=== PATIENT | male | born 1960 | race African-American/Black ===

== ENCOUNTER 2021-09-08 07:59 | Emergency (ER) | payer OTHER ==
[2021-09-08 08:09] VITALS: BP 134/85; PULSE 95; TEMP 98.1; BMI 31.3
[2021-09-08] MEDS ORDERED: FAMOTIDINE 20 MG/50 ML IVPB 20 MG/50 ML MG IVPB ONE ×2 (09:31→09:58)
[2021-09-08] MEDS ORDERED: ONDANSETRON 4 MG/2 ML VIAL IVPUSH ONE (09:31)
[2021-09-08] MEDS ORDERED: SODIUM CHLORIDE 1,000 ML IV STA (09:31)
[2021-09-08] MEDS ORDERED: ACETAMINOPHEN 1000 MG/100 ML BAG IVPB ONE (09:31)
[2021-09-08] MEDS ORDERED: MAG HYDROX/AL HYDROX/SIMETH 30 ML UNIT-DOSE CUP PO ONE (09:47)
[2021-09-08] MEDS ORDERED: ACETAMINOPHEN INJECTION 100 ML IVPB ONE (09:58)
[2021-09-08] MEDS ORDERED: ONDANSETRON 4 MG/2 ML VIAL ONE (09:58)
[2021-09-08 10:08] LABS: BASO % 0.3 % (0-2.0); EOS % 1.8 % (0-4.5); HEMATOCRIT 40.1 % (35.4-49); HEMOGLOBIN 12.8 GM/dL (11.7-16.9); LYMPH % 9.6 % (8-40); MCH 24.7 pg (25.7-33.7); MEAN CELL VOLUME 77.1 fl (80-96); MEAN PLT VOLUME 6.8 fl (7.5-11.1); MONO % 6.4 % (3.8-10.2); NEUT % 81.9 % (42.8-82.8); PLATELET COUNT 700 10^3/uL (134-434); RBC 5.21 M/mm3 (4.00-5.60); RDW 15.5 % (11.9-15.9); WHITE BLOOD COUNT 8.5 K/mm3 (4.0-10.0)
[2021-09-08] MEDS ORDERED: MAG HYDROX/AL HYDROX/SIMETH 30 ML UNIT-DOSE CUP ONE (10:15)
[2021-09-08 10:27] LABS: EPI CELLS 26 /uL (0-25.1); HYALINE CASTS 23 /uL (0-3.1); URINE APPEARANCE CLEAR; URINE BACTERIA 13 /uL (0-1359); URINE BILIRUBIN 2+ (NEGATIVE); URINE COLOR DK YELLOW; URINE GLUCOSE (UA) NEGATIVE (NEGATIVE); URINE KETONE 2+ (NEGATIVE); URINE LEUK ESTERASE NEGATIVE (NEGATIVE); URINE NITRITE NEGATIVE (NEGATIVE); URINE PROTEIN 2+ (NEGATIVE); URINE RBC 11 /uL (0-23.9); URINE WBC 38 /uL (0-25.8)
[2021-09-08 10:28] LABS: CALCIUM 9.4 mg/dL (8.5-10.1); MAGNESIUM 2.5 mg/dL (1.8-2.4)
[2021-09-08 10:29] LABS: ALBUMIN 3.8 g/dl (3.4-5.0); BLOOD UREA NITROGEN 12.9 mg/dL (7-18)
[2021-09-08 10:31] LABS: CREATININE 0.9 mg/dL (0.55-1.3); PHOSPHOROUS 3.4 mg/dL (2.5-4.9)
[2021-09-08 10:33] LABS: BILIRUBIN,TOTAL 0.8 mg/dL (0.2-1); TOT PROT 8.6 g/dl (6.4-8.2)
== END 2021-09-08 12:37 | disposition home or self-care (01) ==
LOC: JER 07:59
PROC: 3E0333Z Introduction of Anti-inflammatory into Peripheral Vein, Percutaneous Approach (ICD-10-PCS; principal; 2021-09-08)
PROC: 3E033GC Introduction of Other Therapeutic Substance into Peripheral Vein, Percutaneous Approach (ICD-10-PCS; 2021-09-08)
PROC: 3E033GC Introduction of Other Therapeutic Substance into Peripheral Vein, Percutaneous Approach (ICD-10-PCS; 2021-09-08)
PROC: 3E0337Z Introduction of Electrolytic and Water Balance Substance into Peripheral Vein, Percutaneous Approach (ICD-10-PCS; 2021-09-08)
DX: R10.13 Epigastric pain (principal)
CPT/HCPCS: 36415; 80053; 81003; 83690; 83735; 84100; 84484; 85025; 93005; 93010; 99285-25

== ENCOUNTER 2021-09-16 19:20 | Inpatient (IN) | payer OTHER ==
[2021-09-16] MEDS ORDERED: SODIUM CHLORIDE 0.9% 500 ML INFUS.BAG IV ONE (20:54)
[2021-09-16] MEDS ORDERED: KETOROLAC TROMETHAMINE 30 MG/1 ML VIAL IVPUSH ONE (20:59)
[2021-09-16] MEDS ORDERED: KETOROLAC TROMETHAMINE 30 MG/1 ML VIAL ONE (22:10)
[2021-09-16 22:29] LABS: BASO % 0.4 % (0-2.0); EOS % 1.9 % (0-4.5); HEMATOCRIT 39.6 % (35.4-49); LYMPH % 10.3 % (8-40); MCH 25.2 pg (25.7-33.7); MCHC 32.8 g/dl (32.0-35.9); MEAN PLT VOLUME 6.6 fl (7.5-11.1); NEUT % 74.4 % (42.8-82.8); PLATELET COUNT 770 10^3/uL (134-434); RBC 5.15 M/mm3 (4.00-5.60); RDW 16.5 % (11.9-15.9); WHITE BLOOD COUNT 8.6 K/mm3 (4.0-10.0)
[2021-09-16 22:35] LABS: EPI CELLS 6 /uL (0-25.1); HYALINE CASTS 1 /uL (0-3.1); PH,URINE 5.5 (5.0-8.0); URINE APPEARANCE CLEAR; URINE BILIRUBIN 3+ (NEGATIVE); URINE COLOR DK YELLOW; URINE GLUCOSE (UA) NEGATIVE (NEGATIVE); URINE KETONE 2+ (NEGATIVE); URINE LEUK ESTERASE TRACE (NEGATIVE); URINE NITRITE POSITIVE (NEGATIVE); URINE PROTEIN TRACE (NEGATIVE); URINE RBC 11 /uL (0-23.9); URINE UROBILINOGEN 4.0 E.U/dl mg/dL (0.2-1.0); URINE WBC 5 /uL (0-25.8)
[2021-09-16 22:38] LABS: URINE BACTERIA 1 /uL (0-1359)
[2021-09-16 22:51] LABS: BLOOD UREA NITROGEN 9.2 mg/dL (7-18)
[2021-09-16 22:52] LABS: ALBUMIN 3.7 g/dl (3.4-5.0)
[2021-09-16 22:55] LABS: CREATININE 0.8 mg/dL (0.55-1.3)
[2021-09-16 22:56] LABS: BILIRUBIN,TOTAL 3.2 mg/dL (0.2-1)
[2021-09-16] MEDS ORDERED: SULFAMETHOXAZOLE/TRIMETHOPRIM 800MG/160MG D.S. TABLET PO ONE (23:44)
[2021-09-16] MEDS ORDERED: SULFAMETHOXAZOLE/TRIMETHOPRIM 800MG/160MG D.S. TABLET ONE (23:58)
[2021-09-17] MEDS ORDERED: ONDANSETRON 4 MG/2 ML VIAL IVPUSH PRN (03:32)
[2021-09-17 03:38] LABS: BILIRUBIN,DIRECT 1.5 mg/dL (0.0-0.2)
[2021-09-17] MEDS: LACTATED RINGERS SOLUTION 1,000 ML/1,000 ML INFUS.BAG IV SCH (04:44)
[2021-09-17] MEDS ORDERED: ENOXAPARIN NA (PORCINE) 40 MG/0.4 ML DISP.SYRIN SQ ONE (10:49)
[2021-09-17] MEDS: ENOXAPARIN NA (PORCINE) 40 MG/0.4 ML DISP.SYRIN SQ SCH (11:02)
[2021-09-17] MEDS: ACETAMINOPHEN 1000 MG/100 ML BAG IVPB PRN (22:21)
[2021-09-18] MEDS: LACTATED RINGERS SOLUTION 1,000 ML/1,000 ML INFUS.BAG IV SCH (03:53)
[2021-09-18] MEDS: ACETAMINOPHEN 1000 MG/100 ML BAG IVPB PRN (03:54)
[2021-09-18 10:09] LABS: HEMATOCRIT 35.4 % (35.4-49); HEMOGLOBIN 11.2 GM/dL (11.7-16.9); MCH 24.8 pg (25.7-33.7); MCHC 31.5 g/dl (32.0-35.9); MEAN CELL VOLUME 78.8 fl (80-96); MEAN PLT VOLUME 6.7 fl (7.5-11.1); PLATELET COUNT 677 10^3/uL (134-434); WHITE BLOOD COUNT 6.2 K/mm3 (4.0-10.0)
[2021-09-18] MEDS: ENOXAPARIN NA (PORCINE) 40 MG/0.4 ML DISP.SYRIN SQ SCH (10:14)
[2021-09-18 10:26] LABS: CALCIUM 8.4 mg/dL (8.5-10.1)
[2021-09-18 10:27] LABS: MAGNESIUM 2.2 mg/dL (1.8-2.4)
[2021-09-18 10:30] LABS: BLOOD UREA NITROGEN 7.3 mg/dL (7-18); CREATININE 0.6 mg/dL (0.55-1.3); PHOSPHOROUS 3.4 mg/dL (2.5-4.9)
[2021-09-18 10:31] LABS: BILIRUBIN,TOTAL 2.4 mg/dL (0.2-1)
[2021-09-18 10:33] LABS: ALBUMIN 2.8 g/dl (3.4-5.0); TOT PROT 6.3 g/dl (6.4-8.2)
[2021-09-18 14:18] VITALS: BMI 32.2
[2021-09-19] MEDS: LACTATED RINGERS SOLUTION 1,000 ML/1,000 ML INFUS.BAG IV SCH (02:54)
[2021-09-19] MEDS: ACETAMINOPHEN 1000 MG/100 ML BAG IVPB PRN ×2 (02:54→09:05)
[2021-09-19 08:06] LABS: CARCINOEMBRYONIC ANTIGEN 88.3 ng/mL (0.0-4.7)
[2021-09-19 08:19] VITALS: BP 137/79; PULSE 60; TEMP 98.7
[2021-09-19] MEDS ORDERED: DEXTROSE 5%-LACTATED RINGERS 1,000 ML IV SCH (08:45)
[2021-09-19 09:00] LABS: BASO % 0.4 % (0-2.0); EOS % 3.9 % (0-4.5); HEMATOCRIT 36.3 % (35.4-49); HEMOGLOBIN 11.4 GM/dL (11.7-16.9); LYMPH % 15.4 % (8-40); MCH 24.6 pg (25.7-33.7); MCHC 31.3 g/dl (32.0-35.9); MEAN CELL VOLUME 78.7 fl (80-96); MEAN PLT VOLUME 6.7 fl (7.5-11.1); NEUT % 62.3 % (42.8-82.8); PLATELET COUNT 660 10^3/uL (134-434); RBC 4.61 M/mm3 (4.00-5.60); RDW 16.7 % (11.9-15.9); WHITE BLOOD COUNT 5.9 K/mm3 (4.0-10.0)
[2021-09-19 10:21] LABS: CALCIUM 8.5 mg/dL (8.5-10.1)
[2021-09-19 10:22] LABS: BLOOD UREA NITROGEN 6.1 mg/dL (7-18); MAGNESIUM 2.2 mg/dL (1.8-2.4)
[2021-09-19 10:25] LABS: CREATININE 0.5 mg/dL (0.55-1.3); PHOSPHOROUS 3.4 mg/dL (2.5-4.9)
== END 2021-09-19 12:50 | disposition left against medical advice (07) | DRG 247 ==
LOC: JER 19:20 → JERBED 23:57 → J7W 09-17 21:50
PROVIDERS: ADMIT Internal Medicine; ATTEND Internal Medicine
DX: K56.609 Unspecified intestinal obstruction, unspecified as to partial versus complete obstruction (principal); K86.2 Cyst of pancreas; D75.839 Thrombocytosis, unspecified; K40.90 Unilateral inguinal hernia, without obstruction or gangrene, not specified as recurrent; R63.4 Abnormal weight loss; R91.1 Solitary pulmonary nodule; R97.0 Elevated carcinoembryonic antigen [CEA]; R97.8 Other abnormal tumor markers; E66.9 Obesity, unspecified; Z68.32 Body mass index [BMI] 32.0-32.9, adult
CPT/HCPCS: 36415; 71046-TC-FY; 71250-TC; 74019-TC-FY; 74177-TC; 80048; 80053; 81003; 82248; 82378; 82728; 83540; 83550; 83735; 84100; 85025; 85027; 86301; 87086; 93005; 93010; 99285-25; C9803-CS; U0003; U0005

== ENCOUNTER 2021-09-22 16:00 | Inpatient (IN) | payer OTHER ==
[2021-09-22] MEDS ORDERED: LACTATED RINGERS SOLUTION 1,000 ML/1,000 ML INFUS.BAG IV SCH (17:30)
[2021-09-22] MEDS ORDERED: LIDOCAINE HCL 2% JELLY 10 ML CARTRIDGE UR ONE (17:37)
[2021-09-22] MEDS ORDERED: LIDOCAINE HCL 2% JELLY 10 ML CARTRIDGE ONE (17:39)
[2021-09-22 18:51] LABS: BASO % 0.3 % (0-2.0); EOS % 1.4 % (0-4.5); HEMATOCRIT 37.5 % (35.4-49); HEMOGLOBIN 11.8 GM/dL (11.7-16.9); MCHC 31.4 g/dl (32.0-35.9); MEAN CELL VOLUME 79.5 fl (80-96); MEAN PLT VOLUME 6.8 fl (7.5-11.1); MONO % 14.2 % (3.8-10.2); NEUT % 70.1 % (42.8-82.8); PLATELET COUNT 816 10^3/uL (134-434); RBC 4.71 M/mm3 (4.00-5.60); RDW 17.9 % (11.9-15.9); WHITE BLOOD COUNT 5.7 K/mm3 (4.0-10.0)
[2021-09-22 18:58] LABS: INR 1.49 (0.83-1.09); PROTHROMBIN TIME (PATIENT) 17.2 SEC (9.7-13.0)
[2021-09-22 19:01] LABS: ACTIVATED PTT 32.1 SECONDS (25.2-36.5)
[2021-09-22 19:10] LABS: CALCIUM 8.8 mg/dL (8.5-10.1)
[2021-09-22 19:11] LABS: ALBUMIN 3.3 g/dl (3.4-5.0)
[2021-09-22 19:14] LABS: CREATININE 0.6 mg/dL (0.55-1.3)
[2021-09-22 19:15] LABS: TOT PROT 7.3 g/dl (6.4-8.2)
[2021-09-22 19:16] LABS: BILIRUBIN,TOTAL 2.4 mg/dL (0.2-1)
[2021-09-22] MEDS ORDERED: ACETAMINOPHEN 1000 MG/100 ML BAG IVPB ONE (23:05)
[2021-09-22] MEDS ORDERED: ONDANSETRON 4 MG/2 ML VIAL IVPUSH PRN (23:53)
[2021-09-23] MEDS: DEXTROSE 5%-NORMAL SALINE 1,000 ML IV SCH ×2 (00:45→11:55)
[2021-09-23 02:43] VITALS: BMI 31.0
[2021-09-23] MEDS ORDERED: ACETAMINOPHEN 1000 MG/100 ML BAG IVPB PRN (05:30)
[2021-09-23 09:04] LABS: BASO % 0.4 % (0-2.0); EOS % 2.4 % (0-4.5); HEMATOCRIT 33.7 % (35.4-49); HEMOGLOBIN 10.9 GM/dL (11.7-16.9); LYMPH % 10.8 % (8-40); MCH 25.5 pg (25.7-33.7); MCHC 32.4 g/dl (32.0-35.9); MEAN CELL VOLUME 78.8 fl (80-96); MEAN PLT VOLUME 6.8 fl (7.5-11.1); MONO % 18.8 % (3.8-10.2); NEUT % 67.6 % (42.8-82.8); PLATELET COUNT 690 10^3/uL (134-434); RBC 4.27 M/mm3 (4.00-5.60); RDW 17.6 % (11.9-15.9); WHITE BLOOD COUNT 4.5 K/mm3 (4.0-10.0)
[2021-09-23 09:17] LABS: CALCIUM 8.3 mg/dL (8.5-10.1)
[2021-09-23 09:18] LABS: BLOOD UREA NITROGEN 7.3 mg/dL (7-18); MAGNESIUM 2.1 mg/dL (1.8-2.4)
[2021-09-23 09:21] LABS: CREATININE 0.5 mg/dL (0.55-1.3)
[2021-09-23] MEDS: ACETAMINOPHEN 1000 MG/100 ML BAG IVPB PRN (14:01)
[2021-09-23] MEDS ORDERED: PHYTONADIONE 10 MG/1 ML AMP IVPB ONE ×2 (15:35→17:45)
[2021-09-24] MEDS ORDERED: ACETAMINOPHEN 325 MG TABLET (FP) PO PRN
[2021-09-24] MEDS: ACETAMINOPHEN 1000 MG/100 ML BAG IVPB PRN (01:12)
[2021-09-24] MEDS: DEXTROSE 5%-NORMAL SALINE 1,000 ML IV SCH (06:01)
[2021-09-24 09:43] LABS: BASO % 0.2 % (0-2.0); EOS % 1.5 % (0-4.5); HEMATOCRIT 37.3 % (35.4-49); HEMOGLOBIN 11.9 GM/dL (11.7-16.9); LYMPH % 8.8 % (8-40); MCH 25.4 pg (25.7-33.7); MCHC 31.9 g/dl (32.0-35.9); MEAN CELL VOLUME 79.6 fl (80-96); MEAN PLT VOLUME 6.8 fl (7.5-11.1); MONO % 13.8 % (3.8-10.2); NEUT % 75.7 % (42.8-82.8); PLATELET COUNT 756 10^3/uL (134-434); RBC 4.69 M/mm3 (4.00-5.60); RDW 18.2 % (11.9-15.9); WHITE BLOOD COUNT 6.3 K/mm3 (4.0-10.0)
[2021-09-24] MEDS ORDERED: MIDAZOLAM HCL 2 MG/2 ML SINGLE DOSE VIAL ONE (09:50)
[2021-09-24] MEDS ORDERED: LIDOCAINE HCL/PF 2% SDV 5ML VIAL ONE (09:51)
[2021-09-24] MEDS ORDERED: ROCURONIUM BROMIDE 50 MG/5 ML SYRINGE ONE ×2 (09:51→11:58)
[2021-09-24] MEDS ORDERED: PROPOFOL 20 ML ONE (09:51)
[2021-09-24] MEDS ORDERED: SUCCINYLCHOLINE CHLORIDE 200 MG/10 ML SYRINGE ONE (09:54)
[2021-09-24 10:06] LABS: CALCIUM 8.8 mg/dL (8.5-10.1)
[2021-09-24 10:07] LABS: ALBUMIN 3.2 g/dl (3.4-5.0); BLOOD UREA NITROGEN 8.6 mg/dL (7-18)
[2021-09-24 10:10] LABS: CREATININE 0.5 mg/dL (0.55-1.3)
[2021-09-24 10:12] LABS: BILIRUBIN,TOTAL 1.8 mg/dL (0.2-1)
[2021-09-24] MEDS ORDERED: CLINDAMYCIN 900 MG PREMIX BAG IVPB ONE (11:30)
[2021-09-24] MEDS ORDERED: ceFAZolin SODIUM 1 GM VIAL ONE (11:48)
[2021-09-24] MEDS ORDERED: PIPERACILLIN/TAZOBACTAM 3.375 GM VIAL IVPB ONE (11:50)
[2021-09-24] MEDS ORDERED: GENTAMICIN SO4 80 MG/2 ML VIAL ONE (12:03)
[2021-09-24] MEDS ORDERED: GENTAMICIN SO4 80 MG/2 ML VIAL IVPB ONE (12:15)
[2021-09-24] MEDS ORDERED: ACETAMINOPHEN INJECTION 100 ML IVPB ONE (12:23)
[2021-09-24] MEDS ORDERED: HYDROmorphone HCl 2 MG/ML VIAL ONE (12:25)
[2021-09-24] MEDS ORDERED: NEOSTIGMINE METHYLSULFATE 0.5 MG/ML - 10 ML MDV ONE (13:45)
[2021-09-24] MEDS ORDERED: GLYCOPYRROLATE 0.2 MG/1 ML VIAL ONE (13:45)
[2021-09-24] MEDS ORDERED: ONDANSETRON 4 MG/2 ML VIAL IVPUSH PRN ×3 (14:18→15:24)
[2021-09-24] MEDS ORDERED: ACETAMINOPHEN 1000 MG/100 ML BAG IVPB ONE (14:20)
[2021-09-24] MEDS ORDERED: LACTATED RINGERS SOLUTION 1,000 ML IV SCH (14:30)
[2021-09-24] MEDS ORDERED: HYDROmorphone *PCA* 10MG/50ML DISP.SYRIN PCA SCH (14:30)
[2021-09-24] MEDS ORDERED: HYDROmorphone *PCA* 10MG/50ML DISP.SYRIN ONE (14:50)
[2021-09-24] MEDS: HYDROmorphone *PCA* 10MG/50ML DISP.SYRIN PCA SCH ×2 (15:05→16:59)
[2021-09-24] MEDS ORDERED: LACTATED RINGERS SOLUTION 1,000 ML/1,000 ML INFUS.BAG IV SCH (15:15)
[2021-09-24] MEDS ORDERED: MEROPENEM 1 GM VIAL (RESTRICTED TO ID) IVPB ONE ×2 (16:42→23:13)
[2021-09-24] MEDS ORDERED: DEXTROSE 5%-WATER 100 ML IVPB ONE ×2 (16:42→23:13)
[2021-09-24] MEDS: LACTATED RINGERS SOLUTION 1,000 ML IV SCH (17:00)
[2021-09-24] MEDS: MEROPENEM 1 GM in DEXTROSE 5%-WATER 100 ML IVPB SCH ×2 (17:00→23:19)
[2021-09-24] MEDS: ACETAMINOPHEN 1000 MG/100 ML BAG IVPB SCH (21:55)
[2021-09-24] MEDS: FAMOTIDINE 20 MG/50 ML IVPB 20 MG/50 ML MG IVPB SCH (21:55)
[2021-09-24] MEDS: HEPARIN NA (PORCINE) 5,000 UNITS/ML 1ML VIAL SQ SCH (21:56)
[2021-09-25] MEDS: ACETAMINOPHEN 1000 MG/100 ML BAG IVPB SCH ×5 (01:14→20:14)
[2021-09-25] MEDS: LACTATED RINGERS SOLUTION 1,000 ML IV SCH ×2 (02:54→18:36)
[2021-09-25] MEDS ORDERED: MEROPENEM 1 GM VIAL (RESTRICTED TO ID) IVPB ONE (05:40)
[2021-09-25] MEDS ORDERED: DEXTROSE 5%-WATER 100 ML IVPB ONE ×2 (05:40→13:00)
[2021-09-25] MEDS: MEROPENEM 1 GM in DEXTROSE 5%-WATER 100 ML IVPB SCH (06:33)
[2021-09-25 08:36] LABS: EOS % 0.1 % (0-4.5); HEMOGLOBIN 11.9 GM/dL (11.7-16.9); LYMPH % 3.9 % (8-40); MCH 25.2 pg (25.7-33.7); MCHC 31.3 g/dl (32.0-35.9); MEAN CELL VOLUME 80.3 fl (80-96); MEAN PLT VOLUME 6.9 fl (7.5-11.1); MONO % 6.9 % (3.8-10.2); NEUT % 89.1 % (42.8-82.8); PLATELET COUNT 651 10^3/uL (134-434); RBC 4.73 M/mm3 (4.00-5.60); RDW 18.7 % (11.9-15.9); WHITE BLOOD COUNT 13.1 K/mm3 (4.0-10.0)
[2021-09-25 09:04] LABS: CALCIUM 8.1 mg/dL (8.5-10.1)
[2021-09-25 09:05] LABS: BLOOD UREA NITROGEN 13.9 mg/dL (7-18); MAGNESIUM 1.8 mg/dL (1.8-2.4)
[2021-09-25 09:08] LABS: CREATININE 0.7 mg/dL (0.55-1.3); PHOSPHOROUS 4.7 mg/dL (2.5-4.9)
[2021-09-25] MEDS: FAMOTIDINE 20 MG/50 ML IVPB 20 MG/50 ML MG IVPB SCH ×2 (09:26→23:08)
[2021-09-25] MEDS: HEPARIN NA (PORCINE) 5,000 UNITS/ML 1ML VIAL SQ SCH ×2 (09:26→23:07)
[2021-09-25] MEDS ORDERED: SODIUM CHLORIDE 1,000 ML IV STA (12:42)
[2021-09-25] MEDS: CEFTRIAXONE 2 GM in DEXTROSE 5%-WATER 2 GM/100 ML BAG IVPB SCH (13:05)
[2021-09-25] MEDS ORDERED: SODIUM CHLORIDE 1,000 ML IV SCH (15:45)
[2021-09-25] MEDS: HYDROmorphone *PCA* 10MG/50ML DISP.SYRIN PCA SCH (18:06)
[2021-09-26] MEDS: ACETAMINOPHEN 1000 MG/100 ML BAG IVPB SCH ×3 (01:30→18:43)
[2021-09-26] MEDS: LACTATED RINGERS SOLUTION 1,000 ML IV SCH ×2 (03:20→11:52)
[2021-09-26 09:13] LABS: BASO % 0.1 % (0-2.0); HEMATOCRIT 30.6 % (35.4-49); LYMPH % 3.7 % (8-40); MCH 25.9 pg (25.7-33.7); MCHC 32.6 g/dl (32.0-35.9); MEAN CELL VOLUME 79.3 fl (80-96); MEAN PLT VOLUME 6.7 fl (7.5-11.1); MONO % 5.7 % (3.8-10.2); NEUT % 87.5 % (42.8-82.8); PLATELET COUNT 536 10^3/uL (134-434); RBC 3.86 M/mm3 (4.00-5.60); RDW 18.8 % (11.9-15.9); WHITE BLOOD COUNT 15.4 K/mm3 (4.0-10.0)
[2021-09-26 09:22] LABS: BLOOD UREA NITROGEN 11.1 mg/dL (7-18)
[2021-09-26 09:25] LABS: CREATININE 0.5 mg/dL (0.55-1.3)
[2021-09-26 09:27] LABS: BILIRUBIN,TOTAL 1.6 mg/dL (0.2-1)
[2021-09-26 09:35] LABS: ALBUMIN 1.9 g/dl (3.4-5.0); TOT PROT 4.9 g/dl (6.4-8.2)
[2021-09-26] MEDS ORDERED: LACTATED RINGERS SOLUTION 1000 ML INFUS.BAG IV SCH (10:30)
[2021-09-26] MEDS ORDERED: morphine SULFATE 4 MG/ML VIAL IVPUSH PRN (10:30)
[2021-09-26] MEDS ORDERED: DEXTROSE 5%-WATER 100 ML IVPB ONE (10:54)
[2021-09-26] MEDS: FAMOTIDINE 20 MG/50 ML IVPB 20 MG/50 ML MG IVPB SCH ×2 (11:01→22:01)
[2021-09-26] MEDS: HEPARIN NA (PORCINE) 5,000 UNITS/ML 1ML VIAL SQ SCH ×2 (11:01→22:01)
[2021-09-26] MEDS: CEFTRIAXONE 2 GM in DEXTROSE 5%-WATER 2 GM/100 ML BAG IVPB SCH (11:02)
[2021-09-26] MEDS ORDERED: SODIUM CHLORIDE 0.9% 500 ML INFUS.BAG IV ONE (20:28)
[2021-09-27] MEDS: LACTATED RINGERS SOLUTION 1,000 ML IV SCH ×3 (01:00→20:12)
[2021-09-27] MEDS: ACETAMINOPHEN 1000 MG/100 ML BAG IVPB SCH (02:51)
[2021-09-27] MEDS ORDERED: DEXTROSE 5%-WATER 100 ML IVPB ONE (09:04)
[2021-09-27] MEDS: FAMOTIDINE 20 MG/50 ML IVPB 20 MG/50 ML MG IVPB SCH ×2 (09:12→21:12)
[2021-09-27] MEDS: CEFTRIAXONE 2 GM in DEXTROSE 5%-WATER 2 GM/100 ML BAG IVPB SCH (09:12)
[2021-09-27] MEDS ORDERED: SODIUM CHLORIDE 1,000 ML IV STA (09:19)
[2021-09-27 09:21] LABS: BASO % 0.1 % (0-2.0); EOS % 3.1 % (0-4.5); HEMATOCRIT 28.8 % (35.4-49); HEMOGLOBIN 9.4 GM/dL (11.7-16.9); LYMPH % 3.1 % (8-40); MCH 25.7 pg (25.7-33.7); MCHC 32.5 g/dl (32.0-35.9); MEAN PLT VOLUME 6.6 fl (7.5-11.1); MONO % 6.3 % (3.8-10.2); NEUT % 87.4 % (42.8-82.8); PLATELET COUNT 531 10^3/uL (134-434); RBC 3.65 M/mm3 (4.00-5.60); RDW 18.6 % (11.9-15.9); WHITE BLOOD COUNT 14.2 K/mm3 (4.0-10.0)
[2021-09-27 09:32] LABS: CALCIUM 7.9 mg/dL (8.5-10.1)
[2021-09-27 09:33] LABS: ALBUMIN 1.8 g/dl (3.4-5.0); BLOOD UREA NITROGEN 6.4 mg/dL (7-18)
[2021-09-27 09:34] LABS: CREATININE 0.5 mg/dL (0.55-1.3)
[2021-09-27 09:36] LABS: BILIRUBIN,TOTAL 1.2 mg/dL (0.2-1)
[2021-09-27] MEDS: HEPARIN NA (PORCINE) 5,000 UNITS/ML 1ML VIAL SQ SCH ×2 (10:00→21:12)
[2021-09-28] MEDS: LACTATED RINGERS SOLUTION 1,000 ML IV SCH ×2 (04:00→17:09)
[2021-09-28] MEDS ORDERED: DEXTROSE 5%-WATER 100 ML IVPB ONE (09:08)
[2021-09-28] MEDS: HEPARIN NA (PORCINE) 5,000 UNITS/ML 1ML VIAL SQ SCH ×2 (09:32→21:36)
[2021-09-28] MEDS: FAMOTIDINE 20 MG/50 ML IVPB 20 MG/50 ML MG IVPB SCH ×2 (10:07→21:36)
[2021-09-28] MEDS: CEFTRIAXONE 2 GM in DEXTROSE 5%-WATER 2 GM/100 ML BAG IVPB SCH (11:36)
[2021-09-29] MEDS ORDERED: SODIUM CHLORIDE 500 ML IV STA (04:49)
[2021-09-29] MEDS ORDERED: DEXTROSE 5%-WATER 100 ML IVPB ONE (09:26)
[2021-09-29] MEDS: HEPARIN NA (PORCINE) 5,000 UNITS/ML 1ML VIAL SQ SCH ×2 (09:30→21:01)
[2021-09-29] MEDS: FAMOTIDINE 20 MG/50 ML IVPB 20 MG/50 ML MG IVPB SCH ×2 (09:30→21:01)
[2021-09-29] MEDS: CEFTRIAXONE 2 GM in DEXTROSE 5%-WATER 2 GM/100 ML BAG IVPB SCH (09:31)
[2021-09-29] MEDS: KETOROLAC TROMETHAMINE 15 MG/ML VIAL IVPUSH PRN ×2 (12:12→20:54)
[2021-09-29] MEDS: LACTATED RINGERS SOLUTION 1,000 ML IV SCH ×2 (13:17→20:54)
[2021-09-29 13:46] LABS: BASO % 0.1 % (0-2.0); EOS % 3.7 % (0-4.5); HEMATOCRIT 32.2 % (35.4-49); HEMOGLOBIN 10.5 GM/dL (11.7-16.9); LYMPH % 7.2 % (8-40); MCH 25.5 pg (25.7-33.7); MCHC 32.6 g/dl (32.0-35.9); MEAN CELL VOLUME 78.3 fl (80-96); MEAN PLT VOLUME 6.6 fl (7.5-11.1); MONO % 11.6 % (3.8-10.2); NEUT % 77.4 % (42.8-82.8); PLATELET COUNT 589 10^3/uL (134-434); RBC 4.11 M/mm3 (4.00-5.60); RDW 18.2 % (11.9-15.9); WHITE BLOOD COUNT 8.4 K/mm3 (4.0-10.0)
[2021-09-29 14:14] LABS: CALCIUM 8.1 mg/dL (8.5-10.1)
[2021-09-29 14:15] LABS: BLOOD UREA NITROGEN 5.9 mg/dL (7-18)
[2021-09-29 14:18] LABS: CREATININE 0.5 mg/dL (0.55-1.3)
[2021-09-29 14:19] LABS: BILIRUBIN,TOTAL 0.4 mg/dL (0.2-1)
[2021-09-29 14:20] LABS: TOT PROT 6.1 g/dl (6.4-8.2)
[2021-09-29 14:30] LABS: ALBUMIN 2.3 g/dl (3.4-5.0)
[2021-09-29 14:33] LABS: ANISOCYTOSIS 0; HELMET CELLS 0; HOWELL-JOLLY BODIES 0; MACROCYTOSIS 0; OVALOCYTE 0; ROULEAU 0; SICKELED CELLS 0; TARGET CELLS 0; TEAR DROP CELLS 0; TOXIC GRANULATION 0
[2021-09-29] MEDS ORDERED: POTASSIUM CHLORIDE ORAL LIQUID 20 MEQ/15 ML PO ONE (15:05)
[2021-09-30 08:19] LABS: HEMOGLOBIN 9.5 GM/dL (11.7-16.9); MCH 25.9 pg (25.7-33.7); MCHC 32.7 g/dl (32.0-35.9); MEAN CELL VOLUME 79.3 fl (80-96); MEAN PLT VOLUME 6.9 fl (7.5-11.1); PLATELET COUNT 522 10^3/uL (134-434); RBC 3.65 M/mm3 (4.00-5.60); RDW 18.6 % (11.9-15.9); WHITE BLOOD COUNT 10.3 K/mm3 (4.0-10.0)
[2021-09-30 08:31] LABS: ALBUMIN 2.1 g/dl (3.4-5.0); BLOOD UREA NITROGEN 7.3 mg/dL (7-18)
[2021-09-30 08:34] LABS: CREATININE 0.4 mg/dL (0.55-1.3)
[2021-09-30 08:36] LABS: BILIRUBIN,TOTAL 0.6 mg/dL (0.2-1); TOT PROT 5.4 g/dl (6.4-8.2)
[2021-09-30] MEDS ORDERED: DEXTROSE 5%-WATER 100 ML IVPB ONE (09:15)
[2021-09-30] MEDS: FAMOTIDINE 20 MG/50 ML IVPB 20 MG/50 ML MG IVPB SCH ×2 (09:24→21:52)
[2021-09-30] MEDS: CEFTRIAXONE 2 GM in DEXTROSE 5%-WATER 2 GM/100 ML BAG IVPB SCH (09:26)
[2021-09-30] MEDS: HEPARIN NA (PORCINE) 5,000 UNITS/ML 1ML VIAL SQ SCH ×2 (09:27→21:52)
[2021-09-30 10:50] LABS: ANISOCYTOSIS 1+; MACROCYTOSIS 0; OVALOCYTE 2+
[2021-09-30] MEDS: LACTATED RINGERS SOLUTION 1,000 ML IV SCH (13:56)
[2021-09-30] MEDS: KETOROLAC TROMETHAMINE 15 MG/ML VIAL IVPUSH PRN (21:52)
[2021-10-01] MEDS: LACTATED RINGERS SOLUTION 1,000 ML IV SCH ×2 (02:09→17:07)
[2021-10-01] MEDS ORDERED: DEXTROSE 5%-WATER 100 ML IVPB ONE (10:16)
[2021-10-01] MEDS: CEFTRIAXONE 2 GM in DEXTROSE 5%-WATER 2 GM/100 ML BAG IVPB SCH (10:51)
[2021-10-01] MEDS: FAMOTIDINE 20 MG/50 ML IVPB 20 MG/50 ML MG IVPB SCH ×2 (10:51→22:55)
[2021-10-01] MEDS: HEPARIN NA (PORCINE) 5,000 UNITS/ML 1ML VIAL SQ SCH ×2 (10:51→22:55)
[2021-10-02] MEDS ORDERED: DEXTROSE 5%-WATER 100 ML IVPB ONE (09:59)
[2021-10-02] MEDS: CEFTRIAXONE 2 GM in DEXTROSE 5%-WATER 2 GM/100 ML BAG IVPB SCH (10:05)
[2021-10-02] MEDS: FAMOTIDINE 20 MG/50 ML IVPB 20 MG/50 ML MG IVPB SCH ×2 (10:05→23:14)
[2021-10-02] MEDS: HEPARIN NA (PORCINE) 5,000 UNITS/ML 1ML VIAL SQ SCH ×2 (10:06→23:14)
[2021-10-02 12:30] LABS: BASO % 0.5 % (0-2.0); EOS % 4.8 % (0-4.5); HEMATOCRIT 33.7 % (35.4-49); HEMOGLOBIN 10.9 GM/dL (11.7-16.9); LYMPH % 7.1 % (8-40); MCH 25.7 pg (25.7-33.7); MCHC 32.3 g/dl (32.0-35.9); MEAN CELL VOLUME 79.7 fl (80-96); MEAN PLT VOLUME 6.9 fl (7.5-11.1); MONO % 7.4 % (3.8-10.2); NEUT % 80.2 % (42.8-82.8); PLATELET COUNT 719 10^3/uL (134-434); RBC 4.23 M/mm3 (4.00-5.60); RDW 19.1 % (11.9-15.9); WHITE BLOOD COUNT 9.1 K/mm3 (4.0-10.0)
[2021-10-02 13:33] LABS: ALBUMIN 2.5 g/dl (3.4-5.0); BILIRUBIN,TOTAL 0.7 mg/dL (0.2-1); BLOOD UREA NITROGEN 3.5 mg/dL (7-18); CALCIUM 8.2 mg/dL (8.5-10.1); CREATININE 0.5 mg/dL (0.55-1.3); TOT PROT 6.4 g/dl (6.4-8.2)
[2021-10-02] MEDS: LACTATED RINGERS SOLUTION 1,000 ML IV SCH (17:00)
[2021-10-02] MEDS: metroNIDAZOLE 250 MG TABLET PO SCH (23:15)
[2021-10-02] MEDS: CEFUROXIME AXETIL 500 MG TABLET PO SCH (23:16)
[2021-10-03] MEDS: metroNIDAZOLE 250 MG TABLET PO SCH ×3 (05:35→21:06)
[2021-10-03] MEDS: LACTATED RINGERS SOLUTION 1,000 ML IV SCH (05:44)
[2021-10-03] MEDS: FAMOTIDINE 20 MG/50 ML IVPB 20 MG/50 ML MG IVPB SCH (09:59)
[2021-10-03] MEDS: CEFUROXIME AXETIL 500 MG TABLET PO SCH ×2 (09:59→21:06)
[2021-10-03] MEDS: HEPARIN NA (PORCINE) 5,000 UNITS/ML 1ML VIAL SQ SCH ×2 (10:00→21:06)
[2021-10-04] MEDS: metroNIDAZOLE 250 MG TABLET PO SCH ×3 (06:09→21:25)
[2021-10-04 09:10] LABS: BASO % 0.6 % (0-2.0); EOS % 5.5 % (0-4.5); HEMATOCRIT 32.6 % (35.4-49); HEMOGLOBIN 10.6 GM/dL (11.7-16.9); LYMPH % 9.2 % (8-40); MCH 25.7 pg (25.7-33.7); MCHC 32.4 g/dl (32.0-35.9); MEAN CELL VOLUME 79.2 fl (80-96); MEAN PLT VOLUME 6.7 fl (7.5-11.1); MONO % 7.7 % (3.8-10.2); PLATELET COUNT 848 10^3/uL (134-434); RBC 4.12 M/mm3 (4.00-5.60); RDW 18.8 % (11.9-15.9); WHITE BLOOD COUNT 8.1 K/mm3 (4.0-10.0)
[2021-10-04 09:31] LABS: ALBUMIN 2.5 g/dl (3.4-5.0); CALCIUM 8.6 mg/dL (8.5-10.1)
[2021-10-04 09:32] LABS: BLOOD UREA NITROGEN 3.6 mg/dL (7-18)
[2021-10-04 09:34] LABS: CREATININE 0.5 mg/dL (0.55-1.3)
[2021-10-04 09:36] LABS: BILIRUBIN,TOTAL 0.5 mg/dL (0.2-1); TOT PROT 6.1 g/dl (6.4-8.2)
[2021-10-04 09:44] LABS: INR 1.45 (0.83-1.09); PROTHROMBIN TIME (PATIENT) 16.7 SEC (9.7-13.0)
[2021-10-04] MEDS: HEPARIN NA (PORCINE) 5,000 UNITS/ML 1ML VIAL SQ SCH ×2 (10:37→21:25)
[2021-10-04] MEDS: CEFUROXIME AXETIL 500 MG TABLET PO SCH ×2 (10:37→21:25)
[2021-10-05] MEDS: metroNIDAZOLE 250 MG TABLET PO SCH ×3 (06:16→21:26)
[2021-10-05] MEDS: HEPARIN NA (PORCINE) 5,000 UNITS/ML 1ML VIAL SQ SCH ×2 (09:13→21:25)
[2021-10-05] MEDS: CEFUROXIME AXETIL 500 MG TABLET PO SCH ×2 (09:13→21:29)
[2021-10-06] MEDS: metroNIDAZOLE 250 MG TABLET PO SCH ×2 (06:26→13:35)
[2021-10-06 06:38] VITALS: RESP 18
[2021-10-06] MEDS: HEPARIN NA (PORCINE) 5,000 UNITS/ML 1ML VIAL SQ SCH (10:08)
[2021-10-06] MEDS: CEFUROXIME AXETIL 500 MG TABLET PO SCH (10:08)
[2021-10-06 15:03] VITALS: BP 139/73; PULSE 95; TEMP 97.8
== END 2021-10-06 18:13 | disposition home or self-care (01) | DRG 221 ==
LOC: JER 16:00 → JERBED 18:00 → J7W 22:37 → J8W 09-25 21:29
PROVIDERS: ADMIT Internal Medicine; ATTEND Internal Medicine
PROC: 0DT90ZZ Resection of Duodenum, Open Approach (ICD-10-PCS; 2021-09-24)
PROC: 0DN90ZZ Release Duodenum, Open Approach (ICD-10-PCS; 2021-09-24)
PROC: 0YQ50ZZ Repair Right Inguinal Region, Open Approach (ICD-10-PCS; 2021-09-24)
PROC: 0DTF0ZZ Resection of Right Large Intestine, Open Approach (ICD-10-PCS; principal; 2021-09-24 11:15)
DX: C18.9 Malignant neoplasm of colon, unspecified (principal); K56.609 Unspecified intestinal obstruction, unspecified as to partial versus complete obstruction; R17 Unspecified jaundice; Z68.31 Body mass index [BMI] 31.0-31.9, adult; D50.9 Iron deficiency anemia, unspecified; D75.838 Other thrombocytosis; E04.9 Nontoxic goiter, unspecified; K42.9 Umbilical hernia without obstruction or gangrene; K86.9 Disease of pancreas, unspecified; R11.2 Nausea with vomiting, unspecified; R63.0 Anorexia; R63.4 Abnormal weight loss; R91.1 Solitary pulmonary nodule; D72.829 Elevated white blood cell count, unspecified; Z88.0 Allergy status to penicillin
CPT/HCPCS: 36415; 71046-TC-FY; 71250-TC; 74018-TC-FY; 74177-TC; 80048; 80053; 83735; 84100; 84439; 84443; 85025; 85610; 85730; 86140; 86850; 86900; 86901; 87324; 87449; 88307-TC; 88309-TC; 93005; 93010; 94010; 94760; 97116-GP; 97161-GP; 99285-25; C9803-CS; J1644; Q9967; U0003; U0005

== ENCOUNTER 2021-12-18 04:56 | Day surgery (SDC) | payer OTHER ==
[2021-12-15 12:25] VITALS: BMI 23.6
[2021-12-18 09:19] LABS: EOS % 4.6 % (0-4.5); HEMATOCRIT 39.7 % (35.4-49); HEMOGLOBIN 12.5 GM/dL (11.7-16.9); LYMPH % 15.8 % (8-40); MCH 24.8 pg (25.7-33.7); MCHC 31.4 g/dl (32.0-35.9); MEAN CELL VOLUME 79.1 fl (80-96); MONO % 8.4 % (3.8-10.2); NEUT % 70.2 % (42.8-82.8); PLATELET COUNT 629 10^3/uL (134-434); RBC 5.02 M/mm3 (4.00-5.60); RDW 15.9 % (11.9-15.9); WHITE BLOOD COUNT 6.8 K/mm3 (4.0-10.0)
[2021-12-18 09:28] LABS: INR 1.36 (0.83-1.09); PROTHROMBIN TIME (PATIENT) 15.7 SEC (9.7-13.0)
[2021-12-18 09:43] LABS: CALCIUM 9.2 mg/dL (8.5-10.1)
[2021-12-18 09:44] LABS: ALBUMIN 3.5 g/dl (3.4-5.0); BLOOD UREA NITROGEN 8.8 mg/dL (7-18)
[2021-12-18 09:47] LABS: CREATININE 0.8 mg/dL (0.55-1.3)
[2021-12-18 09:49] LABS: BILIRUBIN,TOTAL 0.5 mg/dL (0.2-1); TOT PROT 7.7 g/dl (6.4-8.2)
== END 2021-12-18 09:25 | disposition home or self-care (01) ==
LOC: JRADIR 04:56
PROVIDERS: ATTEND Internal Medicine Hematology & Oncology
PROC: 0JH63WZ Insertion of Totally Implantable Vascular Access Device into Chest Subcutaneous Tissue and Fascia, Percutaneous Approach (ICD-10-PCS; principal; 2021-12-18)
PROC: 3E04305 Introduction of Other Antineoplastic into Central Vein, Percutaneous Approach (ICD-10-PCS; 2021-12-18)
PROC: 3E04305 Introduction of Other Antineoplastic into Central Vein, Percutaneous Approach (ICD-10-PCS; 2021-12-18)
DX: Z51.11 Encounter for antineoplastic chemotherapy (principal); C18.0 Malignant neoplasm of cecum
CPT/HCPCS: 36561; 96367; 96375; 96411; 96413; 96416; C1788; 36415; 80053; 85025; 85610

== ENCOUNTER 2021-12-19 05:00 | Day surgery (SDC) | payer OTHER ==
[2021-12-19] MEDS ORDERED: ATROPINE SO4 0.4 MG/1 ML VIAL IVPUSH ONE (09:00)
[2021-12-19] MEDS ORDERED: PALONOSETRON HCL 0.25 MG/5 ML VIAL IVPUSH ONE (09:00)
[2021-12-19] MEDS ORDERED: DEXAMETHASONE SODIUM PHOSPHATE 10 MG in SODIUM CHLORIDE 50 ML IVPB ONE (09:00)
[2021-12-19] MEDS ORDERED: SODIUM CHLORIDE 250 ML IV ONE (09:00)
[2021-12-19] MEDS ORDERED: PORTA CATH FLUSH 10 ML IVPUSH PRN (09:13)
[2021-12-19] MEDS ORDERED: DEXTROSE 5% IVPB ONE (09:30)
[2021-12-19] MEDS ORDERED: WATER IVPB ONE (09:30)
[2021-12-19] MEDS ORDERED: LEUCOVORIN IVPB ONE (09:30)
[2021-12-19] MEDS ORDERED: MIDAZOLAM HCL 2 MG/2 ML SINGLE DOSE VIAL ONE (10:00)
[2021-12-19] MEDS ORDERED: IRINOTECAN HCL 370 MG in DEXTROSE 5%-WATER - 500 ML IVPB ONE (10:00)
[2021-12-19] MEDS ORDERED: FENTANYL CITRATE/PF 50 MCG/ML VIAL IVPUSH ONE ×2 (10:25→10:38)
[2021-12-19] MEDS ORDERED: MIDAZOLAM HCL 2 MG/2 ML SINGLE DOSE VIAL IVPUSH ONE ×2 (10:25→10:38)
[2021-12-19] MEDS ORDERED: SODIUM CHLORIDE 500 ML IV ONE (10:30)
[2021-12-19 10:59] VITALS: BMI 27.1
[2021-12-19] MEDS ORDERED: FLUOROURACIL 500 MG/10 ML VIAL IVPUSH ONE (11:30)
[2021-12-19] MEDS ORDERED: SODIUM CHLORIDE CP ONE (11:45)
[2021-12-19] MEDS ORDERED: FLUOROURACIL CP ONE (11:45)
[2021-12-19 18:52] VITALS: BP 133/84; PULSE 75; RESP 20; TEMP 97.2
== END 2021-12-19 17:00 | disposition home or self-care (01) ==
LOC: JRADIR 05:00
PROVIDERS: ATTEND Internal Medicine Hematology & Oncology
PROC: 0JH63XZ Insertion of Tunneled Vascular Access Device into Chest Subcutaneous Tissue and Fascia, Percutaneous Approach (ICD-10-PCS; principal; 2021-12-19)
PROC: 3E04305 Introduction of Other Antineoplastic into Central Vein, Percutaneous Approach (ICD-10-PCS; 2021-12-19)
DX: C18.0 Malignant neoplasm of cecum (principal)
CPT/HCPCS: 36561; 96366; 96367; 96375; 96411; 96413; 96416; C1788; 77001-TC-FY; G0498; J2469; J9190; J9206

== ENCOUNTER 2021-12-21 14:58 | Day surgery (SDC) | payer OTHER ==
[2021-12-21 18:38] VITALS: BP 107/63; PULSE 100; RESP 20; TEMP 97.9
[2021-12-21] MEDS ORDERED: PORTA CATH FLUSH 10 ML IVPUSH PRN (18:43)
== END 2021-12-21 18:58 | disposition home or self-care (01) ==
LOC: JONCCHEMO 14:58
PROVIDERS: ATTEND Internal Medicine Hematology & Oncology
DX: Z53.8 Procedure and treatment not carried out for other reasons (principal)

== ENCOUNTER 2022-01-03 10:41 | Day surgery (SDC) | payer OTHER ==
[~2022-01-03 10:41] MED LIST: ATROPINE SO4 0.4 MG/1 ML VIAL IVPUSH ONE; BEVACIZUMAB AWWB IVPB ONE; DEXAMETHASONE SODIUM PHOSPHATE 10 MG in SODIUM CHLORIDE 50 ML IVPB ONE; DEXTROSE 5% IVPB ONE; IRINOTECAN HCL 370 MG in DEXTROSE 5%-WATER - 500 ML IVPB ONE; LEUCOVORIN IVPB ONE; PALONOSETRON HCL 0.25 MG/5 ML VIAL IVPUSH ONE; SODIUM CHLORIDE 250 ML IV ONE; SODIUM CHLORIDE IVPB ONE; WATER IVPB ONE
[2022-01-03 11:24] LABS: BASO % 0.6 % (0-2.0); EOS % 6.2 % (0-4.5); HEMATOCRIT 34.3 % (35.4-49); HEMOGLOBIN 11.1 GM/dL (11.7-16.9); LYMPH % 23.4 % (8-40); MCH 25.6 pg (25.7-33.7); MCHC 32.5 g/dl (32.0-35.9); MEAN CELL VOLUME 78.7 fl (80-96); MEAN PLT VOLUME 6.2 fl (7.5-11.1); MONO % 10.2 % (3.8-10.2); NEUT % 59.6 % (42.8-82.8); PLATELET COUNT 562 10^3/uL (134-434); RBC 4.36 M/mm3 (4.00-5.60); RDW 16.1 % (11.9-15.9); WHITE BLOOD COUNT 4.2 K/mm3 (4.0-10.0)
[2022-01-03 11:53] LABS: BLOOD UREA NITROGEN 6.9 mg/dL (7-18); CALCIUM 8.5 mg/dL (8.5-10.1)
[2022-01-03 11:54] LABS: ALBUMIN 3.3 g/dl (3.4-5.0); MAGNESIUM 2.2 mg/dL (1.8-2.4)
[2022-01-03 11:56] LABS: BILIRUBIN,DIRECT 0.2 mg/dL (0.0-0.2)
[2022-01-03 11:57] LABS: CREATININE 0.8 mg/dL (0.55-1.3); TOT PROT 7.3 g/dl (6.4-8.2)
[2022-01-03 12:00] LABS: BILIRUBIN,TOTAL 0.3 mg/dL (0.2-1)
[2022-01-03] MEDS ORDERED: FLUOROURACIL 500 MG/10 ML VIAL IVPUSH ONE (12:30)
[2022-01-03] MEDS ORDERED: SODIUM CHLORIDE CP ONE (12:45)
[2022-01-03] MEDS ORDERED: FLUOROURACIL CP ONE (12:45)
[2022-01-03] MEDS ORDERED: DEXAMETHASONE SOD PHOSPHATE 10 MG/1 ML VIAL ONE (13:09)
[2022-01-03 17:21] VITALS: BP 128/82; PULSE 85; RESP 18; TEMP 98.4
[2022-01-05 14:07] LABS: TOTAL PROTEIN, URINE 14.8 mg/dL (Not Estab.)
== END 2022-01-03 16:57 | disposition home or self-care (01) ==
LOC: JONCCHEMO 10:41
PROVIDERS: ATTEND Internal Medicine Hematology & Oncology
DX: Z51.11 Encounter for antineoplastic chemotherapy (principal); C18.0 Malignant neoplasm of cecum
CPT/HCPCS: 36415; 80048; 80076; 83735; 84156; 84157; 85025; 96366; 96367; 96375; 96411; 96413; 96415; 96417; G0498; J1100; J2469; J9190; J9206; Q5107

== ENCOUNTER 2022-01-05 08:25 | Day surgery (SDC) | payer OTHER ==
[2022-01-05 17:57] VITALS: BP 122/73; PULSE 97; RESP 20; TEMP 98.1
[2022-01-05] MEDS ORDERED: PORTA CATH FLUSH 10 ML IVPUSH PRN (17:57)
== END 2022-01-05 15:00 | disposition home or self-care (01) ==
LOC: JONCCHEMO 08:25
PROVIDERS: ATTEND Internal Medicine Hematology & Oncology
DX: Z53.8 Procedure and treatment not carried out for other reasons (principal)

== ENCOUNTER 2022-01-17 10:12 | Day surgery (SDC) | payer OTHER ==
[~2022-01-17 10:12] MED LIST changes: -BEVACIZUMAB AWWB IVPB ONE; +BEVACIZUMAB-AWWB 400 MG, BEVACIZUMAB-AWWB 30 MG in SODIUM CHLORIDE 100 ML IVPB ONE; -DEXTROSE 5% IVPB ONE; -IRINOTECAN HCL 370 MG in DEXTROSE 5%-WATER - 500 ML IVPB ONE; +IRON SUCROSE INJECTION 200 MG in SODIUM CHLORIDE 100 ML IVPB ONE; -LEUCOVORIN IVPB ONE; -SODIUM CHLORIDE IVPB ONE; -WATER IVPB ONE
[2022-01-17] MEDS ORDERED: LEUCOVORIN IVPB ONE (10:30)
[2022-01-17] MEDS ORDERED: IRINOTECAN HCL 370 MG in DEXTROSE 5%-WATER - 500 ML IVPB ONE (10:30)
[2022-01-17] MEDS ORDERED: DEXTROSE 5% IVPB ONE (10:30)
[2022-01-17] MEDS ORDERED: WATER IVPB ONE (10:30)
[2022-01-17 11:01] LABS: BASO % 0.6 % (0-2.0); EOS % 4.8 % (0-4.5); HEMATOCRIT 37.2 % (35.4-49); HEMOGLOBIN 11.9 GM/dL (11.7-16.9); LYMPH % 21.2 % (8-40); MCH 25.2 pg (25.7-33.7); MEAN CELL VOLUME 78.8 fl (80-96); MEAN PLT VOLUME 6.3 fl (7.5-11.1); MONO % 8.4 % (3.8-10.2); PLATELET COUNT 491 10^3/uL (134-434); RBC 4.72 M/mm3 (4.00-5.60); RDW 16.5 % (11.9-15.9); WHITE BLOOD COUNT 4.5 K/mm3 (4.0-10.0)
[2022-01-17 11:31] LABS: ALBUMIN 3.4 g/dl (3.4-5.0); BLOOD UREA NITROGEN 7.5 mg/dL (7-18); CALCIUM 8.6 mg/dL (8.5-10.1); MAGNESIUM 2.2 mg/dL (1.8-2.4)
[2022-01-17 11:33] LABS: BILIRUBIN,DIRECT 0.2 mg/dL (0.0-0.2)
[2022-01-17 11:34] LABS: CREATININE 0.7 mg/dL (0.55-1.3); TOT PROT 7.3 g/dl (6.4-8.2)
[2022-01-17 11:35] LABS: BILIRUBIN,TOTAL 0.6 mg/dL (0.2-1)
[2022-01-17] MEDS ORDERED: FLUOROURACIL 500 MG/10 ML VIAL IVPUSH ONE (12:30)
[2022-01-17] MEDS ORDERED: FLUOROURACIL CP ONE (12:45)
[2022-01-17] MEDS ORDERED: SODIUM CHLORIDE CP ONE (12:45)
[2022-01-17 17:34] VITALS: RESP 18; TEMP 98.1
[2022-01-17 17:45] VITALS: BP 148/91; PULSE 72
[2022-01-17] MEDS ORDERED: PORTA CATH FLUSH 10 ML IVPUSH PRN (17:45)
== END 2022-01-17 17:15 | disposition home or self-care (01) ==
LOC: JONCCHEMO 10:12
PROVIDERS: ATTEND Internal Medicine Hematology & Oncology
DX: Z51.11 Encounter for antineoplastic chemotherapy (principal); C18.2 Malignant neoplasm of ascending colon; C78.7 Secondary malignant neoplasm of liver and intrahepatic bile duct; D50.9 Iron deficiency anemia, unspecified
CPT/HCPCS: 36415; 80048; 80076; 83735; 84156; 85025; 96366; 96367; 96375; 96411; 96413; 96417; G0498; J1756; J2469; J9190; J9206; Q5107

== ENCOUNTER 2022-01-19 14:44 | Day surgery (SDC) | payer OTHER ==
[2022-01-19] MEDS ORDERED: PORTA CATH FLUSH 10 ML IVPUSH PRN (14:45)
[2022-01-19 16:02] VITALS: BP 134/77; PULSE 98; RESP 20; TEMP 97.4
== END 2022-01-19 15:00 | disposition home or self-care (01) ==
LOC: JONCCHEMO 14:44
PROVIDERS: ATTEND Internal Medicine Hematology & Oncology
DX: Z53.8 Procedure and treatment not carried out for other reasons (principal)
CPT/HCPCS: 96365

== ENCOUNTER 2022-01-31 10:45 | Day surgery (SDC) | payer OTHER ==
[2022-01-31] MEDS ORDERED: DEXTROSE 5% IVPB ONE (11:00)
[2022-01-31] MEDS ORDERED: WATER IVPB ONE (11:00)
[2022-01-31] MEDS ORDERED: LEUCOVORIN IVPB ONE (11:00)
[2022-01-31] MEDS ORDERED: IRINOTECAN HCL 370 MG in DEXTROSE 5%-WATER - 500 ML IVPB ONE (11:30)
[2022-01-31 11:56] LABS: BASO % 0.5 % (0-2.0); HEMATOCRIT 37.7 % (35.4-49); LYMPH % 19.8 % (8-40); MCH 25.4 pg (25.7-33.7); MCHC 31.7 g/dl (32.0-35.9); MEAN CELL VOLUME 79.9 fl (80-96); MEAN PLT VOLUME 6.8 fl (7.5-11.1); MONO % 9.8 % (3.8-10.2); NEUT % 63.9 % (42.8-82.8); PLATELET COUNT 539 10^3/uL (134-434); RBC 4.72 M/mm3 (4.00-5.60); RDW 17.5 % (11.9-15.9); WHITE BLOOD COUNT 5.4 K/mm3 (4.0-10.0)
[2022-01-31 12:18] LABS: ALBUMIN 3.5 g/dl (3.4-5.0); BLOOD UREA NITROGEN 10.2 mg/dL (7-18); CALCIUM 9.1 mg/dL (8.5-10.1); MAGNESIUM 2.3 mg/dL (1.8-2.4)
[2022-01-31 12:21] LABS: BILIRUBIN,DIRECT 0.2 mg/dL (0.0-0.2); CREATININE 0.9 mg/dL (0.55-1.3)
[2022-01-31 12:23] LABS: BILIRUBIN,TOTAL 0.5 mg/dL (0.2-1); TOT PROT 7.6 g/dl (6.4-8.2)
[2022-01-31] MEDS ORDERED: FLUOROURACIL 2,500 MG/50 ML VIAL IVPUSH ONE (13:00)
[2022-01-31] MEDS ORDERED: FLUOROURACIL CP ONE (13:30)
[2022-01-31] MEDS ORDERED: SODIUM CHLORIDE CP ONE (13:30)
[2022-01-31 16:12] VITALS: TEMP 98.3
[2022-01-31] MEDS ORDERED: PORTA CATH FLUSH 10 ML IVPUSH PRN (16:12)
[2022-01-31 16:57] VITALS: BP 144/72; PULSE 86; RESP 20
== END 2022-01-31 16:58 | disposition home or self-care (01) ==
LOC: JONCCHEMO 10:45
PROVIDERS: ATTEND Internal Medicine Hematology & Oncology
DX: Z51.11 Encounter for antineoplastic chemotherapy (principal); C18.2 Malignant neoplasm of ascending colon; C78.7 Secondary malignant neoplasm of liver and intrahepatic bile duct; D50.9 Iron deficiency anemia, unspecified
CPT/HCPCS: 36415; 80048; 80076; 82378; 83735; 84156; 85025; 96367; 96375; 96411; 96413; 96415; 96417; G0498; J1756; J2469; J9206; Q5107

== ENCOUNTER 2022-02-02 14:52 | Day surgery (SDC) | payer OTHER ==
[2022-02-02 16:00] VITALS: BP 126/79; PULSE 87; RESP 16; TEMP 98.6
== END 2022-02-02 15:00 | disposition home or self-care (01) ==
LOC: JONCCHEMO 14:52
PROVIDERS: ATTEND Internal Medicine Hematology & Oncology
DX: Z53.8 Procedure and treatment not carried out for other reasons (principal)

== ENCOUNTER 2022-02-14 11:39 | Day surgery (SDC) | payer OTHER ==
[~2022-02-14 11:39] MED LIST changes: +DEXTROSE 5% IVPB ONE; +IRINOTECAN HCL 370 MG in DEXTROSE 5%-WATER - 500 ML IVPB ONE; +LEUCOVORIN IVPB ONE; +WATER IVPB ONE
[2022-02-14 12:19] LABS: BASO % 0.6 % (0-2.0); EOS % 6.1 % (0-4.5); HEMATOCRIT 39.4 % (35.4-49); HEMOGLOBIN 12.3 GM/dL (11.7-16.9); LYMPH % 22.6 % (8-40); MCH 25.5 pg (25.7-33.7); MCHC 31.2 g/dl (32.0-35.9); MEAN CELL VOLUME 81.6 fl (80-96); MEAN PLT VOLUME 6.7 fl (7.5-11.1); MONO % 10.8 % (3.8-10.2); NEUT % 59.9 % (42.8-82.8); PLATELET COUNT 546 10^3/uL (134-434); RBC 4.83 M/mm3 (4.00-5.60); RDW 18.9 % (11.9-15.9); WHITE BLOOD COUNT 5.6 K/mm3 (4.0-10.0)
[2022-02-14 12:29] LABS: ALBUMIN 3.4 g/dl (3.4-5.0); BLOOD UREA NITROGEN 4.9 mg/dL (7-18); MAGNESIUM 2.2 mg/dL (1.8-2.4)
[2022-02-14 12:32] LABS: BILIRUBIN,DIRECT 0.1 mg/dL (0.0-0.2); CREATININE 0.9 mg/dL (0.55-1.3)
[2022-02-14 12:33] LABS: BILIRUBIN,TOTAL 0.4 mg/dL (0.2-1); TOT PROT 7.6 g/dl (6.4-8.2)
[2022-02-14] MEDS ORDERED: FLUOROURACIL 2,500 MG/50 ML VIAL IVPUSH ONE (13:00)
[2022-02-14] MEDS ORDERED: FLUOROURACIL CP ONE (13:15)
[2022-02-14] MEDS ORDERED: SODIUM CHLORIDE CP ONE (13:15)
[2022-02-14 16:53] VITALS: BP 142/73; PULSE 76; RESP 18; TEMP 98.7
[2022-02-14] MEDS ORDERED: PORTA CATH FLUSH 10 ML IVPUSH PRN (17:02)
== END 2022-02-14 17:05 | disposition home or self-care (01) ==
LOC: JONCCHEMO 11:39
PROVIDERS: ATTEND Internal Medicine Hematology & Oncology
DX: Z51.11 Encounter for antineoplastic chemotherapy (principal); C18.2 Malignant neoplasm of ascending colon; C78.7 Secondary malignant neoplasm of liver and intrahepatic bile duct; D50.9 Iron deficiency anemia, unspecified
CPT/HCPCS: 36415; 80048; 80076; 83735; 85025; 96366; 96367; 96375; 96413; 96415; 96417; G0498; J1756; J2469; J9206; Q5107

== ENCOUNTER 2022-02-16 13:00 | Day surgery (SDC) | payer OTHER ==
[2022-02-16 17:39] VITALS: BP 125/83; PULSE 92; RESP 20; TEMP 99
[2022-02-16] MEDS ORDERED: PORTA CATH FLUSH 10 ML IVPUSH PRN (17:39)
== END 2022-02-16 16:00 | disposition home or self-care (01) ==
LOC: JONCCHEMO 13:00
PROVIDERS: ATTEND Internal Medicine Hematology & Oncology
DX: Z53.8 Procedure and treatment not carried out for other reasons (principal)
CPT/HCPCS: 96365

== ENCOUNTER 2022-03-06 10:45 | Day surgery (SDC) | payer OTHER ==
[~2022-03-06 10:45] MED LIST changes: +BEVACIZUMAB AWWB IVPB ONE; -BEVACIZUMAB-AWWB 400 MG, BEVACIZUMAB-AWWB 30 MG in SODIUM CHLORIDE 100 ML IVPB ONE; -DEXTROSE 5% IVPB ONE; -IRINOTECAN HCL 370 MG in DEXTROSE 5%-WATER - 500 ML IVPB ONE; -IRON SUCROSE INJECTION 200 MG in SODIUM CHLORIDE 100 ML IVPB ONE; -LEUCOVORIN IVPB ONE; +SODIUM CHLORIDE IVPB ONE; -WATER IVPB ONE
[2022-03-06] MEDS ORDERED: LEUCOVORIN INJECTION - 832 MG in DEXTROSE 5%-WATER - 250 ML IVPB ONE (11:00)
[2022-03-06] MEDS ORDERED: IRINOTECAN HCL 370 MG in DEXTROSE 5%-WATER - 500 ML IVPB ONE (11:30)
[2022-03-06 11:54] LABS: BASO % 1.1 % (0-2.0); HEMATOCRIT 40.2 % (35.4-49); HEMOGLOBIN 12.7 GM/dL (11.7-16.9); LYMPH % 30.8 % (8-40); MCH 26.4 pg (25.7-33.7); MCHC 31.7 g/dl (32.0-35.9); MEAN CELL VOLUME 83.2 fl (80-96); MEAN PLT VOLUME 6.9 fl (7.5-11.1); MONO % 14.1 % (3.8-10.2); PLATELET COUNT 578 10^3/uL (134-434); RBC 4.83 M/mm3 (4.00-5.60); RDW 19.2 % (11.9-15.9)
[2022-03-06 12:16] LABS: ALBUMIN 3.4 g/dl (3.4-5.0); BLOOD UREA NITROGEN 8.3 mg/dL (7-18); MAGNESIUM 2.2 mg/dL (1.8-2.4)
[2022-03-06] MEDS ORDERED: ALTEPLASE (CATHFLO) 2 MG/2 ML VIAL CVP ONE (12:16)
[2022-03-06 12:19] LABS: BILIRUBIN,DIRECT 0.1 mg/dL (0.0-0.2); CREATININE 0.8 mg/dL (0.55-1.3)
[2022-03-06 12:21] LABS: BILIRUBIN,TOTAL 0.3 mg/dL (0.2-1); TOT PROT 7.4 g/dl (6.4-8.2)
[2022-03-06] MEDS ORDERED: FLUOROURACIL 5,000 MG in SODIUM CHLORIDE 38 ML CP ONE (13:00)
[2022-03-06] MEDS ORDERED: FLUOROURACIL 2,500 MG/50 ML VIAL IVPUSH ONE (13:00)
[2022-03-06 18:24] VITALS: RESP 18; TEMP 98.3
[2022-03-06 18:39] VITALS: BP 142/85; PULSE 71
[2022-03-06] MEDS ORDERED: PORTA CATH FLUSH 10 ML IVPUSH PRN (18:39)
== END 2022-03-06 18:20 | disposition home or self-care (01) ==
LOC: JONCCHEMO 10:45
PROVIDERS: ATTEND Internal Medicine Hematology & Oncology
DX: Z51.11 Encounter for antineoplastic chemotherapy (principal); C18.2 Malignant neoplasm of ascending colon; C78.7 Secondary malignant neoplasm of liver and intrahepatic bile duct
CPT/HCPCS: 36415; 80048; 80076; 83735; 84156; 85025; 96375; 96411; 96413; 96417; G0498; J2469; J2997; J9206; Q5107

== ENCOUNTER 2022-03-08 15:09 | Day surgery (SDC) | payer OTHER ==
[2022-03-08 15:19] VITALS: RESP 20; TEMP 98.5
[2022-03-08] MEDS ORDERED: PORTA CATH FLUSH 10 ML IVPUSH PRN (15:23)
[2022-03-08 16:25] VITALS: BP 136/85; PULSE 71
== END 2022-03-08 16:25 | disposition home or self-care (01) ==
LOC: JONCCHEMO 15:09
PROVIDERS: ATTEND Internal Medicine Hematology & Oncology
DX: Z53.8 Procedure and treatment not carried out for other reasons (principal)

== ENCOUNTER 2022-04-04 11:33 | Day surgery (SDC) | payer OTHER ==
[~2022-04-04 11:33] MED LIST changes: +DEXTROSE 5% IVPB ONE; +FLUOROURACIL 2,500 MG/50 ML VIAL IVPUSH ONE; +FLUOROURACIL 4,975 MG in SODIUM CHLORIDE 1.7 ML CP ONE; +IRINOTECAN HCL 370 MG in DEXTROSE 5%-WATER - 500 ML IVPB ONE; +LEUCOVORIN IVPB ONE; +WATER IVPB ONE
[2022-04-04] MEDS ORDERED: FLUOROURACIL 2,500 MG/50 ML VIAL IVPUSH ONE (12:30)
[2022-04-04 12:33] LABS: BASO % 0.6 % (0-2.0); EOS % 4.7 % (0-4.5); HEMATOCRIT 42.1 % (35.4-49); LYMPH % 20.4 % (8-40); MCH 26.1 pg (25.7-33.7); MCHC 30.9 g/dl (32.0-35.9); MEAN CELL VOLUME 84.4 fl (80-96); MEAN PLT VOLUME 6.9 fl (7.5-11.1); MONO % 9.8 % (3.8-10.2); NEUT % 64.5 % (42.8-82.8); PLATELET COUNT 516 10^3/uL (134-434); RBC 4.99 M/mm3 (4.00-5.60); RDW 17.7 % (11.9-15.9); WHITE BLOOD COUNT 6.5 K/mm3 (4.0-10.0)
[2022-04-04] MEDS ORDERED: SODIUM CHLORIDE CP ONE (12:45)
[2022-04-04] MEDS ORDERED: FLUOROURACIL CP ONE (12:45)
[2022-04-04 12:52] LABS: CALCIUM 8.9 mg/dL (8.5-10.1)
[2022-04-04 12:53] LABS: ALBUMIN 3.5 g/dl (3.4-5.0); BLOOD UREA NITROGEN 7.5 mg/dL (7-18); MAGNESIUM 2.1 mg/dL (1.8-2.4)
[2022-04-04 12:55] LABS: BILIRUBIN,DIRECT 0.1 mg/dL (0.0-0.2)
[2022-04-04 12:56] LABS: CREATININE 0.7 mg/dL (0.55-1.3)
[2022-04-04 12:57] LABS: BILIRUBIN,TOTAL 0.5 mg/dL (0.2-1); TOT PROT 7.1 g/dl (6.4-8.2)
[2022-04-04 17:14] VITALS: BP 138/68; PULSE 88; RESP 20; TEMP 97.9
[2022-04-04] MEDS ORDERED: PORTA CATH FLUSH 10 ML IVPUSH PRN (17:14)
== END 2022-04-04 16:40 | disposition home or self-care (01) ==
LOC: JONCCHEMO 11:33
PROVIDERS: ATTEND Internal Medicine Hematology & Oncology
DX: C18.2 Malignant neoplasm of ascending colon (principal); C78.7 Secondary malignant neoplasm of liver and intrahepatic bile duct
CPT/HCPCS: 36415; 80048; 80076; 82378; 83735; 84156; 85025; 96366; 96367; 96375; 96411; 96413; 96415; 96417; G0498; J2469; J9206

== ENCOUNTER 2022-04-18 11:29 | Day surgery (SDC) | payer OTHER ==
[~2022-04-18 11:29] MED LIST changes: -BEVACIZUMAB AWWB IVPB ONE; -FLUOROURACIL 2,500 MG/50 ML VIAL IVPUSH ONE; -FLUOROURACIL 4,975 MG in SODIUM CHLORIDE 1.7 ML CP ONE; -SODIUM CHLORIDE IVPB ONE
[2022-04-18] MEDS ORDERED: SODIUM CHLORIDE IVPB ONE (12:00)
[2022-04-18] MEDS ORDERED: BEVACIZUMAB AWWB IVPB ONE (12:00)
[2022-04-18 12:06] LABS: BASO % 0.5 % (0-2.0); EOS % 6.4 % (0-4.5); HEMATOCRIT 41.8 % (35.4-49); HEMOGLOBIN 13.4 GM/dL (11.7-16.9); LYMPH % 21.4 % (8-40); MCH 27.2 pg (25.7-33.7); MEAN CELL VOLUME 84.8 fl (80-96); MEAN PLT VOLUME 6.6 fl (7.5-11.1); MONO % 9.6 % (3.8-10.2); NEUT % 62.1 % (42.8-82.8); PLATELET COUNT 479 10^3/uL (134-434); RBC 4.93 M/mm3 (4.00-5.60); RDW 16.7 % (11.9-15.9); WHITE BLOOD COUNT 4.8 K/mm3 (4.0-10.0)
[2022-04-18 12:27] LABS: ALBUMIN 3.6 g/dl (3.4-5.0); BLOOD UREA NITROGEN 7.5 mg/dL (7-18); CALCIUM 8.7 mg/dL (8.5-10.1); MAGNESIUM 2.4 mg/dL (1.8-2.4)
[2022-04-18 12:29] LABS: BILIRUBIN,DIRECT 0.2 mg/dL (0.0-0.2); CREATININE 0.8 mg/dL (0.55-1.3)
[2022-04-18] MEDS ORDERED: FLUOROURACIL 5,000 MG/100 ML VIAL IVPUSH ONE (12:30)
[2022-04-18 12:31] LABS: BILIRUBIN,TOTAL 0.6 mg/dL (0.2-1); TOT PROT 7.6 g/dl (6.4-8.2)
[2022-04-18] MEDS ORDERED: SODIUM CHLORIDE CP ONE (13:00)
[2022-04-18] MEDS ORDERED: FLUOROURACIL CP ONE (13:00)
[2022-04-18 17:03] VITALS: RESP 20; TEMP 98.1
[2022-04-18] MEDS ORDERED: PORTA CATH FLUSH 10 ML IVPUSH PRN (17:11)
[2022-04-18 17:33] VITALS: BP 141/82; PULSE 78
== END 2022-04-18 17:25 | disposition home or self-care (01) ==
LOC: JONCCHEMO 11:29
PROVIDERS: ATTEND Internal Medicine Hematology & Oncology
DX: Z51.11 Encounter for antineoplastic chemotherapy (principal); C18.2 Malignant neoplasm of ascending colon; C78.7 Secondary malignant neoplasm of liver and intrahepatic bile duct
CPT/HCPCS: 36415; 80048; 80076; 82378; 83735; 84156; 85025; 96365; 96366; 96375; 96411; 96413; 96417; G0498; J2469; J9206; Q5107

== ENCOUNTER 2022-04-20 15:12 | Day surgery (SDC) | payer OTHER ==
[~2022-04-20 15:12] MED LIST changes: -ATROPINE SO4 0.4 MG/1 ML VIAL IVPUSH ONE; -DEXAMETHASONE SODIUM PHOSPHATE 10 MG in SODIUM CHLORIDE 50 ML IVPB ONE; -DEXTROSE 5% IVPB ONE; -IRINOTECAN HCL 370 MG in DEXTROSE 5%-WATER - 500 ML IVPB ONE; -LEUCOVORIN IVPB ONE; -PALONOSETRON HCL 0.25 MG/5 ML VIAL IVPUSH ONE; +PORTA CATH FLUSH 10 ML IVPUSH PRN; -SODIUM CHLORIDE 250 ML IV ONE; -WATER IVPB ONE
[2022-04-20 17:24] VITALS: BP 121/81; PULSE 100; RESP 20; TEMP 98.4
== END 2022-04-20 15:30 | disposition home or self-care (01) ==
LOC: JONCCHEMO 15:12
PROVIDERS: ATTEND Internal Medicine Hematology & Oncology
DX: Z53.8 Procedure and treatment not carried out for other reasons (principal)

== ENCOUNTER 2022-05-08 09:53 | Day surgery (SDC) | payer OTHER ==
[~2022-05-08 09:53] MED LIST changes: +ATROPINE SO4 0.4 MG/1 ML VIAL IVPUSH ONE; +BEVACIZUMAB AWWB IVPB ONE; +DEXAMETHASONE SODIUM PHOSPHATE 10 MG in SODIUM CHLORIDE 50 ML IVPB ONE; +DEXTROSE 5% IVPB ONE; +FLUOROURACIL 5,000 MG/100 ML VIAL IVPUSH ONE; +FLUOROURACIL CP ONE; +IRINOTECAN HCL 370 MG in DEXTROSE 5%-WATER - 500 ML IVPB ONE; +LEUCOVORIN CALCIUM IVPB ONE; +PALONOSETRON HCL 0.25 MG/5 ML VIAL IVPUSH ONE; -PORTA CATH FLUSH 10 ML IVPUSH PRN; +SODIUM CHLORIDE 250 ML IV ONE; +SODIUM CHLORIDE CP ONE; +SODIUM CHLORIDE IVPB ONE; +WATER IVPB ONE
[2022-05-08] MEDS ORDERED: PALONOSETRON HCL 0.25 MG/5 ML VIAL IVPUSH ONE (10:00)
[2022-05-08] MEDS ORDERED: DEXAMETHASONE SODIUM PHOSPHATE 10 MG in SODIUM CHLORIDE 50 ML IVPB ONE (10:00)
[2022-05-08] MEDS ORDERED: SODIUM CHLORIDE 250 ML IV ONE (10:00)
[2022-05-08] MEDS ORDERED: ATROPINE SO4 0.4 MG/1 ML VIAL IVPUSH ONE (10:00)
[2022-05-08 10:29] LABS: BASO % 0.6 % (0-2.0); EOS % 5.5 % (0-4.5); HEMATOCRIT 42.5 % (35.4-49); HEMOGLOBIN 13.3 GM/dL (11.7-16.9); LYMPH % 29.1 % (8-40); MCH 26.2 pg (25.7-33.7); MCHC 31.3 g/dl (32.0-35.9); MEAN CELL VOLUME 83.7 fl (80-96); MEAN PLT VOLUME 6.6 fl (7.5-11.1); MONO % 12.6 % (3.8-10.2); NEUT % 52.2 % (42.8-82.8); PLATELET COUNT 527 10^3/uL (134-434); RBC 5.08 M/mm3 (4.00-5.60); RDW 16.7 % (11.9-15.9); WHITE BLOOD COUNT 5.2 K/mm3 (4.0-10.0)
[2022-05-08] MEDS ORDERED: BEVACIZUMAB AWWB IVPB ONE (10:30)
[2022-05-08] MEDS ORDERED: SODIUM CHLORIDE IVPB ONE (10:30)
[2022-05-08] MEDS ORDERED: LEUCOVORIN CALCIUM IVPB ONE (11:00)
[2022-05-08] MEDS ORDERED: WATER IVPB ONE (11:00)
[2022-05-08] MEDS ORDERED: DEXTROSE 5% IVPB ONE (11:00)
[2022-05-08 11:10] LABS: ALBUMIN 3.5 g/dl (3.4-5.0); BLOOD UREA NITROGEN 8.4 mg/dL (7-18); CALCIUM 8.3 mg/dL (8.5-10.1); MAGNESIUM 1.8 mg/dL (1.8-2.4)
[2022-05-08 11:12] LABS: BILIRUBIN,DIRECT 0.2 mg/dL (0.0-0.2); CREATININE 0.8 mg/dL (0.55-1.3)
[2022-05-08 11:14] LABS: BILIRUBIN,TOTAL 0.6 mg/dL (0.2-1)
[2022-05-08 11:15] LABS: TOT PROT 7.2 g/dl (6.4-8.2)
[2022-05-08] MEDS ORDERED: IRINOTECAN HCL 370 MG in DEXTROSE 5%-WATER - 500 ML IVPB ONE (11:30)
[2022-05-08] MEDS ORDERED: SODIUM CHLORIDE CP ONE (13:00)
[2022-05-08] MEDS ORDERED: FLUOROURACIL 5,000 MG/100 ML VIAL IVPUSH ONE (13:00)
[2022-05-08] MEDS ORDERED: FLUOROURACIL CP ONE (13:00)
[2022-05-08 17:49] VITALS: PULSE 86; RESP 20; TEMP 98.2
[2022-05-09 08:43] VITALS: BP 145/87
== END 2022-05-08 16:00 | disposition home or self-care (01) ==
LOC: JONCCHEMO 09:53
PROVIDERS: ATTEND Internal Medicine Hematology & Oncology
DX: Z51.11 Encounter for antineoplastic chemotherapy (principal); C18.2 Malignant neoplasm of ascending colon; C78.7 Secondary malignant neoplasm of liver and intrahepatic bile duct
CPT/HCPCS: 36415; 80048; 80076; 83735; 84156; 85025; 96366; 96367; 96375; 96411; 96413; 96417; G0498; J2469; J9206; Q5107

== ENCOUNTER 2022-05-10 15:24 | Day surgery (SDC) | payer OTHER ==
[2022-05-10 15:45] VITALS: BP 132/85; PULSE 83; RESP 18; TEMP 98.4
[2022-05-10] MEDS ORDERED: PORTA CATH FLUSH 10 ML IVPUSH PRN (16:07)
== END 2022-05-10 15:45 | disposition home or self-care (01) ==
LOC: JONCCHEMO 15:24
PROVIDERS: ATTEND Internal Medicine Hematology & Oncology
DX: Z53.8 Procedure and treatment not carried out for other reasons (principal)

== ENCOUNTER 2022-05-22 10:35 | Day surgery (SDC) | payer OTHER ==
[~2022-05-22 10:35] MED LIST changes: -FLUOROURACIL 5,000 MG/100 ML VIAL IVPUSH ONE; -FLUOROURACIL CP ONE; -SODIUM CHLORIDE CP ONE
[2022-05-22 11:55] LABS: BASO % 0.5 % (0-2.0); HEMATOCRIT 38.5 % (35.4-49); HEMOGLOBIN 12.6 GM/dL (11.7-16.9); LYMPH % 22.1 % (8-40); MCH 27.5 pg (25.7-33.7); MCHC 32.8 g/dl (32.0-35.9); MEAN CELL VOLUME 83.8 fl (80-96); MEAN PLT VOLUME 6.7 fl (7.5-11.1); MONO % 10.1 % (3.8-10.2); NEUT % 61.3 % (42.8-82.8); PLATELET COUNT 419 10^3/uL (134-434); RBC 4.59 M/mm3 (4.00-5.60); RDW 16.4 % (11.9-15.9); WHITE BLOOD COUNT 5.2 K/mm3 (4.0-10.0)
[2022-05-22 12:20] LABS: ALBUMIN 3.5 g/dl (3.4-5.0); BLOOD UREA NITROGEN 12.4 mg/dL (7-18); CALCIUM 8.8 mg/dL (8.5-10.1); MAGNESIUM 2.1 mg/dL (1.8-2.4)
[2022-05-22 12:22] LABS: BILIRUBIN,DIRECT 0.2 mg/dL (0.0-0.2)
[2022-05-22 12:23] LABS: CREATININE 0.8 mg/dL (0.55-1.3); TOT PROT 7.2 g/dl (6.4-8.2)
[2022-05-22 12:24] LABS: BILIRUBIN,TOTAL 0.5 mg/dL (0.2-1)
[2022-05-22] MEDS ORDERED: FLUOROURACIL 5,000 MG/100 ML VIAL IVPUSH ONE (12:30)
[2022-05-22] MEDS ORDERED: FLUOROURACIL CP ONE (12:45)
[2022-05-22] MEDS ORDERED: SODIUM CHLORIDE CP ONE (12:45)
[2022-05-22] MEDS ORDERED: FLUOROURACIL 4,975 MG in SODIUM CHLORIDE 1.7 ML CP ONE (12:45)
[2022-05-22 17:35] VITALS: BP 154/93; PULSE 77; RESP 20; TEMP 98.2
[2022-05-22] MEDS ORDERED: PORTA CATH FLUSH 10 ML IVPUSH PRN (17:35)
== END 2022-05-22 18:00 | disposition home or self-care (01) ==
LOC: JONCCHEMO 10:35
PROVIDERS: ATTEND Internal Medicine Hematology & Oncology
DX: Z51.11 Encounter for antineoplastic chemotherapy (principal); C18.2 Malignant neoplasm of ascending colon; C78.7 Secondary malignant neoplasm of liver and intrahepatic bile duct
CPT/HCPCS: 36415; 80048; 80076; 83735; 85025; 96366; 96367; 96375; 96411; 96413; 96415; 96417; G0498; J2469; J9206; Q5107

== ENCOUNTER 2022-05-24 15:56 | Day surgery (SDC) | payer OTHER ==
[2022-05-24 16:03] VITALS: RESP 19
[2022-05-24 16:04] VITALS: BP 139/85; PULSE 104; TEMP 98.1
[2022-05-24] MEDS ORDERED: PORTA CATH FLUSH 10 ML IVPUSH PRN (17:07)
== END 2022-05-24 16:00 | disposition home or self-care (01) ==
LOC: JONCCHEMO 15:56 → J7W 15:57 → JONCCHEMO 16:00
PROVIDERS: ATTEND Internal Medicine Hematology & Oncology
DX: Z53.8 Procedure and treatment not carried out for other reasons (principal)

== ENCOUNTER 2022-06-19 09:44 | Day surgery (SDC) | payer OTHER ==
[~2022-06-19 09:44] MED LIST changes: +FLUOROURACIL 5,000 MG/100 ML VIAL IVPUSH ONE; +FLUOROURACIL 5,025 MG in SODIUM CHLORIDE 0.7 ML CP ONE; -IRINOTECAN HCL 370 MG in DEXTROSE 5%-WATER - 500 ML IVPB ONE; +IRINOTECAN HCL 380 MG in DEXTROSE 5%-WATER - 500 ML IVPB ONE
[2022-06-19] MEDS ORDERED: ATROPINE SO4 0.4 MG/1 ML VIAL IVPUSH ONE (10:00)
[2022-06-19] MEDS ORDERED: DEXAMETHASONE SODIUM PHOSPHATE 10 MG in SODIUM CHLORIDE 50 ML IVPB ONE (10:00)
[2022-06-19] MEDS ORDERED: PALONOSETRON HCL 0.25 MG/5 ML VIAL IVPUSH ONE (10:00)
[2022-06-19] MEDS ORDERED: BEVACIZUMAB AWWB IVPB ONE (10:30)
[2022-06-19] MEDS ORDERED: SODIUM CHLORIDE IVPB ONE (10:30)
[2022-06-19] MEDS ORDERED: WATER IVPB ONE (11:00)
[2022-06-19] MEDS ORDERED: DEXTROSE 5% IVPB ONE (11:00)
[2022-06-19] MEDS ORDERED: LEUCOVORIN CALCIUM IVPB ONE (11:00)
[2022-06-19 11:01] LABS: BASO % 0.6 % (0-2.0); EOS % 5.3 % (0-4.5); HEMATOCRIT 42.2 % (35.4-49); HEMOGLOBIN 13.9 GM/dL (11.7-16.9); LYMPH % 21.2 % (8-40); MCHC 32.8 g/dl (32.0-35.9); MEAN CELL VOLUME 85.4 fl (80-96); MEAN PLT VOLUME 6.8 fl (7.5-11.1); MONO % 10.9 % (3.8-10.2); PLATELET COUNT 453 10^3/uL (134-434); RBC 4.95 M/mm3 (4.00-5.60); RDW 16.3 % (11.9-15.9); WHITE BLOOD COUNT 6.8 K/mm3 (4.0-10.0)
[2022-06-19 11:30] LABS: CALCIUM 9.5 mg/dL (8.5-10.1)
[2022-06-19] MEDS ORDERED: IRINOTECAN HCL 380 MG in DEXTROSE 5%-WATER - 500 ML IVPB ONE (11:30)
[2022-06-19 11:31] LABS: ALBUMIN 3.5 g/dl (3.4-5.0); BLOOD UREA NITROGEN 7.4 mg/dL (7-18)
[2022-06-19 11:33] LABS: BILIRUBIN,DIRECT 0.2 mg/dL (0.0-0.2)
[2022-06-19 11:34] LABS: CREATININE 0.8 mg/dL (0.55-1.3)
[2022-06-19 11:35] LABS: BILIRUBIN,TOTAL 0.5 mg/dL (0.2-1)
[2022-06-19 11:36] LABS: TOT PROT 7.7 g/dl (6.4-8.2)
[2022-06-19] MEDS ORDERED: FLUOROURACIL 5,000 MG/100 ML VIAL IVPUSH ONE (13:00)
[2022-06-19] MEDS ORDERED: FLUOROURACIL 5,025 MG in SODIUM CHLORIDE 37.5 ML CP ONE (13:00)
[2022-06-19 16:51] VITALS: BP 138/87; PULSE 89; RESP 19; TEMP 98.7
== END 2022-06-19 15:55 | disposition home or self-care (01) ==
LOC: JONCCHEMO 09:44
PROVIDERS: ATTEND Internal Medicine Hematology & Oncology
DX: Z51.11 Encounter for antineoplastic chemotherapy (principal); C18.2 Malignant neoplasm of ascending colon; C78.7 Secondary malignant neoplasm of liver and intrahepatic bile duct
CPT/HCPCS: 36415; 80048; 80076; 83735; 84156; 85025; 96366; 96367; 96375; 96413; 96417; G0498; J2469; J9206; Q5107

== ENCOUNTER 2022-06-21 14:54 | Day surgery (SDC) | payer OTHER ==
[~2022-06-21 14:54] MED LIST changes: -ATROPINE SO4 0.4 MG/1 ML VIAL IVPUSH ONE; -BEVACIZUMAB AWWB IVPB ONE; -DEXAMETHASONE SODIUM PHOSPHATE 10 MG in SODIUM CHLORIDE 50 ML IVPB ONE; -DEXTROSE 5% IVPB ONE; -FLUOROURACIL 5,000 MG/100 ML VIAL IVPUSH ONE; -FLUOROURACIL 5,025 MG in SODIUM CHLORIDE 0.7 ML CP ONE; -IRINOTECAN HCL 380 MG in DEXTROSE 5%-WATER - 500 ML IVPB ONE; -LEUCOVORIN CALCIUM IVPB ONE; -PALONOSETRON HCL 0.25 MG/5 ML VIAL IVPUSH ONE; +SODIUM CHLORIDE 0.9%/KCL 20 MEQ/1,000 ML INFUS.BAG IV SCH; -SODIUM CHLORIDE 250 ML IV ONE; -SODIUM CHLORIDE IVPB ONE; -WATER IVPB ONE
[2022-06-21 17:58] VITALS: BP 127/81; PULSE 101; RESP 20; TEMP 98.4
[2022-06-21] MEDS ORDERED: PORTA CATH FLUSH 10 ML IVPUSH PRN (17:58)
== END 2022-06-21 17:30 | disposition home or self-care (01) ==
LOC: JONCCHEMO 14:54
PROVIDERS: ATTEND Internal Medicine Hematology & Oncology
PROC: 3E0437Z Introduction of Electrolytic and Water Balance Substance into Central Vein, Percutaneous Approach (ICD-10-PCS; principal; 2022-06-21)
DX: C18.2 Malignant neoplasm of ascending colon (principal); C78.7 Secondary malignant neoplasm of liver and intrahepatic bile duct; Z76.89 Persons encountering health services in other specified circumstances
CPT/HCPCS: 96360; 96361

== ENCOUNTER 2022-08-21 04:07 | Day surgery (SDC) | payer OTHER ==
[2022-08-21 13:39] VITALS: BMI 28.2
[2022-08-21] MEDS ORDERED: BUPIVACAINE HCL/PF 0.25% (2.5MG/ML) 10 ML VIAL ONE (16:38)
[2022-08-21] MEDS ORDERED: MIDAZOLAM HCL 2 MG/2 ML SINGLE DOSE VIAL ONE (17:29)
[2022-08-21] MEDS ORDERED: PROPOFOL 40 ML ONE (17:29)
[2022-08-21] MEDS ORDERED: LIDOCAINE HCL/PF 2% SDV 5ML VIAL ONE (17:29)
[2022-08-21] MEDS ORDERED: SUCCINYLCHOLINE CHLORIDE 200 MG/10 ML SYRINGE ONE (17:41)
[2022-08-21] MEDS ORDERED: ROCURONIUM BROMIDE 50 MG/5 ML SYRINGE ONE ×2 (17:51→19:08)
[2022-08-21] MEDS ORDERED: BUPIVACAINE HCL/PF 0.25% (2.5MG/ML) 10 ML VIAL IJ ONE (18:09)
[2022-08-21] MEDS ORDERED: SUGAMMADEX SODIUM 200 MG/2 ML VIAL ONE (18:21)
[2022-08-21] MEDS ORDERED: ONDANSETRON 4 MG/2 ML VIAL ONE (18:58)
[2022-08-21] MEDS ORDERED: ACETAMINOPHEN 1000 MG/100 ML BAG IVPB ONE (20:26)
[2022-08-21] MEDS ORDERED: ONDANSETRON 4 MG/2 ML VIAL IVPUSH PRN (20:26)
[2022-08-21] MEDS ORDERED: ACETAMINOPHEN INJECTION 100 ML IVPB ONE (20:40)
[2022-08-21] MEDS: LACTATED RINGERS SOLUTION 1,000 ML IV SCH ×2 (20:45→22:04)
[2022-08-21] MEDS ORDERED: oxyCODONE HCL 5 MG TABLET PO PRN (23:45)
[2022-08-21] MEDS ORDERED: ACETAMINOPHEN 325 MG TABLET (FP) PO PRN (23:45)
[2022-08-22 09:42] VITALS: BP 138/73; PULSE 98; RESP 18; TEMP 98.8
== END 2022-08-22 12:23 | disposition home or self-care (01) ==
LOC: JASU-SURG 04:07 → JASUSAT 04:07 → J8W 21:53 → JASUSAT 08-22 12:23
PROVIDERS: ATTEND Surgery
PROC: 8E0W4CZ Robotic Assisted Procedure of Trunk Region, Percutaneous Endoscopic Approach (ICD-10-PCS; 2022-08-21)
PROC: 0YU54JZ Supplement Right Inguinal Region with Synthetic Substitute, Percutaneous Endoscopic Approach (ICD-10-PCS; principal; 2022-08-21 16:00)
DX: K40.90 Unilateral inguinal hernia, without obstruction or gangrene, not specified as recurrent (principal); C78.6 Secondary malignant neoplasm of retroperitoneum and peritoneum
CPT/HCPCS: 49650; S2900; 94010; 94760; C1781

== ENCOUNTER 2022-10-09 11:49 | Day surgery (SDC) | payer OTHER ==
[~2022-10-09 11:49] MED LIST changes: +ATROPINE SO4 0.4 MG/1 ML VIAL IVPUSH ONE; +BEVACIZUMAB AWWB IVPB ONE; +DEXAMETHASONE SODIUM PHOSPHATE 10 MG in SODIUM CHLORIDE 50 ML IVPB ONE; +DEXTROSE 5% IVPB ONE; +IRINOTECAN HCL 380 MG in DEXTROSE 5%-WATER - 500 ML IVPB ONE; +LEUCOVORIN CALCIUM IVPB ONE; +PALONOSETRON HCL 0.25 MG/5 ML VIAL IVPUSH ONE; -SODIUM CHLORIDE 0.9%/KCL 20 MEQ/1,000 ML INFUS.BAG IV SCH; +SODIUM CHLORIDE 250 ML IV ONE; +SODIUM CHLORIDE IVPB ONE; +WATER IVPB ONE
[2022-10-09 12:13] LABS: BASO % 0.9 % (0-2.0); EOS % 7.1 % (0-4.5); HEMATOCRIT 40.9 % (35.4-49); HEMOGLOBIN 12.9 GM/dL (11.7-16.9); LYMPH % 15.5 % (8-40); MCH 26.9 pg (25.7-33.7); MCHC 31.6 g/dl (32.0-35.9); MEAN PLT VOLUME 6.7 fl (7.5-11.1); MONO % 9.3 % (3.8-10.2); NEUT % 67.2 % (42.8-82.8); PLATELET COUNT 493 10^3/uL (134-434); RBC 4.81 M/mm3 (4.00-5.60); RDW 14.6 % (11.9-15.9); WHITE BLOOD COUNT 5.7 K/mm3 (4.0-10.0)
[2022-10-09 12:32] LABS: ALBUMIN 3.6 g/dl (3.4-5.0); BLOOD UREA NITROGEN 9.6 mg/dL (7-18)
[2022-10-09 12:34] LABS: BILIRUBIN,DIRECT 0.2 mg/dL (0.0-0.2); CREATININE 0.8 mg/dL (0.55-1.3)
[2022-10-09 12:36] LABS: BILIRUBIN,TOTAL 0.6 mg/dL (0.2-1); TOT PROT 7.5 g/dl (6.4-8.2)
[2022-10-09] MEDS ORDERED: FLUOROURACIL 2,500 MG/50 ML VIAL IVPUSH ONE (13:00)
[2022-10-09] MEDS ORDERED: FLUOROURACIL 5,025 MG in SODIUM CHLORIDE 37.5 ML CP ONE (13:00)
[2022-10-09 17:13] VITALS: TEMP 98.5
[2022-10-09 17:23] VITALS: BP 144/91; PULSE 79; RESP 20
[2022-10-09] MEDS ORDERED: PORTA CATH FLUSH 10 ML IVPUSH PRN (17:24)
== END 2022-10-09 16:30 | disposition home or self-care (01) ==
LOC: JONCCHEMO 11:49 → J7W 11:57 → JONCCHEMO 16:30
PROVIDERS: ATTEND Internal Medicine Hematology & Oncology
DX: Z51.11 Encounter for antineoplastic chemotherapy (principal); C18.6 Malignant neoplasm of descending colon; C78.7 Secondary malignant neoplasm of liver and intrahepatic bile duct
CPT/HCPCS: 36415; 80048; 80076; 84156; 85025; 96366; 96367; 96375; 96411; 96413; 96417; G0498; J2469; J9206; Q5107

== ENCOUNTER 2022-10-11 14:50 | Day surgery (SDC) | payer OTHER ==
[~2022-10-11 14:50] MED LIST changes: -ATROPINE SO4 0.4 MG/1 ML VIAL IVPUSH ONE; -BEVACIZUMAB AWWB IVPB ONE; +D5-NS + 20 MEQ KCL - 20 MEQ/1,000 ML INFUS.BAG IV SCH; -DEXAMETHASONE SODIUM PHOSPHATE 10 MG in SODIUM CHLORIDE 50 ML IVPB ONE; -DEXTROSE 5% IVPB ONE; -IRINOTECAN HCL 380 MG in DEXTROSE 5%-WATER - 500 ML IVPB ONE; -LEUCOVORIN CALCIUM IVPB ONE; -PALONOSETRON HCL 0.25 MG/5 ML VIAL IVPUSH ONE; +PROCHLORPERAZINE INJECTION 10 MG in SODIUM CHLORIDE 50 ML IVPB ONE; -SODIUM CHLORIDE 250 ML IV ONE; -SODIUM CHLORIDE IVPB ONE; -WATER IVPB ONE
[2022-10-11 17:14] VITALS: RESP 20; TEMP 98.6
[2022-10-11 17:19] VITALS: PULSE 102
[2022-10-11 18:09] VITALS: BP 129/82
== END 2022-10-11 17:20 | disposition home or self-care (01) ==
LOC: JONCCHEMO 14:50 → J7W 14:50 → JONCCHEMO 17:20
PROVIDERS: ATTEND Internal Medicine Hematology & Oncology
PROC: 3E043GC Introduction of Other Therapeutic Substance into Central Vein, Percutaneous Approach (ICD-10-PCS; principal; 2022-10-11)
DX: C18.6 Malignant neoplasm of descending colon (principal); C78.7 Secondary malignant neoplasm of liver and intrahepatic bile duct; Z76.89 Persons encountering health services in other specified circumstances
CPT/HCPCS: 96374

== ENCOUNTER 2022-10-23 09:56 | Day surgery (SDC) | payer OTHER ==
[~2022-10-23 09:56] MED LIST changes: -D5-NS + 20 MEQ KCL - 20 MEQ/1,000 ML INFUS.BAG IV SCH; -PROCHLORPERAZINE INJECTION 10 MG in SODIUM CHLORIDE 50 ML IVPB ONE; +SODIUM CHLORIDE 250 ML IV ONE
[2022-10-23] MEDS ORDERED: PALONOSETRON HCL 0.25 MG/5 ML VIAL IVPUSH ONE (10:00)
[2022-10-23] MEDS ORDERED: ATROPINE SO4 0.4 MG/1 ML VIAL IVPUSH ONE (10:00)
[2022-10-23] MEDS ORDERED: FOSAPREPITANT DIMEGLUMINE 150 MG in SODIUM CHLORIDE 145 ML IVPB ONE (10:00)
[2022-10-23] MEDS ORDERED: DEXAMETHASONE SODIUM PHOSPHATE 10 MG in SODIUM CHLORIDE 50 ML IVPB ONE (10:00)
[2022-10-23] MEDS ORDERED: SODIUM CHLORIDE IVPB ONE (10:30)
[2022-10-23] MEDS ORDERED: BEVACIZUMAB AWWB IVPB ONE (10:30)
[2022-10-23 10:44] LABS: BASO % 0.5 % (0-2.0); EOS % 5.1 % (0-4.5); HEMATOCRIT 34.4 % (35.4-49); HEMOGLOBIN 11.4 GM/dL (11.7-16.9); LYMPH % 19.7 % (8-40); MCH 27.5 pg (25.7-33.7); MCHC 33.1 g/dl (32.0-35.9); MEAN CELL VOLUME 82.9 fl (80-96); MEAN PLT VOLUME 6.4 fl (7.5-11.1); MONO % 10.4 % (3.8-10.2); NEUT % 64.3 % (42.8-82.8); PLATELET COUNT 437 10^3/uL (134-434); RBC 4.15 M/mm3 (4.00-5.60); RDW 14.9 % (11.9-15.9); WHITE BLOOD COUNT 4.9 K/mm3 (4.0-10.0)
[2022-10-23] MEDS ORDERED: WATER IVPB ONE (11:00)
[2022-10-23] MEDS ORDERED: LEUCOVORIN CALCIUM IVPB ONE (11:00)
[2022-10-23] MEDS ORDERED: DEXTROSE 5% IVPB ONE (11:00)
[2022-10-23 11:05] LABS: CALCIUM 8.5 mg/dL (8.5-10.1); POTASSIUM 3.9 mmol/L (3.5-5.1)
[2022-10-23 11:06] LABS: ALBUMIN 3.4 g/dl (3.4-5.0)
[2022-10-23 11:09] LABS: BILIRUBIN,DIRECT 0.2 mg/dL (0.0-0.2); CREATININE 0.7 mg/dL (0.55-1.3)
[2022-10-23 11:11] LABS: BILIRUBIN,TOTAL 0.6 mg/dL (0.2-1); TOT PROT 7.3 g/dl (6.4-8.2)
[2022-10-23 11:20] LABS: BLOOD UREA NITROGEN 7.6 mg/dL (7-18)
[2022-10-23] MEDS ORDERED: IRINOTECAN HCL 370 MG in DEXTROSE 5%-WATER - 500 ML IVPB ONE (11:30)
[2022-10-23] MEDS ORDERED: SODIUM CHLORIDE CP ONE (13:00)
[2022-10-23] MEDS ORDERED: FLUOROURACIL CP ONE (13:00)
[2022-10-23] MEDS ORDERED: FLUOROURACIL 2,500 MG/50 ML VIAL IVPUSH ONE (13:00)
[2022-10-23 17:23] VITALS: PULSE 85; TEMP 98.4
[2022-10-23 17:30] VITALS: BP 152/82; RESP 18
[2022-10-23] MEDS ORDERED: PORTA CATH FLUSH 10 ML IVPUSH PRN (17:30)
== END 2022-10-23 16:30 | disposition home or self-care (01) ==
LOC: JONCCHEMO 09:56 → J7W 09:58 → JONCCHEMO 16:30
PROVIDERS: ATTEND Internal Medicine Hematology & Oncology
DX: Z51.11 Encounter for antineoplastic chemotherapy (principal); C18.6 Malignant neoplasm of descending colon; C18.7 Malignant neoplasm of sigmoid colon
CPT/HCPCS: 36415; 80048; 80076; 85025; 96366; 96367; 96375; 96411; 96413; 96417; G0498; J1453; J2469; J9206; Q5107

== ENCOUNTER 2022-10-25 12:23 | Day surgery (SDC) | payer OTHER ==
[~2022-10-25 12:23] MED LIST changes: +D5-NS + 20 MEQ KCL - 20 MEQ/1,000 ML INFUS.BAG IV ONE; +PROCHLORPERAZINE INJECTION 10 MG in SODIUM CHLORIDE 50 ML IVPB ONE; -SODIUM CHLORIDE 250 ML IV ONE
[2022-10-25 16:35] VITALS: BP 125/80; PULSE 85; RESP 20; TEMP 98.3
[2022-10-25] MEDS ORDERED: PORTA CATH FLUSH 10 ML IVPUSH PRN (16:35)
== END 2022-10-25 12:45 | disposition home or self-care (01) ==
LOC: JONCCHEMO 12:23 → J7W 12:24 → JONCCHEMO 12:45
PROVIDERS: ATTEND Internal Medicine Hematology & Oncology
PROC: 3E043GC Introduction of Other Therapeutic Substance into Central Vein, Percutaneous Approach (ICD-10-PCS; principal; 2022-10-25)
DX: C18.6 Malignant neoplasm of descending colon (principal); C18.7 Malignant neoplasm of sigmoid colon; Z76.89 Persons encountering health services in other specified circumstances
CPT/HCPCS: 96361; 96365

== ENCOUNTER 2022-11-06 09:04 | Day surgery (SDC) | payer OTHER ==
[2022-11-06] MEDS ORDERED: FOSAPREPITANT DIMEGLUMINE 150 MG in SODIUM CHLORIDE 145 ML IVPB ONE (09:30)
[2022-11-06] MEDS ORDERED: DEXAMETHASONE SODIUM PHOSPHATE 10 MG in SODIUM CHLORIDE 50 ML IVPB ONE (09:30)
[2022-11-06] MEDS ORDERED: ATROPINE SO4 0.4 MG/1 ML VIAL IVPUSH ONE (09:30)
[2022-11-06] MEDS ORDERED: BEVACIZUMAB-AWWB 400 MG, BEVACIZUMAB-AWWB 30 MG in SODIUM CHLORIDE 100 ML IVPB ONE (10:00)
[2022-11-06] MEDS: SODIUM CHLORIDE 250 ML IV ONE ×3 (10:05→10:07)
[2022-11-06] MEDS ORDERED: WATER IVPB ONE (10:30)
[2022-11-06] MEDS ORDERED: DEXTROSE 5% IVPB ONE (10:30)
[2022-11-06] MEDS ORDERED: LEUCOVORIN CALCIUM IVPB ONE (10:30)
[2022-11-06] MEDS ORDERED: IRINOTECAN HCL 360 MG in DEXTROSE 5%-WATER - 500 ML IVPB ONE (10:30)
[2022-11-06 10:35] LABS: POTASSIUM 3.8 mmol/L (3.5-5.1)
[2022-11-06 10:37] LABS: CALCIUM 8.6 mg/dL (8.5-10.1)
[2022-11-06 10:38] LABS: ALBUMIN 3.3 g/dl (3.4-5.0); BASO % 0.4 % (0-2.0); BLOOD UREA NITROGEN 8.4 mg/dL (7-18); EOS % 5.3 % (0-4.5); HEMATOCRIT 39.3 % (35.4-49); HEMOGLOBIN 12.6 GM/dL (11.7-16.9); LYMPH % 22.2 % (8-40); MCH 27.6 pg (25.7-33.7); MCHC 32.1 g/dl (32.0-35.9); MEAN PLT VOLUME 7.1 fl (7.5-11.1); MONO % 10.8 % (3.8-10.2); NEUT % 61.3 % (42.8-82.8); PLATELET COUNT 399 10^3/uL (134-434); RBC 4.57 M/mm3 (4.00-5.60)
[2022-11-06 10:41] LABS: BILIRUBIN,DIRECT 0.2 mg/dL (0.0-0.2); CREATININE 0.7 mg/dL (0.55-1.3)
[2022-11-06 10:43] LABS: BILIRUBIN,TOTAL 0.7 mg/dL (0.2-1)
[2022-11-06 10:44] LABS: TOT PROT 7.1 g/dl (6.4-8.2)
[2022-11-06] MEDS: PALONOSETRON HCL 0.25 MG/5 ML VIAL IVPUSH ONE ×2 (11:39→13:19)
[2022-11-06] MEDS ORDERED: FLUOROURACIL 2,500 MG/50 ML VIAL IVPUSH ONE (12:30)
[2022-11-06] MEDS ORDERED: SODIUM CHLORIDE CP ONE (12:45)
[2022-11-06] MEDS ORDERED: FLUOROURACIL CP ONE (12:45)
[2022-11-06] MEDS ORDERED: LOPERAMIDE HCL 2 MG CAPSULE PO ONE (15:36)
[2022-11-06 18:18] VITALS: BP 139/90; PULSE 81; RESP 20; TEMP 98.3
[2022-11-06] MEDS ORDERED: PORTA CATH FLUSH 10 ML IVPUSH PRN (18:18)
== END 2022-11-06 15:45 | disposition home or self-care (01) ==
LOC: JONCCHEMO 09:04 → J7W 09:12 → JONCCHEMO 15:45
PROVIDERS: ATTEND Internal Medicine Hematology & Oncology
DX: Z51.11 Encounter for antineoplastic chemotherapy (principal); C18.6 Malignant neoplasm of descending colon; C18.7 Malignant neoplasm of sigmoid colon
CPT/HCPCS: 36415; 80048; 80076; 83735; 84153; 84156; 85025; 96366; 96367; 96375; 96411; 96413; 96417; G0498; J1453; J2469; J9206; Q5107

== ENCOUNTER 2022-11-08 15:07 | Day surgery (SDC) | payer OTHER ==
[2022-11-08 17:48] VITALS: BP 118/81; PULSE 81; RESP 20; TEMP 98.7
[2022-11-08] MEDS ORDERED: PORTA CATH FLUSH 10 ML IVPUSH PRN (17:48)
== END 2022-11-08 17:49 | disposition home or self-care (01) ==
LOC: JONCCHEMO 15:07 → J7W 15:08 → JONCCHEMO 17:49
PROVIDERS: ATTEND Internal Medicine Hematology & Oncology
PROC: 3E043GC Introduction of Other Therapeutic Substance into Central Vein, Percutaneous Approach (ICD-10-PCS; principal; 2022-11-08)
DX: C18.2 Malignant neoplasm of ascending colon (principal); C78.7 Secondary malignant neoplasm of liver and intrahepatic bile duct
CPT/HCPCS: 96374

== ENCOUNTER 2022-12-04 09:44 | Day surgery (SDC) | payer OTHER ==
[~2022-12-04 09:44] MED LIST changes: -D5-NS + 20 MEQ KCL - 20 MEQ/1,000 ML INFUS.BAG IV ONE; -PROCHLORPERAZINE INJECTION 10 MG in SODIUM CHLORIDE 50 ML IVPB ONE; +SODIUM CHLORIDE 250 ML IV ONE
[2022-12-04] MEDS ORDERED: FOSAPREPITANT DIMEGLUMINE 150 MG in SODIUM CHLORIDE 145 ML IVPB ONE (10:00)
[2022-12-04] MEDS ORDERED: PALONOSETRON HCL 0.25 MG/5 ML VIAL IVPUSH ONE (10:00)
[2022-12-04] MEDS ORDERED: DEXAMETHASONE SODIUM PHOSPHATE 10 MG in SODIUM CHLORIDE 50 ML IVPB ONE (10:00)
[2022-12-04] MEDS ORDERED: ATROPINE SO4 0.4 MG/1 ML VIAL IVPUSH ONE (10:00)
[2022-12-04 10:24] LABS: BASO % 0.7 % (0-2.0); HEMOGLOBIN 13.2 GM/dL (11.7-16.9); LYMPH % 22.7 % (8-40); MCH 28.3 pg (25.7-33.7); MCHC 32.9 g/dl (32.0-35.9); MEAN PLT VOLUME 6.7 fl (7.5-11.1); MONO % 11.8 % (3.8-10.2); NEUT % 58.8 % (42.8-82.8); PLATELET COUNT 408 10^3/uL (134-434); RBC 4.65 M/mm3 (4.00-5.60); RDW 16.8 % (11.9-15.9)
[2022-12-04] MEDS ORDERED: BEVACIZUMAB-AWWB 400 MG, BEVACIZUMAB-AWWB 30 MG in SODIUM CHLORIDE 100 ML IVPB ONE (10:30)
[2022-12-04 10:38] LABS: POTASSIUM 4.2 mmol/L (3.5-5.1)
[2022-12-04 10:40] LABS: ALBUMIN 3.5 g/dl (3.4-5.0); BLOOD UREA NITROGEN 10.4 mg/dL (7-18); CALCIUM 8.7 mg/dL (8.5-10.1); MAGNESIUM 2.2 mg/dL (1.8-2.4)
[2022-12-04 10:43] LABS: BILIRUBIN,DIRECT 0.2 mg/dL (0.0-0.2); CREATININE 0.9 mg/dL (0.55-1.3)
[2022-12-04 10:44] LABS: BILIRUBIN,TOTAL 0.6 mg/dL (0.2-1); TOT PROT 7.2 g/dl (6.4-8.2)
[2022-12-04] MEDS ORDERED: DEXTROSE 5% IVPB ONE (11:00)
[2022-12-04] MEDS ORDERED: WATER IVPB ONE (11:00)
[2022-12-04] MEDS ORDERED: LEUCOVORIN CALCIUM IVPB ONE (11:00)
[2022-12-04] MEDS ORDERED: IRINOTECAN HCL 360 MG in DEXTROSE 5%-WATER - 500 ML IVPB ONE (11:30)
[2022-12-04] MEDS ORDERED: FLUOROURACIL 2,500 MG/50 ML VIAL IVPUSH ONE (13:00)
[2022-12-04] MEDS ORDERED: SODIUM CHLORIDE CP ONE (13:00)
[2022-12-04] MEDS ORDERED: FLUOROURACIL CP ONE (13:00)
[2022-12-04 16:59] VITALS: BP 135/82; PULSE 20; RESP 75; TEMP 98.4
[2022-12-04] MEDS ORDERED: PORTA CATH FLUSH 10 ML IVPUSH PRN (17:11)
== END 2022-12-04 15:35 | disposition home or self-care (01) ==
LOC: JONCCHEMO 09:44 → J7W 09:45 → JONCCHEMO 15:35
PROVIDERS: ATTEND Internal Medicine Hematology & Oncology
DX: Z51.11 Encounter for antineoplastic chemotherapy (principal); C18.2 Malignant neoplasm of ascending colon; C78.7 Secondary malignant neoplasm of liver and intrahepatic bile duct
CPT/HCPCS: 36415; 80048; 80076; 83735; 84156; 85025; G0498; J1453; J2469; J9206; Q5107

== ENCOUNTER 2022-12-06 13:57 | Day surgery (SDC) | payer OTHER ==
[~2022-12-06 13:57] MED LIST changes: +D5-NS + 20 MEQ KCL - 10 MEQ/500 ML INFUS.BAG IV ONE; +PROCHLORPERAZINE INJECTION 10 MG in SODIUM CHLORIDE 50 ML IVPB ONE; -SODIUM CHLORIDE 250 ML IV ONE
[2022-12-06] MEDS ORDERED: PORTA CATH FLUSH 10 ML IVPUSH PRN (15:10)
[2022-12-06 15:48] VITALS: BP 121/77; PULSE 73; RESP 20; TEMP 98.3
== END 2022-12-06 15:25 | disposition home or self-care (01) ==
LOC: JONCCHEMO 13:57
PROVIDERS: ATTEND Internal Medicine Hematology & Oncology
PROC: 3E043GC Introduction of Other Therapeutic Substance into Central Vein, Percutaneous Approach (ICD-10-PCS; principal; 2022-12-06)
DX: C18.2 Malignant neoplasm of ascending colon (principal); C78.7 Secondary malignant neoplasm of liver and intrahepatic bile duct
CPT/HCPCS: 96365

== ENCOUNTER 2022-12-18 11:38 | Day surgery (SDC) | payer OTHER ==
[~2022-12-18 11:38] MED LIST changes: +ATROPINE SO4 0.4 MG/1 ML VIAL IVPUSH ONE; +BEVACIZUMAB-AWWB 400 MG, BEVACIZUMAB-AWWB 30 MG in SODIUM CHLORIDE 100 ML IVPB ONE; -D5-NS + 20 MEQ KCL - 10 MEQ/500 ML INFUS.BAG IV ONE; +DEXAMETHASONE SODIUM PHOSPHATE 10 MG in SODIUM CHLORIDE 50 ML IVPB ONE; +DEXTROSE 5% IVPB ONE; +FOSAPREPITANT DIMEGLUMINE 150 MG in SODIUM CHLORIDE 145 ML IVPB ONE; +IRINOTECAN HCL 360 MG in DEXTROSE 5%-WATER - 500 ML IVPB ONE; +LEUCOVORIN CALCIUM IVPB ONE; +PALONOSETRON HCL 0.25 MG/5 ML VIAL IVPUSH ONE; -PROCHLORPERAZINE INJECTION 10 MG in SODIUM CHLORIDE 50 ML IVPB ONE; +SODIUM CHLORIDE 250 ML IV ONE; +WATER IVPB ONE
[2022-12-18] MEDS ORDERED: FLUOROURACIL 1,000 MG/20 ML VIAL IVPUSH ONE (12:30)
[2022-12-18] MEDS ORDERED: FLUOROURACIL CP ONE (12:30)
[2022-12-18] MEDS ORDERED: SODIUM CHLORIDE CP ONE (12:30)
[2022-12-18 12:40] LABS: BASO % 0.7 % (0-2.0); EOS % 4.3 % (0-4.5); HEMATOCRIT 42.3 % (35.4-49); HEMOGLOBIN 13.6 GM/dL (11.7-16.9); LYMPH % 17.9 % (8-40); MCH 28.4 pg (25.7-33.7); MCHC 32.2 g/dl (32.0-35.9); MEAN CELL VOLUME 88.4 fl (80-96); MEAN PLT VOLUME 6.5 fl (7.5-11.1); MONO % 10.9 % (3.8-10.2); NEUT % 66.2 % (42.8-82.8); PLATELET COUNT 433 10^3/uL (134-434); RBC 4.79 M/mm3 (4.00-5.60); RDW 16.8 % (11.9-15.9); WHITE BLOOD COUNT 4.7 K/mm3 (4.0-10.0)
[2022-12-18 12:43] LABS: POTASSIUM 4.1 mmol/L (3.5-5.1)
[2022-12-18 12:45] LABS: CALCIUM 8.6 mg/dL (8.5-10.1)
[2022-12-18 12:46] LABS: ALBUMIN 3.4 g/dl (3.4-5.0); MAGNESIUM 2.2 mg/dL (1.8-2.4)
[2022-12-18 12:49] LABS: BILIRUBIN,DIRECT 0.2 mg/dL (0.0-0.2); CREATININE 0.8 mg/dL (0.55-1.3)
[2022-12-18 12:50] LABS: BILIRUBIN,TOTAL 0.6 mg/dL (0.2-1); TOT PROT 7.3 g/dl (6.4-8.2)
[2022-12-18 13:11] LABS: BLOOD UREA NITROGEN 10.8 mg/dL (7-18)
[2022-12-18 18:20] VITALS: BP 145/83; PULSE 87; RESP 20; TEMP 98.3
== END 2022-12-18 17:15 | disposition home or self-care (01) ==
LOC: JONCCHEMO 11:38 → J7W 11:41 → JONCCHEMO 17:15
PROVIDERS: ATTEND Internal Medicine Hematology & Oncology
DX: Z51.11 Encounter for antineoplastic chemotherapy (principal); C18.2 Malignant neoplasm of ascending colon; C78.7 Secondary malignant neoplasm of liver and intrahepatic bile duct
CPT/HCPCS: 36415; 80048; 80076; 83735; 84156; 85025; 96366; 96367; 96375; 96413; 96417; G0498; J1453; J2469; J9206; Q5107

== ENCOUNTER 2022-12-20 15:49 | Day surgery (SDC) | payer OTHER ==
[~2022-12-20 15:49] MED LIST changes: -ATROPINE SO4 0.4 MG/1 ML VIAL IVPUSH ONE; -BEVACIZUMAB-AWWB 400 MG, BEVACIZUMAB-AWWB 30 MG in SODIUM CHLORIDE 100 ML IVPB ONE; +D5-NS + 20 MEQ KCL - 10 MEQ/500 ML INFUS.BAG IV ONE; -DEXAMETHASONE SODIUM PHOSPHATE 10 MG in SODIUM CHLORIDE 50 ML IVPB ONE; -DEXTROSE 5% IVPB ONE; -FOSAPREPITANT DIMEGLUMINE 150 MG in SODIUM CHLORIDE 145 ML IVPB ONE; -IRINOTECAN HCL 360 MG in DEXTROSE 5%-WATER - 500 ML IVPB ONE; -LEUCOVORIN CALCIUM IVPB ONE; -PALONOSETRON HCL 0.25 MG/5 ML VIAL IVPUSH ONE; +PROCHLORPERAZINE INJECTION 10 MG in SODIUM CHLORIDE 50 ML IVPB ONE; -SODIUM CHLORIDE 250 ML IV ONE; -WATER IVPB ONE
[2022-12-20] MEDS ORDERED: PORTA CATH FLUSH 10 ML IVPUSH PRN (17:38)
[2022-12-20 17:39] VITALS: BP 117/79; PULSE 83; RESP 20; TEMP 98.4
== END 2022-12-20 16:50 | disposition home or self-care (01) ==
LOC: JONCCHEMO 15:49 → J7W 15:49 → JONCCHEMO 16:50
PROVIDERS: ATTEND Internal Medicine Hematology & Oncology
PROC: 3E043GC Introduction of Other Therapeutic Substance into Central Vein, Percutaneous Approach (ICD-10-PCS; principal; 2022-12-20)
DX: C18.2 Malignant neoplasm of ascending colon (principal); C78.7 Secondary malignant neoplasm of liver and intrahepatic bile duct
CPT/HCPCS: 96374

== ENCOUNTER 2023-01-08 10:30 | Day surgery (SDC) | payer OTHER ==
[~2023-01-08 10:30] MED LIST changes: +ATROPINE SO4 0.4 MG/1 ML VIAL IVPUSH ONE; +BEVACIZUMAB-AWWB 400 MG, BEVACIZUMAB-AWWB 30 MG in SODIUM CHLORIDE 100 ML IVPB ONE; -D5-NS + 20 MEQ KCL - 10 MEQ/500 ML INFUS.BAG IV ONE; +DEXAMETHASONE SODIUM PHOSPHATE 10 MG in SODIUM CHLORIDE 50 ML IVPB ONE; +DEXTROSE 5% IVPB ONE; +FLUOROURACIL 1,000 MG/20 ML VIAL IVPUSH ONE; +FLUOROURACIL CP ONE; +FOSAPREPITANT DIMEGLUMINE 150 MG in SODIUM CHLORIDE 145 ML IVPB ONE; +IRINOTECAN HCL 360 MG in DEXTROSE 5%-WATER - 500 ML IVPB ONE; +LEUCOVORIN CALCIUM IVPB ONE; +PALONOSETRON HCL 0.25 MG/5 ML VIAL IVPUSH ONE; -PROCHLORPERAZINE INJECTION 10 MG in SODIUM CHLORIDE 50 ML IVPB ONE; +SODIUM CHLORIDE 250 ML IV ONE; +SODIUM CHLORIDE CP ONE; +WATER IVPB ONE
[2023-01-08 11:45] LABS: BASO % 0.6 % (0-2.0); EOS % 5.1 % (0-4.5); HEMATOCRIT 41.8 % (35.4-49); HEMOGLOBIN 13.5 GM/dL (11.7-16.9); LYMPH % 20.8 % (8-40); MCH 27.8 pg (25.7-33.7); MCHC 32.2 g/dl (32.0-35.9); MEAN CELL VOLUME 86.3 fl (80-96); MEAN PLT VOLUME 6.7 fl (7.5-11.1); MONO % 13.1 % (3.8-10.2); NEUT % 60.4 % (42.8-82.8); PLATELET COUNT 543 10^3/uL (134-434); RBC 4.85 M/mm3 (4.00-5.60); WHITE BLOOD COUNT 5.5 K/mm3 (4.0-10.0)
[2023-01-08 11:48] LABS: POTASSIUM 4.3 mmol/L (3.5-5.1)
[2023-01-08 11:50] LABS: ALBUMIN 3.4 g/dl (3.4-5.0); BLOOD UREA NITROGEN 11.2 mg/dL (7-18); CALCIUM 9.1 mg/dL (8.5-10.1); MAGNESIUM 2.4 mg/dL (1.8-2.4)
[2023-01-08 11:53] LABS: BILIRUBIN,DIRECT 0.1 mg/dL (0.0-0.2)
[2023-01-08 11:54] LABS: CREATININE 0.8 mg/dL (0.55-1.3)
[2023-01-08 11:55] LABS: TOT PROT 7.2 g/dl (6.4-8.2)
[2023-01-08 11:56] LABS: BILIRUBIN,TOTAL 0.4 mg/dL (0.2-1)
[2023-01-08] MEDS ORDERED: FLUOROURACIL 1,000 MG/20 ML VIAL IVPUSH ONE (12:30)
[2023-01-08] MEDS ORDERED: SODIUM CHLORIDE CP ONE (12:45)
[2023-01-08] MEDS ORDERED: FLUOROURACIL CP ONE (12:45)
[2023-01-08 16:25] VITALS: TEMP 98.5
[2023-01-08] MEDS ORDERED: PORTA CATH FLUSH 10 ML IVPUSH PRN (16:26)
[2023-01-08 16:51] VITALS: BP 139/88; PULSE 79; RESP 18
== END 2023-01-08 16:59 | disposition home or self-care (01) ==
LOC: JONCCHEMO 10:30 → J7W 10:31 → JONCCHEMO 16:59
PROVIDERS: ATTEND Internal Medicine Hematology & Oncology
DX: Z51.11 Encounter for antineoplastic chemotherapy (principal); C18.2 Malignant neoplasm of ascending colon; C78.7 Secondary malignant neoplasm of liver and intrahepatic bile duct
CPT/HCPCS: 36415; 80048; 80076; 83735; 84156; 85025; 96366; 96367; 96375; 96411; 96413; 96417; G0498; J1453; J2469; J9206; Q5107

== ENCOUNTER 2023-01-10 15:32 | Day surgery (SDC) | payer OTHER ==
[~2023-01-10 15:32] MED LIST changes: -ATROPINE SO4 0.4 MG/1 ML VIAL IVPUSH ONE; -BEVACIZUMAB-AWWB 400 MG, BEVACIZUMAB-AWWB 30 MG in SODIUM CHLORIDE 100 ML IVPB ONE; +D5-NS + 20 MEQ KCL - 10 MEQ/500 ML INFUS.BAG IV ONE; -DEXAMETHASONE SODIUM PHOSPHATE 10 MG in SODIUM CHLORIDE 50 ML IVPB ONE; -DEXTROSE 5% IVPB ONE; -FLUOROURACIL 1,000 MG/20 ML VIAL IVPUSH ONE; -FLUOROURACIL CP ONE; -FOSAPREPITANT DIMEGLUMINE 150 MG in SODIUM CHLORIDE 145 ML IVPB ONE; -IRINOTECAN HCL 360 MG in DEXTROSE 5%-WATER - 500 ML IVPB ONE; -LEUCOVORIN CALCIUM IVPB ONE; -PALONOSETRON HCL 0.25 MG/5 ML VIAL IVPUSH ONE; +PROCHLORPERAZINE INJECTION 10 MG in SODIUM CHLORIDE 50 ML IVPB ONE; -SODIUM CHLORIDE 250 ML IV ONE; -SODIUM CHLORIDE CP ONE; -WATER IVPB ONE
[2023-01-10 15:54] VITALS: RESP 18; TEMP 98.3
[2023-01-10] MEDS ORDERED: PORTA CATH FLUSH 10 ML IVPUSH PRN (16:48)
[2023-01-10 18:36] VITALS: BP 119/72; PULSE 73
== END 2023-01-10 16:49 | disposition home or self-care (01) ==
LOC: JONCCHEMO 15:32 → J7W 15:34 → JONCCHEMO 16:49
PROVIDERS: ATTEND Internal Medicine Hematology & Oncology
PROC: 3E043GC Introduction of Other Therapeutic Substance into Central Vein, Percutaneous Approach (ICD-10-PCS; principal; 2023-01-10)
DX: C18.2 Malignant neoplasm of ascending colon (principal); C18.7 Malignant neoplasm of sigmoid colon; Z76.89 Persons encountering health services in other specified circumstances
CPT/HCPCS: 96365

== ENCOUNTER 2023-01-29 11:09 | Day surgery (SDC) | payer OTHER ==
[~2023-01-29 11:09] MED LIST changes: +ATROPINE SO4 0.4 MG/1 ML VIAL IVPUSH ONE; +BEVACIZUMAB-AWWB 400 MG, BEVACIZUMAB-AWWB 30 MG in SODIUM CHLORIDE 100 ML IVPB ONE; -D5-NS + 20 MEQ KCL - 10 MEQ/500 ML INFUS.BAG IV ONE; +DEXAMETHASONE SODIUM PHOSPHATE 10 MG in SODIUM CHLORIDE 50 ML IVPB ONE; +DEXTROSE 5% IVPB ONE; +FOSAPREPITANT DIMEGLUMINE 150 MG in SODIUM CHLORIDE 145 ML IVPB ONE; +IRINOTECAN HCL 360 MG in DEXTROSE 5%-WATER - 500 ML IVPB ONE; +LEUCOVORIN CALCIUM IVPB ONE; +PALONOSETRON HCL 0.25 MG/5 ML VIAL IVPUSH ONE; -PROCHLORPERAZINE INJECTION 10 MG in SODIUM CHLORIDE 50 ML IVPB ONE; +SODIUM CHLORIDE 250 ML IV ONE; +WATER IVPB ONE
[2023-01-29 11:41] LABS: BASO % 0.8 % (0-2.0); EOS % 5.3 % (0-4.5); HEMATOCRIT 42.2 % (35.4-49); HEMOGLOBIN 13.3 GM/dL (11.7-16.9); LYMPH % 21.1 % (8-40); MCH 27.8 pg (25.7-33.7); MCHC 31.5 g/dl (32.0-35.9); MEAN CELL VOLUME 88.1 fl (80-96); MEAN PLT VOLUME 6.5 fl (7.5-11.1); MONO % 12.4 % (3.8-10.2); NEUT % 60.4 % (42.8-82.8); PLATELET COUNT 498 10^3/uL (134-434); RBC 4.79 M/mm3 (4.00-5.60); RDW 15.3 % (11.9-15.9); WHITE BLOOD COUNT 4.9 K/mm3 (4.0-10.0)
[2023-01-29 12:00] LABS: POTASSIUM 3.9 mmol/L (3.5-5.1)
[2023-01-29 12:02] LABS: CALCIUM 8.9 mg/dL (8.5-10.1)
[2023-01-29 12:03] LABS: ALBUMIN 3.4 g/dl (3.4-5.0); BLOOD UREA NITROGEN 10.2 mg/dL (7-18)
[2023-01-29 12:05] LABS: BILIRUBIN,DIRECT 0.2 mg/dL (0.0-0.2)
[2023-01-29 12:06] LABS: CREATININE 0.8 mg/dL (0.55-1.3)
[2023-01-29 12:07] LABS: BILIRUBIN,TOTAL 0.8 mg/dL (0.2-1); TOT PROT 7.2 g/dl (6.4-8.2)
[2023-01-29] MEDS ORDERED: FLUOROURACIL 1,000 MG/20 ML VIAL IVPUSH ONE (12:30)
[2023-01-29] MEDS ORDERED: SODIUM CHLORIDE CP ONE (12:45)
[2023-01-29] MEDS ORDERED: FLUOROURACIL CP ONE (12:45)
[2023-01-29 16:08] VITALS: RESP 20; TEMP 98.1
[2023-01-29] MEDS ORDERED: PORTA CATH FLUSH 10 ML IVPUSH PRN (16:08)
[2023-01-29 17:16] VITALS: BP 165/73; PULSE 75
== END 2023-01-29 17:16 | disposition home or self-care (01) ==
LOC: JONCCHEMO 11:09 → J7W 11:23 → JONCCHEMO 17:16
PROVIDERS: ATTEND Internal Medicine Hematology & Oncology
PROC: 3E04305 Introduction of Other Antineoplastic into Central Vein, Percutaneous Approach (ICD-10-PCS; principal; 2023-01-29)
PROC: 3E033GC Introduction of Other Therapeutic Substance into Peripheral Vein, Percutaneous Approach (ICD-10-PCS; 2023-01-29)
PROC: 3E0337Z Introduction of Electrolytic and Water Balance Substance into Peripheral Vein, Percutaneous Approach (ICD-10-PCS; 2023-01-29)
PROC: 3E04305 Introduction of Other Antineoplastic into Central Vein, Percutaneous Approach (ICD-10-PCS; 2023-01-29)
DX: Z51.11 Encounter for antineoplastic chemotherapy (principal); C18.2 Malignant neoplasm of ascending colon; C78.7 Secondary malignant neoplasm of liver and intrahepatic bile duct
CPT/HCPCS: 36415; 80048; 80076; 83735; 84156; 85025; 96366; 96367; 96375; 96413; 96417; G0498; J1453; J2469; J9206; Q5107

== ENCOUNTER 2023-01-31 16:44 | Day surgery (SDC) | payer OTHER ==
[~2023-01-31 16:44] MED LIST changes: -ATROPINE SO4 0.4 MG/1 ML VIAL IVPUSH ONE; -BEVACIZUMAB-AWWB 400 MG, BEVACIZUMAB-AWWB 30 MG in SODIUM CHLORIDE 100 ML IVPB ONE; +D5-NS + 20 MEQ KCL - 10 MEQ/500 ML INFUS.BAG IV ONE; -DEXAMETHASONE SODIUM PHOSPHATE 10 MG in SODIUM CHLORIDE 50 ML IVPB ONE; -DEXTROSE 5% IVPB ONE; -FOSAPREPITANT DIMEGLUMINE 150 MG in SODIUM CHLORIDE 145 ML IVPB ONE; -IRINOTECAN HCL 360 MG in DEXTROSE 5%-WATER - 500 ML IVPB ONE; -LEUCOVORIN CALCIUM IVPB ONE; -PALONOSETRON HCL 0.25 MG/5 ML VIAL IVPUSH ONE; +PROCHLORPERAZINE INJECTION 10 MG in SODIUM CHLORIDE 50 ML IVPB ONE; -SODIUM CHLORIDE 250 ML IV ONE; -WATER IVPB ONE
[2023-01-31 16:55] VITALS: BP 125/80; PULSE 78; RESP 20; TEMP 98.2
[2023-01-31] MEDS ORDERED: PORTA CATH FLUSH 10 ML IVPUSH PRN (16:55)
== END 2023-01-31 16:57 | disposition home or self-care (01) ==
LOC: JONCCHEMO 16:44 → J7W 16:45 → JONCCHEMO 16:57
PROVIDERS: ATTEND Internal Medicine Hematology & Oncology
PROC: 3E033GC Introduction of Other Therapeutic Substance into Peripheral Vein, Percutaneous Approach (ICD-10-PCS; principal; 2023-01-31)
PROC: 3E0337Z Introduction of Electrolytic and Water Balance Substance into Peripheral Vein, Percutaneous Approach (ICD-10-PCS; 2023-01-31)
DX: Z76.89 Persons encountering health services in other specified circumstances (principal); C18.2 Malignant neoplasm of ascending colon; C78.7 Secondary malignant neoplasm of liver and intrahepatic bile duct
CPT/HCPCS: 96365

== ENCOUNTER 2023-02-12 11:48 | Day surgery (SDC) | payer OTHER ==
[~2023-02-12 11:48] MED LIST changes: +ATROPINE SO4 0.4 MG/1 ML VIAL IVPUSH ONE; +BEVACIZUMAB-AWWB 400 MG, BEVACIZUMAB-AWWB 30 MG in SODIUM CHLORIDE 100 ML IVPB ONE; -D5-NS + 20 MEQ KCL - 10 MEQ/500 ML INFUS.BAG IV ONE; +DEXAMETHASONE SODIUM PHOSPHATE 10 MG in SODIUM CHLORIDE 50 ML IVPB ONE; +DEXTROSE 5% IVPB ONE; +FOSAPREPITANT DIMEGLUMINE 150 MG in SODIUM CHLORIDE 145 ML IVPB ONE; +IRINOTECAN HCL 360 MG in DEXTROSE 5%-WATER - 500 ML IVPB ONE; +LEUCOVORIN CALCIUM IVPB ONE; +PALONOSETRON HCL 0.25 MG/5 ML VIAL IVPUSH ONE; -PROCHLORPERAZINE INJECTION 10 MG in SODIUM CHLORIDE 50 ML IVPB ONE; +SODIUM CHLORIDE 250 ML IV ONE; +WATER IVPB ONE
[2023-02-12 12:27] LABS: BASO % 0.7 % (0-2.0); EOS % 5.3 % (0-4.5); HEMATOCRIT 40.2 % (35.4-49); HEMOGLOBIN 13.1 GM/dL (11.7-16.9); LYMPH % 20.7 % (8-40); MCHC 32.5 g/dl (32.0-35.9); MEAN CELL VOLUME 85.9 fl (80-96); MEAN PLT VOLUME 6.6 fl (7.5-11.1); NEUT % 63.3 % (42.8-82.8); PLATELET COUNT 474 10^3/uL (134-434); RBC 4.68 M/mm3 (4.00-5.60); RDW 15.2 % (11.9-15.9); WHITE BLOOD COUNT 4.8 K/mm3 (4.0-10.0)
[2023-02-12 12:50] LABS: POTASSIUM 4.1 mmol/L (3.5-5.1)
[2023-02-12 12:56] LABS: ALBUMIN 3.2 g/dl (3.4-5.0); BLOOD UREA NITROGEN 7.6 mg/dL (7-18); CALCIUM 8.7 mg/dL (8.5-10.1); MAGNESIUM 2.1 mg/dL (1.8-2.4)
[2023-02-12 12:59] LABS: BILIRUBIN,DIRECT 0.2 mg/dL (0.0-0.2); BILIRUBIN,TOTAL 0.6 mg/dL (0.2-1); CREATININE 0.7 mg/dL (0.55-1.3); TOT PROT 7.1 g/dl (6.4-8.2)
[2023-02-12] MEDS ORDERED: SODIUM CHLORIDE CP ONE (13:00)
[2023-02-12] MEDS ORDERED: FLUOROURACIL 1,000 MG/20 ML VIAL IVPUSH ONE (13:00)
[2023-02-12] MEDS ORDERED: FLUOROURACIL CP ONE (13:00)
[2023-02-13] MEDS ORDERED: SODIUM CHLORIDE 250 ML IV ONE (09:30)
[2023-02-13] MEDS ORDERED: PALONOSETRON HCL 0.25 MG/5 ML VIAL IVPUSH ONE (10:00)
[2023-02-13] MEDS ORDERED: FOSAPREPITANT DIMEGLUMINE 150 MG in SODIUM CHLORIDE 145 ML IVPB ONE (10:00)
[2023-02-13] MEDS ORDERED: ATROPINE SO4 0.4 MG/1 ML VIAL IVPUSH ONE (10:00)
[2023-02-13] MEDS ORDERED: DEXAMETHASONE SODIUM PHOSPHATE 10 MG in SODIUM CHLORIDE 50 ML IVPB ONE (10:00)
[2023-02-13] MEDS ORDERED: BEVACIZUMAB-AWWB 400 MG, BEVACIZUMAB-AWWB 30 MG in SODIUM CHLORIDE 100 ML IVPB ONE (10:30)
[2023-02-13] MEDS ORDERED: WATER IVPB ONE (11:00)
[2023-02-13] MEDS ORDERED: LEUCOVORIN CALCIUM IVPB ONE (11:00)
[2023-02-13] MEDS ORDERED: DEXTROSE 5% IVPB ONE (11:00)
[2023-02-13] MEDS ORDERED: IRINOTECAN HCL 360 MG in DEXTROSE 5%-WATER - 500 ML IVPB ONE (11:30)
[2023-02-13] MEDS ORDERED: FLUOROURACIL 1,000 MG/20 ML VIAL IVPUSH ONE (13:00)
[2023-02-13] MEDS ORDERED: FLUOROURACIL CP ONE (13:30)
[2023-02-13] MEDS ORDERED: SODIUM CHLORIDE CP ONE (13:30)
== END 2023-02-12 12:00 | disposition home or self-care (01) ==
LOC: J7W 11:48 → JONCCHEMO 11:48
PROVIDERS: ATTEND Internal Medicine Hematology & Oncology
DX: Z53.8 Procedure and treatment not carried out for other reasons (principal)
CPT/HCPCS: 36415; 80048; 80076; 83735; 85025

== ENCOUNTER 2023-02-19 10:50 | Day surgery (SDC) | payer OTHER ==
[2023-02-19 11:50] LABS: BASO % 0.8 % (0-2.0); EOS % 5.8 % (0-4.5); HEMATOCRIT 42.4 % (35.4-49); HEMOGLOBIN 13.6 GM/dL (11.7-16.9); LYMPH % 23.9 % (8-40); MCH 27.8 pg (25.7-33.7); MEAN CELL VOLUME 86.9 fl (80-96); MEAN PLT VOLUME 6.8 fl (7.5-11.1); NEUT % 59.5 % (42.8-82.8); PLATELET COUNT 528 10^3/uL (134-434); RBC 4.88 M/mm3 (4.00-5.60); RDW 15.7 % (11.9-15.9); WHITE BLOOD COUNT 4.6 K/mm3 (4.0-10.0)
[2023-02-19 12:15] LABS: POTASSIUM 4.2 mmol/L (3.5-5.1)
[2023-02-19 12:17] LABS: BLOOD UREA NITROGEN 7.1 mg/dL (7-18); MAGNESIUM 2.1 mg/dL (1.8-2.4)
[2023-02-19 12:18] LABS: ALBUMIN 3.4 g/dl (3.4-5.0)
[2023-02-19 12:20] LABS: CREATININE 0.8 mg/dL (0.55-1.3)
[2023-02-19 12:21] LABS: BILIRUBIN,DIRECT 0.2 mg/dL (0.0-0.2)
[2023-02-19 12:23] LABS: BILIRUBIN,TOTAL 0.6 mg/dL (0.2-1); TOT PROT 7.3 g/dl (6.4-8.2)
[2023-02-19] MEDS ORDERED: FLUOROURACIL 1,000 MG/20 ML VIAL IVPUSH ONE (12:30)
[2023-02-19] MEDS ORDERED: FLUOROURACIL CP ONE (12:45)
[2023-02-19] MEDS ORDERED: SODIUM CHLORIDE CP ONE (12:45)
[2023-02-19 18:45] VITALS: BP 129/81; PULSE 92; RESP 20; TEMP 98
[2023-02-19] MEDS ORDERED: PORTA CATH FLUSH 10 ML IVPUSH PRN (18:45)
== END 2023-02-19 17:30 | disposition home or self-care (01) ==
LOC: JONCCHEMO 10:50 → J7W 10:52 → JONCCHEMO 17:30
PROVIDERS: ATTEND Internal Medicine Hematology & Oncology
DX: Z51.11 Encounter for antineoplastic chemotherapy (principal); C18.2 Malignant neoplasm of ascending colon
CPT/HCPCS: 36415; 80048; 80076; 83735; 84156; 85025; 96366; 96367; 96375; 96413; 96417; G0498; J1453; J2469; J9206; Q5107

== ENCOUNTER 2023-02-21 16:29 | Day surgery (SDC) | payer OTHER ==
[~2023-02-21 16:29] MED LIST changes: -ATROPINE SO4 0.4 MG/1 ML VIAL IVPUSH ONE; -BEVACIZUMAB-AWWB 400 MG, BEVACIZUMAB-AWWB 30 MG in SODIUM CHLORIDE 100 ML IVPB ONE; +D5-NS + 20 MEQ KCL - 10 MEQ/500 ML INFUS.BAG IV ONE; -DEXAMETHASONE SODIUM PHOSPHATE 10 MG in SODIUM CHLORIDE 50 ML IVPB ONE; -DEXTROSE 5% IVPB ONE; -FOSAPREPITANT DIMEGLUMINE 150 MG in SODIUM CHLORIDE 145 ML IVPB ONE; -IRINOTECAN HCL 360 MG in DEXTROSE 5%-WATER - 500 ML IVPB ONE; -LEUCOVORIN CALCIUM IVPB ONE; -PALONOSETRON HCL 0.25 MG/5 ML VIAL IVPUSH ONE; +PROCHLORPERAZINE INJECTION 10 MG in SODIUM CHLORIDE 50 ML IVPB ONE; -SODIUM CHLORIDE 250 ML IV ONE; -WATER IVPB ONE
[2023-02-21] MEDS ORDERED: PORTA CATH FLUSH 10 ML IVPUSH PRN (19:06)
[2023-02-21 19:07] VITALS: BP 138/88; PULSE 87; RESP 20; TEMP 97.5
== END 2023-02-21 18:00 | disposition home or self-care (01) ==
LOC: JONCCHEMO 16:29
PROVIDERS: ATTEND Internal Medicine Hematology & Oncology
PROC: 3E043GC Introduction of Other Therapeutic Substance into Central Vein, Percutaneous Approach (ICD-10-PCS; principal; 2023-02-21)
DX: C18.2 Malignant neoplasm of ascending colon (principal); C78.7 Secondary malignant neoplasm of liver and intrahepatic bile duct; Z76.89 Persons encountering health services in other specified circumstances
CPT/HCPCS: 96365

== ENCOUNTER 2023-03-12 10:36 | Day surgery (SDC) | payer OTHER ==
[~2023-03-12 10:36] MED LIST changes: +ATROPINE SO4 0.4 MG/1 ML VIAL IVPUSH ONE; +BEVACIZUMAB-AWWB 400 MG, BEVACIZUMAB-AWWB 30 MG in SODIUM CHLORIDE 100 ML IVPB ONE; -D5-NS + 20 MEQ KCL - 10 MEQ/500 ML INFUS.BAG IV ONE; +DEXAMETHASONE SODIUM PHOSPHATE 10 MG in SODIUM CHLORIDE 50 ML IVPB ONE; +DEXTROSE 5% IVPB ONE; +FLUOROURACIL 1,000 MG/20 ML VIAL IVPUSH ONE; +FLUOROURACIL CP ONE; +FOSAPREPITANT DIMEGLUMINE 150 MG in SODIUM CHLORIDE 145 ML IVPB ONE; +IRINOTECAN HCL 360 MG in DEXTROSE 5%-WATER - 500 ML IVPB ONE; +LEUCOVORIN CALCIUM IVPB ONE; +PALONOSETRON HCL 0.25 MG/5 ML VIAL IVPUSH ONE; -PROCHLORPERAZINE INJECTION 10 MG in SODIUM CHLORIDE 50 ML IVPB ONE; +SODIUM CHLORIDE 250 ML IV ONE; +SODIUM CHLORIDE CP ONE; +WATER IVPB ONE
[2023-03-12 11:57] LABS: BASO % 0.7 % (0-2.0); EOS % 6.9 % (0-4.5); HEMATOCRIT 41.4 % (35.4-49); HEMOGLOBIN 13.1 GM/dL (11.7-16.9); LYMPH % 20.6 % (8-40); MCH 27.5 pg (25.7-33.7); MCHC 31.7 g/dl (32.0-35.9); MEAN CELL VOLUME 86.8 fl (80-96); MEAN PLT VOLUME 6.7 fl (7.5-11.1); MONO % 13.9 % (3.8-10.2); NEUT % 57.9 % (42.8-82.8); PLATELET COUNT 505 10^3/uL (134-434); RBC 4.76 M/mm3 (4.00-5.60); WHITE BLOOD COUNT 4.5 K/mm3 (4.0-10.0)
[2023-03-12] MEDS ORDERED: SODIUM CHLORIDE 250 ML IV ONE (12:00)
[2023-03-12] MEDS ORDERED: DEXAMETHASONE SODIUM PHOSPHATE 10 MG in SODIUM CHLORIDE 50 ML IVPB ONE (12:15)
[2023-03-12 12:25] LABS: CALCIUM 8.7 mg/dL (8.5-10.1)
[2023-03-12 12:26] LABS: BLOOD UREA NITROGEN 9.9 mg/dL (7-18); MAGNESIUM 1.9 mg/dL (1.8-2.4)
[2023-03-12 12:29] LABS: CREATININE 0.7 mg/dL (0.55-1.3)
[2023-03-12] MEDS ORDERED: FOSAPREPITANT DIMEGLUMINE 150 MG in SODIUM CHLORIDE 145 ML IVPB ONE (12:30)
[2023-03-12] MEDS ORDERED: PALONOSETRON HCL 0.25 MG/5 ML VIAL IVPUSH ONE (12:30)
[2023-03-12] MEDS ORDERED: ATROPINE SO4 0.4 MG/1 ML VIAL IVPUSH ONE (12:30)
[2023-03-12 13:00] LABS: ALBUMIN 3.4 g/dl (3.4-5.0)
[2023-03-12] MEDS ORDERED: BEVACIZUMAB-AWWB 400 MG, BEVACIZUMAB-AWWB 30 MG in SODIUM CHLORIDE 100 ML IVPB ONE (13:00)
[2023-03-12 13:03] LABS: BILIRUBIN,DIRECT 0.2 mg/dL (0.0-0.2)
[2023-03-12 13:05] LABS: BILIRUBIN,TOTAL 0.3 mg/dL (0.2-1)
[2023-03-12] MEDS ORDERED: DEXTROSE 5% IVPB ONE (13:30)
[2023-03-12] MEDS ORDERED: LEUCOVORIN CALCIUM IVPB ONE (13:30)
[2023-03-12] MEDS ORDERED: IRINOTECAN HCL 360 MG in DEXTROSE 5%-WATER - 500 ML IVPB ONE (13:30)
[2023-03-12] MEDS ORDERED: WATER IVPB ONE (13:30)
[2023-03-12] MEDS ORDERED: FLUOROURACIL 1,000 MG/20 ML VIAL IVPUSH ONE (15:30)
[2023-03-12] MEDS ORDERED: SODIUM CHLORIDE CP ONE (15:45)
[2023-03-12] MEDS ORDERED: FLUOROURACIL CP ONE (15:45)
[2023-03-12 18:07] VITALS: BP 155/88; PULSE 80; RESP 20
[2023-03-12 18:19] VITALS: TEMP 98.1
[2023-03-12] MEDS ORDERED: PORTA CATH FLUSH 10 ML IVPUSH PRN (18:19)
== END 2023-03-12 18:15 | disposition home or self-care (01) ==
LOC: JONCCHEMO 10:36 → J7W 10:37 → JONCCHEMO 18:15
PROVIDERS: ATTEND Internal Medicine Hematology & Oncology
DX: Z51.11 Encounter for antineoplastic chemotherapy (principal); C18.2 Malignant neoplasm of ascending colon; C78.7 Secondary malignant neoplasm of liver and intrahepatic bile duct
CPT/HCPCS: 36415; 80048; 80076; 83735; 84156; 85025; 96366; 96367; 96375; 96413; 96415; 96417; G0498; J1453; J2469; J9206; Q5107

== ENCOUNTER 2023-03-14 17:00 | Day surgery (SDC) | payer OTHER ==
[~2023-03-14 17:00] MED LIST changes: -ATROPINE SO4 0.4 MG/1 ML VIAL IVPUSH ONE; -BEVACIZUMAB-AWWB 400 MG, BEVACIZUMAB-AWWB 30 MG in SODIUM CHLORIDE 100 ML IVPB ONE; +D5-NS + 20 MEQ KCL - 10 MEQ/500 ML INFUS.BAG IV ONE; -DEXAMETHASONE SODIUM PHOSPHATE 10 MG in SODIUM CHLORIDE 50 ML IVPB ONE; -DEXTROSE 5% IVPB ONE; -FLUOROURACIL 1,000 MG/20 ML VIAL IVPUSH ONE; -FLUOROURACIL CP ONE; -FOSAPREPITANT DIMEGLUMINE 150 MG in SODIUM CHLORIDE 145 ML IVPB ONE; -IRINOTECAN HCL 360 MG in DEXTROSE 5%-WATER - 500 ML IVPB ONE; -LEUCOVORIN CALCIUM IVPB ONE; -PALONOSETRON HCL 0.25 MG/5 ML VIAL IVPUSH ONE; +PROCHLORPERAZINE INJECTION 10 MG in SODIUM CHLORIDE 50 ML IVPB ONE; -SODIUM CHLORIDE 250 ML IV ONE; -SODIUM CHLORIDE CP ONE; -WATER IVPB ONE
[2023-03-14 17:12] VITALS: RESP 20; TEMP 98.2
[2023-03-14] MEDS ORDERED: PORTA CATH FLUSH 10 ML IVPUSH PRN (17:22)
[2023-03-14 18:11] VITALS: BP 130/75; PULSE 81
== END 2023-03-14 18:12 | disposition home or self-care (01) ==
LOC: JONCCHEMO 17:00 → J2C 17:00 → JONCCHEMO 18:12
PROVIDERS: ATTEND Internal Medicine Hematology & Oncology
PROC: 3E043GC Introduction of Other Therapeutic Substance into Central Vein, Percutaneous Approach (ICD-10-PCS; principal; 2023-03-14)
DX: C18.2 Malignant neoplasm of ascending colon (principal); C78.7 Secondary malignant neoplasm of liver and intrahepatic bile duct
CPT/HCPCS: 96374

== ENCOUNTER 2023-03-26 11:19 | Day surgery (SDC) | payer OTHER ==
[~2023-03-26 11:19] MED LIST changes: +ATROPINE SO4 0.4 MG/1 ML VIAL IVPUSH ONE; +BEVACIZUMAB-AWWB 400 MG, BEVACIZUMAB-AWWB 30 MG in SODIUM CHLORIDE 100 ML IVPB ONE; -D5-NS + 20 MEQ KCL - 10 MEQ/500 ML INFUS.BAG IV ONE; +DEXAMETHASONE SODIUM PHOSPHATE 10 MG in SODIUM CHLORIDE 50 ML IVPB ONE; +DEXTROSE 5% IVPB ONE; +FOSAPREPITANT DIMEGLUMINE 150 MG in SODIUM CHLORIDE 145 ML IVPB ONE; +LEUCOVORIN CALCIUM IVPB ONE; +PALONOSETRON HCL 0.25 MG/5 ML VIAL IVPUSH ONE; -PROCHLORPERAZINE INJECTION 10 MG in SODIUM CHLORIDE 50 ML IVPB ONE; +SODIUM CHLORIDE 250 ML IV ONE; +WATER IVPB ONE
[2023-03-26] MEDS ORDERED: IRINOTECAN HCL 360 MG in DEXTROSE 5%-WATER - 500 ML IVPB ONE (11:30)
[2023-03-26 11:50] LABS: BASO % 0.6 % (0-2.0); EOS % 5.4 % (0-4.5); HEMATOCRIT 41.1 % (35.4-49); HEMOGLOBIN 13.1 GM/dL (11.7-16.9); LYMPH % 17.1 % (8-40); MCH 27.9 pg (25.7-33.7); MCHC 31.9 g/dl (32.0-35.9); MEAN CELL VOLUME 87.3 fl (80-96); MEAN PLT VOLUME 6.3 fl (7.5-11.1); MONO % 9.7 % (3.8-10.2); NEUT % 67.2 % (42.8-82.8); PLATELET COUNT 437 10^3/uL (134-434); RDW 16.1 % (11.9-15.9); WHITE BLOOD COUNT 5.2 K/mm3 (4.0-10.0)
[2023-03-26 12:41] LABS: ALBUMIN 3.2 g/dl (3.4-5.0); BILIRUBIN,DIRECT 0.2 mg/dL (0.0-0.2); BILIRUBIN,TOTAL 0.7 mg/dL (0.2-1); BLOOD UREA NITROGEN 7.3 mg/dL (7-18); CALCIUM 8.6 mg/dL (8.5-10.1); CREATININE 0.7 mg/dL (0.55-1.3); MAGNESIUM 2.3 mg/dL (1.8-2.4); POTASSIUM 3.8 mmol/L (3.5-5.1); TOT PROT 6.9 g/dl (6.4-8.2)
[2023-03-26] MEDS ORDERED: FLUOROURACIL 1,000 MG/20 ML VIAL IVPUSH ONE (13:00)
[2023-03-26] MEDS ORDERED: SODIUM CHLORIDE CP ONE (13:30)
[2023-03-26] MEDS ORDERED: FLUOROURACIL CP ONE (13:30)
[2023-03-26 15:18] VITALS: TEMP 98.4
[2023-03-26] MEDS ORDERED: PORTA CATH FLUSH 10 ML IVPUSH PRN (15:24)
[2023-03-26 19:02] VITALS: BP 177/96; PULSE 74; RESP 18
== END 2023-03-26 19:06 | disposition home or self-care (01) ==
LOC: JONCCHEMO 11:19 → J7W 11:20 → JONCCHEMO 19:06
PROVIDERS: ATTEND Internal Medicine Hematology & Oncology
DX: Z51.11 Encounter for antineoplastic chemotherapy (principal); C18.2 Malignant neoplasm of ascending colon; C78.7 Secondary malignant neoplasm of liver and intrahepatic bile duct
CPT/HCPCS: 36415; 80048; 80076; 83735; 84156; 85025; 96367; 96368; 96375; 96413; 96415; 96417; G0498; J1453; J2469; J9206; Q5107

== ENCOUNTER 2023-03-28 17:30 | Day surgery (SDC) | payer OTHER ==
[~2023-03-28 17:30] MED LIST changes: -ATROPINE SO4 0.4 MG/1 ML VIAL IVPUSH ONE; -BEVACIZUMAB-AWWB 400 MG, BEVACIZUMAB-AWWB 30 MG in SODIUM CHLORIDE 100 ML IVPB ONE; +D5-NS + 20 MEQ KCL - 10 MEQ/500 ML INFUS.BAG IV ONE; -DEXAMETHASONE SODIUM PHOSPHATE 10 MG in SODIUM CHLORIDE 50 ML IVPB ONE; -DEXTROSE 5% IVPB ONE; -FOSAPREPITANT DIMEGLUMINE 150 MG in SODIUM CHLORIDE 145 ML IVPB ONE; -LEUCOVORIN CALCIUM IVPB ONE; -PALONOSETRON HCL 0.25 MG/5 ML VIAL IVPUSH ONE; +PROCHLORPERAZINE INJECTION 10 MG in SODIUM CHLORIDE 50 ML IVPB ONE; -SODIUM CHLORIDE 250 ML IV ONE; -WATER IVPB ONE
[2023-03-28 18:07] VITALS: RESP 20; TEMP 98.4
[2023-03-28] MEDS ORDERED: PORTA CATH FLUSH 10 ML IVPUSH PRN (18:08)
[2023-03-28 19:00] VITALS: BP 130/78; PULSE 88
[2023-03-29] MEDS ORDERED: PORTA CATH FLUSH 10 ML IVPUSH PRN (08:31)
== END 2023-03-28 19:00 | disposition home or self-care (01) ==
LOC: J7W 17:30 → JONCCHEMO 17:30
PROVIDERS: ATTEND Internal Medicine Hematology & Oncology
PROC: 3E043GC Introduction of Other Therapeutic Substance into Central Vein, Percutaneous Approach (ICD-10-PCS; principal; 2023-03-28)
DX: C18.2 Malignant neoplasm of ascending colon (principal); C78.7 Secondary malignant neoplasm of liver and intrahepatic bile duct
CPT/HCPCS: 96365

== ENCOUNTER 2023-04-18 09:37 | Day surgery (SDC) | payer OTHER ==
[~2023-04-18 09:37] MED LIST changes: -D5-NS + 20 MEQ KCL - 10 MEQ/500 ML INFUS.BAG IV ONE; +DEXAMETHASONE SODIUM PHOSPHATE 10 MG in SODIUM CHLORIDE 50 ML IVPB ONE; +FOSAPREPITANT DIMEGLUMINE 150 MG in SODIUM CHLORIDE 145 ML IVPB ONE; -PROCHLORPERAZINE INJECTION 10 MG in SODIUM CHLORIDE 50 ML IVPB ONE
[2023-04-18] MEDS: SODIUM CHLORIDE 250 ML IV ONE (10:00)
[2023-04-18] MEDS: FOSAPREPITANT DIMEGLUMINE 150 MG in SODIUM CHLORIDE 145 ML IVPB ONE (11:04)
[2023-04-18] MEDS: DEXAMETHASONE SODIUM PHOSPHATE 10 MG in SODIUM CHLORIDE 50 ML IVPB ONE (11:53)
[2023-04-18] MEDS: PALONOSETRON HCL 0.25 MG/5 ML VIAL IVPUSH ONE (12:11)
[2023-04-18] MEDS: SODIUM CHLORIDE IVPB ONE (12:17)
[2023-04-18] MEDS: BEVACIZUMAB AWWB IVPB ONE (12:17)
[2023-04-18] MEDS: LEUCOVORIN CALCIUM IVPB ONE (12:54)
[2023-04-18] MEDS: DEXTROSE 5% IVPB ONE (12:54)
[2023-04-18] MEDS: ATROPINE SO4 0.4 MG/1 ML VIAL IVPUSH ONE (12:54)
[2023-04-18] MEDS: WATER IVPB ONE (12:54)
[2023-04-18] MEDS: IRINOTECAN HCL 360 MG in DEXTROSE 5%-WATER - 500 ML IVPB ONE (13:34)
[2023-04-18] MEDS: FLUOROURACIL 1,000 MG/20 ML VIAL IVPUSH ONE (15:19)
[2023-04-18] MEDS: SODIUM CHLORIDE CP ONE (15:25)
[2023-04-18] MEDS: FLUOROURACIL CP ONE (15:25)
[2023-04-18 18:10] VITALS: RESP 18; TEMP 98.1
[2023-04-18] MEDS ORDERED: PORTA CATH FLUSH 10 ML IVPUSH PRN (18:11)
[2023-04-18 19:10] VITALS: BP 140/93; PULSE 78
== END 2023-04-18 16:00 | disposition home or self-care (01) ==
LOC: JONCCHEMO 09:37 → J7W 09:37 → JONCCHEMO 16:00
PROVIDERS: ATTEND Internal Medicine Hematology & Oncology
DX: Z51.11 Encounter for antineoplastic chemotherapy (principal); C18.2 Malignant neoplasm of ascending colon; C78.7 Secondary malignant neoplasm of liver and intrahepatic bile duct
CPT/HCPCS: 84156; 96367; 96375; 96411; 96413; 96417; G0498; J1453; J2469; J9206; Q5107

== ENCOUNTER 2023-04-20 14:07 | Day surgery (SDC) | payer OTHER ==
[2023-04-20] MEDS: D5-NS + 40 MEQ KCL - 20 MEQ/500 ML INFUS.BAG IV ONE (14:38)
[2023-04-20] MEDS: PROCHLORPERAZINE INJECTION 10 MG in SODIUM CHLORIDE 50 ML IVPB ONE (15:00)
[2023-04-20 15:02] VITALS: RESP 18; TEMP 98.3
[2023-04-20] MEDS: PORTA CATH FLUSH 10 ML IVPUSH PRN (15:45)
[2023-04-20 16:04] VITALS: BP 154/93; PULSE 85
== END 2023-04-20 16:07 | disposition home or self-care (01) ==
LOC: JONCCHEMO 14:07 → J7W 14:08 → JONCCHEMO 16:07
PROVIDERS: ATTEND Internal Medicine Hematology & Oncology
PROC: 3E043GC Introduction of Other Therapeutic Substance into Central Vein, Percutaneous Approach (ICD-10-PCS; principal; 2023-04-20)
DX: C18.2 Malignant neoplasm of ascending colon (principal); C78.7 Secondary malignant neoplasm of liver and intrahepatic bile duct
CPT/HCPCS: 96374

== ENCOUNTER → 2023-04-25 | Day surgery (SDC) | payer OTHER | END | disposition home or self-care (01) | LOC: JRADIR 11:55 | PROVIDERS: ATTEND Internal Medicine Hematology & Oncology | PROC: 0G9H3ZX Drainage of Right Thyroid Gland Lobe, Percutaneous Approach, Diagnostic (ICD-10-PCS; principal; 2023-04-25) | DX: E04.1 Nontoxic single thyroid nodule (principal) | CPT/HCPCS: 10005; 76942; 88173; 88305-TC ==

== ENCOUNTER 2023-05-07 11:30 | Day surgery (SDC) | payer OTHER ==
[2023-05-07 11:54] LABS: BASO % 0.8 % (0-2.0); EOS % 6.3 % (0-4.5); HEMATOCRIT 41.3 % (35.4-49); HEMOGLOBIN 13.3 GM/dL (11.7-16.9); LYMPH % 17.6 % (8-40); MCH 28.3 pg (25.7-33.7); MCHC 32.2 g/dl (32.0-35.9); MEAN CELL VOLUME 87.9 fl (80-96); MEAN PLT VOLUME 6.5 fl (7.5-11.1); MONO % 15.8 % (3.8-10.2); NEUT % 59.5 % (42.8-82.8); PLATELET COUNT 441 10^3/uL (134-434); RBC 4.69 M/mm3 (4.00-5.60); RDW 15.6 % (11.9-15.9); WHITE BLOOD COUNT 4.8 K/mm3 (4.0-10.0)
[2023-05-07 12:19] LABS: POTASSIUM 4.2 mmol/L (3.5-5.1)
[2023-05-07] MEDS: SODIUM CHLORIDE 250 ML IV ONE (12:22)
[2023-05-07 12:23] LABS: BLOOD UREA NITROGEN 11.7 mg/dL (7-18); CALCIUM 8.8 mg/dL (8.5-10.1)
[2023-05-07 12:24] LABS: ALBUMIN 3.3 g/dl (3.4-5.0); MAGNESIUM 2.2 mg/dL (1.8-2.4)
[2023-05-07 12:26] LABS: BILIRUBIN,DIRECT 0.1 mg/dL (0.0-0.2)
[2023-05-07 12:27] LABS: CREATININE 0.8 mg/dL (0.55-1.3)
[2023-05-07 12:28] LABS: BILIRUBIN,TOTAL 0.4 mg/dL (0.2-1)
[2023-05-07] MEDS: FOSAPREPITANT DIMEGLUMINE 150 MG in SODIUM CHLORIDE 145 ML IVPB ONE (12:50)
[2023-05-07] MEDS: PALONOSETRON HCL 0.25 MG/5 ML VIAL IVPUSH ONE (13:32)
[2023-05-07] MEDS: DEXAMETHASONE SODIUM PHOSPHATE 10 MG in SODIUM CHLORIDE 50 ML IVPB ONE (13:33)
[2023-05-07] MEDS: SODIUM CHLORIDE IVPB ONE (14:00)
[2023-05-07] MEDS: BEVACIZUMAB AWWB IVPB ONE (14:00)
[2023-05-07] MEDS: ATROPINE SO4 0.4 MG/1 ML VIAL IVPUSH ONE (14:30)
[2023-05-07] MEDS: WATER IVPB ONE (14:35)
[2023-05-07] MEDS: DEXTROSE 5% IVPB ONE (14:35)
[2023-05-07] MEDS: LEUCOVORIN CALCIUM IVPB ONE (14:35)
[2023-05-07] MEDS: IRINOTECAN HCL 360 MG in DEXTROSE 5%-WATER - 500 ML IVPB ONE (15:08)
[2023-05-07 15:39] VITALS: RESP 18; TEMP 98.6
[2023-05-07] MEDS: FLUOROURACIL 1,000 MG/20 ML VIAL IVPUSH ONE (16:54)
[2023-05-07] MEDS: FLUOROURACIL CP ONE (17:00)
[2023-05-07] MEDS: SODIUM CHLORIDE CP ONE (17:00)
[2023-05-07 18:13] VITALS: BP 141/83; PULSE 75
[2023-05-07] MEDS ORDERED: PORTA CATH FLUSH 10 ML IVPUSH PRN (18:13)
== END 2023-05-07 17:15 | disposition home or self-care (01) ==
LOC: JONCCHEMO 11:30 → J7W 11:31 → JONCCHEMO 17:15
PROVIDERS: ATTEND Internal Medicine Hematology & Oncology
DX: Z51.11 Encounter for antineoplastic chemotherapy (principal); C18.2 Malignant neoplasm of ascending colon; C78.7 Secondary malignant neoplasm of liver and intrahepatic bile duct
CPT/HCPCS: 36415; 80048; 80076; 83735; 84156; 85025; 96367; 96375; 96411; 96413; 96417; G0498; J1453; J2469; J9206; Q5107

== ENCOUNTER 2023-05-09 16:09 | Day surgery (SDC) | payer OTHER ==
[~2023-05-09 16:09] MED LIST changes: +D5-NS + 40 MEQ KCL - 20 MEQ/500 ML INFUS.BAG IV ONE; -DEXAMETHASONE SODIUM PHOSPHATE 10 MG in SODIUM CHLORIDE 50 ML IVPB ONE; -FOSAPREPITANT DIMEGLUMINE 150 MG in SODIUM CHLORIDE 145 ML IVPB ONE
[2023-05-09] MEDS: D5-NS + 20 MEQ KCL - 10 MEQ/500 ML INFUS.BAG IV ONE (16:17)
[2023-05-09] MEDS: PROCHLORPERAZINE INJECTION 10 MG in SODIUM CHLORIDE 50 ML IVPB ONE (16:18)
[2023-05-09 16:24] VITALS: RESP 18; TEMP 98.5
[2023-05-09] MEDS: PORTA CATH FLUSH 10 ML IVPUSH PRN (17:50)
[2023-05-09 18:09] VITALS: BP 140/77; PULSE 78
== END 2023-05-09 18:17 | disposition home or self-care (01) ==
LOC: JONCCHEMO 16:09 → J7W 16:10 → JONCCHEMO 18:17
PROVIDERS: ATTEND Internal Medicine Hematology & Oncology
PROC: 3E043GC Introduction of Other Therapeutic Substance into Central Vein, Percutaneous Approach (ICD-10-PCS; principal; 2023-05-09)
DX: C18.2 Malignant neoplasm of ascending colon (principal); C78.7 Secondary malignant neoplasm of liver and intrahepatic bile duct; Z76.89 Persons encountering health services in other specified circumstances
CPT/HCPCS: 96374

== ENCOUNTER 2023-05-28 11:40 | Day surgery (SDC) | payer OTHER ==
[~2023-05-28 11:40] MED LIST changes: +ATROPINE SO4 0.4 MG/1 ML VIAL IVPUSH ONE; +BEVACIZUMAB AWWB IVPB ONE; -D5-NS + 40 MEQ KCL - 20 MEQ/500 ML INFUS.BAG IV ONE; +DEXAMETHASONE SODIUM PHOSPHATE 10 MG in SODIUM CHLORIDE 50 ML IVPB ONE; +DEXTROSE 5% IVPB ONE; +FLUOROURACIL 1,000 MG/20 ML VIAL IVPUSH ONE; +FLUOROURACIL CP ONE; +FOSAPREPITANT DIMEGLUMINE 150 MG in SODIUM CHLORIDE 145 ML IVPB ONE; +IRINOTECAN HCL 360 MG in DEXTROSE 5%-WATER - 500 ML IVPB ONE; +LEUCOVORIN CALCIUM IVPB ONE; +PALONOSETRON HCL 0.25 MG/5 ML VIAL IVPUSH ONE; +SODIUM CHLORIDE 250 ML IV ONE; +SODIUM CHLORIDE CP ONE; +SODIUM CHLORIDE IVPB ONE; +WATER IVPB ONE
[2023-05-28 12:23] LABS: BASO % 0.7 % (0-2.0); EOS % 6.2 % (0-4.5); HEMATOCRIT 39.8 % (35.4-49); HEMOGLOBIN 13.2 GM/dL (11.7-16.9); LYMPH % 19.3 % (8-40); MCH 28.7 pg (25.7-33.7); MCHC 33.1 g/dl (32.0-35.9); MEAN CELL VOLUME 86.7 fl (80-96); MEAN PLT VOLUME 6.8 fl (7.5-11.1); MONO % 14.2 % (3.8-10.2); NEUT % 59.6 % (42.8-82.8); PLATELET COUNT 441 10^3/uL (134-434); RDW 15.7 % (11.9-15.9); WHITE BLOOD COUNT 4.3 K/mm3 (4.0-10.0)
[2023-05-28] MEDS: SODIUM CHLORIDE 250 ML IV ONE (12:23)
[2023-05-28 12:51] LABS: CALCIUM 8.3 mg/dL (8.5-10.1)
[2023-05-28 12:52] LABS: ALBUMIN 3.4 g/dl (3.4-5.0)
[2023-05-28 12:54] LABS: BILIRUBIN,DIRECT 0.2 mg/dL (0.0-0.2); CREATININE 0.9 mg/dL (0.55-1.3)
[2023-05-28 12:56] LABS: BILIRUBIN,TOTAL 0.9 mg/dL (0.2-1)
[2023-05-28] MEDS: FOSAPREPITANT DIMEGLUMINE 150 MG in SODIUM CHLORIDE 145 ML IVPB ONE (13:15)
[2023-05-28] MEDS: DEXAMETHASONE SODIUM PHOSPHATE 10 MG in SODIUM CHLORIDE 50 ML IVPB ONE (13:51)
[2023-05-28] MEDS: PALONOSETRON HCL 0.25 MG/5 ML VIAL IVPUSH ONE (13:51)
[2023-05-28] MEDS: SODIUM CHLORIDE IVPB ONE (14:20)
[2023-05-28] MEDS: BEVACIZUMAB AWWB IVPB ONE (14:20)
[2023-05-28] MEDS: ATROPINE SO4 0.4 MG/1 ML VIAL IVPUSH ONE (15:06)
[2023-05-28] MEDS: LEUCOVORIN CALCIUM IVPB ONE (15:07)
[2023-05-28] MEDS: IRINOTECAN HCL 360 MG in DEXTROSE 5%-WATER - 500 ML IVPB ONE (15:07)
[2023-05-28] MEDS: WATER IVPB ONE (15:07)
[2023-05-28] MEDS: DEXTROSE 5% IVPB ONE (15:07)
[2023-05-28 15:35] VITALS: BP 141/84; PULSE 80; RESP 18; TEMP 98.2
[2023-05-28] MEDS: FLUOROURACIL 1,000 MG/20 ML VIAL IVPUSH ONE (17:28)
[2023-05-28] MEDS: SODIUM CHLORIDE CP ONE (17:28)
[2023-05-28] MEDS: FLUOROURACIL CP ONE (17:28)
[2023-05-28] MEDS: PORTA CATH FLUSH 10 ML IVPUSH PRN (17:28)
== END 2023-05-28 17:58 | disposition home or self-care (01) ==
LOC: JONCCHEMO 11:40 → J7W 11:40 → JONCCHEMO 17:58
PROVIDERS: ATTEND Internal Medicine Hematology & Oncology
DX: Z51.11 Encounter for antineoplastic chemotherapy (principal); C18.2 Malignant neoplasm of ascending colon; C78.7 Secondary malignant neoplasm of liver and intrahepatic bile duct
CPT/HCPCS: 36415; 80048; 80076; 83735; 84156; 85025; 96367; 96375; 96411; 96413; 96417; G0498; J1453; J2469; J9206; Q5107

== ENCOUNTER 2023-05-30 17:17 | Day surgery (SDC) | payer OTHER ==
[2023-05-30] MEDS: PROCHLORPERAZINE INJECTION 10 MG in SODIUM CHLORIDE 50 ML IVPB ONE (16:40)
[2023-05-30] MEDS: D5-NS + 20 MEQ KCL - 10 MEQ/500 ML INFUS.BAG IV ONE (16:43)
[2023-05-30] MEDS: PORTA CATH FLUSH 10 ML IVPUSH PRN (17:45)
[2023-05-30 17:53] VITALS: BP 135/78; PULSE 72; RESP 20; TEMP 98.4
== END 2023-05-30 18:14 | disposition home or self-care (01) ==
LOC: JONCCHEMO 17:17 → J7W 17:17 → JONCCHEMO 18:14
PROVIDERS: ATTEND Internal Medicine Hematology & Oncology
PROC: 3E043GC Introduction of Other Therapeutic Substance into Central Vein, Percutaneous Approach (ICD-10-PCS; principal; 2023-05-30)
DX: C18.2 Malignant neoplasm of ascending colon (principal); C78.7 Secondary malignant neoplasm of liver and intrahepatic bile duct
CPT/HCPCS: 96374

== ENCOUNTER 2023-06-25 11:58 | Day surgery (SDC) | payer OTHER ==
[2023-06-25 12:35] LABS: BASO % 0.8 % (0-2.0); EOS % 5.6 % (0-4.5); HEMOGLOBIN 12.9 GM/dL (11.7-16.9); MCH 28.4 pg (25.7-33.7); MEAN CELL VOLUME 86.2 fl (80-96); MEAN PLT VOLUME 6.6 fl (7.5-11.1); MONO % 10.6 % (3.8-10.2); PLATELET COUNT 481 10^3/uL (134-434); RBC 4.53 M/mm3 (4.00-5.60); WHITE BLOOD COUNT 5.3 K/mm3 (4.0-10.0)
[2023-06-25] MEDS: DEXAMETHASONE SODIUM PHOSPHATE 10 MG, DIPHENHYDRAMINE 25 MG in SODIUM CHLORIDE 100 ML IVPB ONE (12:46)
[2023-06-25] MEDS: SODIUM CHLORIDE 250 ML IV ONE (12:47)
[2023-06-25] MEDS: PALONOSETRON HCL 0.25 MG/5 ML VIAL IVPUSH ONE (12:49)
[2023-06-25 12:53] LABS: CALCIUM 8.5 mg/dL (8.5-10.1)
[2023-06-25 12:54] LABS: ALBUMIN 3.4 g/dl (3.4-5.0); MAGNESIUM 2.1 mg/dL (1.8-2.4)
[2023-06-25 12:58] LABS: BILIRUBIN,TOTAL 0.6 mg/dL (0.2-1)
[2023-06-25] MEDS: LEUCOVORIN CALCIUM IVPB ONE (13:58)
[2023-06-25] MEDS: WATER IVPB ONE (13:58)
[2023-06-25] MEDS: DEXTROSE 5% IVPB ONE (13:58)
[2023-06-25] MEDS: FLUOROURACIL 1,000 MG/20 ML VIAL IVPUSH ONE (16:21)
[2023-06-25] MEDS: SODIUM CHLORIDE CP ONE (16:22)
[2023-06-25] MEDS: FLUOROURACIL CP ONE (16:22)
[2023-06-25] MEDS ORDERED: PORTA CATH FLUSH 10 ML IVPUSH PRN (17:00)
[2023-06-26 01:46] VITALS: BP 155/89; PULSE 84; RESP 20; TEMP 98.3
== END 2023-06-25 16:35 | disposition home or self-care (01) ==
LOC: JONCCHEMO 11:58 → J7W 11:58 → JONCCHEMO 16:35
PROVIDERS: ATTEND Internal Medicine Hematology & Oncology
DX: Z51.11 Encounter for antineoplastic chemotherapy (principal); C18.2 Malignant neoplasm of ascending colon; C78.7 Secondary malignant neoplasm of liver and intrahepatic bile duct
CPT/HCPCS: 36415; 80053; 83735; 85025; 96367; 96368; 96375; 96411; 96413; 96415; G0498; J2469; J9263

== ENCOUNTER 2023-06-27 16:00 | Day surgery (SDC) | payer OTHER ==
[2023-06-27] MEDS: PROCHLORPERAZINE INJECTION 10 MG in SODIUM CHLORIDE 50 ML IVPB ONE (16:14)
[2023-06-27] MEDS: D5-NS + 20 MEQ KCL - 10 MEQ/500 ML INFUS.BAG IV ONE (16:14)
[2023-06-27 17:14] VITALS: BP 132/90; PULSE 101; RESP 20; TEMP 98.4
[2023-06-27] MEDS ORDERED: PORTA CATH FLUSH 10 ML IVPUSH PRN (17:14)
== END 2023-06-27 17:19 | disposition home or self-care (01) ==
LOC: JONCCHEMO 16:00 → J7W 16:00 → JONCCHEMO 17:19
PROVIDERS: ATTEND Internal Medicine Hematology & Oncology
PROC: 3E043GC Introduction of Other Therapeutic Substance into Central Vein, Percutaneous Approach (ICD-10-PCS; principal; 2023-06-27)
DX: C18.2 Malignant neoplasm of ascending colon (principal); C78.7 Secondary malignant neoplasm of liver and intrahepatic bile duct
CPT/HCPCS: 96365

== ENCOUNTER 2023-07-09 11:50 | Day surgery (SDC) | payer OTHER ==
[2023-07-09 12:44] LABS: BASO % 0.6 % (0-2.0); EOS % 4.9 % (0-4.5); HEMOGLOBIN 11.1 GM/dL (11.7-16.9); LYMPH % 14.4 % (8-40); MCH 27.8 pg (25.7-33.7); MCHC 32.6 g/dl (32.0-35.9); MEAN CELL VOLUME 85.1 fl (80-96); MEAN PLT VOLUME 6.5 fl (7.5-11.1); MONO % 13.6 % (3.8-10.2); NEUT % 66.5 % (42.8-82.8); PLATELET COUNT 478 10^3/uL (134-434); RBC 3.99 M/mm3 (4.00-5.60); RDW 15.3 % (11.9-15.9); WHITE BLOOD COUNT 5.2 K/mm3 (4.0-10.0)
[2023-07-09 13:01] LABS: POTASSIUM 3.6 mmol/L (3.5-5.1)
[2023-07-09 13:03] LABS: CALCIUM 8.7 mg/dL (8.5-10.1); MAGNESIUM 1.9 mg/dL (1.8-2.4)
[2023-07-09] MEDS: SODIUM CHLORIDE 250 ML IV ONE (13:03)
[2023-07-09 13:08] LABS: BILIRUBIN,TOTAL 0.7 mg/dL (0.2-1); TOT PROT 6.6 g/dl (6.4-8.2)
[2023-07-09] MEDS: PALONOSETRON HCL 0.25 MG/5 ML VIAL IVPUSH ONE (13:40)
[2023-07-09] MEDS: DEXAMETHASONE SODIUM PHOSPHATE 10 MG, DIPHENHYDRAMINE 25 MG in SODIUM CHLORIDE 100 ML IVPB ONE (13:41)
[2023-07-09] MEDS: DEXTROSE 5% IVPB ONE (14:24)
[2023-07-09] MEDS: LEUCOVORIN CALCIUM IVPB ONE (14:24)
[2023-07-09] MEDS: WATER IVPB ONE (14:24)
[2023-07-09 16:07] VITALS: PULSE 20; TEMP 98.5
[2023-07-09] MEDS: PORTA CATH FLUSH 10 ML IVPUSH PRN (16:55)
[2023-07-09] MEDS: FLUOROURACIL 1,000 MG/20 ML VIAL IVPUSH ONE (16:59)
[2023-07-09] MEDS: SODIUM CHLORIDE CP ONE (17:00)
[2023-07-09] MEDS: FLUOROURACIL CP ONE (17:00)
[2023-07-09 17:09] VITALS: BP 165/96; RESP 91
== END 2023-07-09 17:20 | disposition home or self-care (01) ==
LOC: JONCCHEMO 11:50 → J7W 11:56 → JONCCHEMO 17:20
PROVIDERS: ATTEND Internal Medicine Hematology & Oncology
DX: Z51.11 Encounter for antineoplastic chemotherapy (principal); C18.2 Malignant neoplasm of ascending colon; C78.7 Secondary malignant neoplasm of liver and intrahepatic bile duct
CPT/HCPCS: 36415; 80053; 83735; 85025; 96367; 96375; 96411; 96413; 96415; G0498; J2469; J9263

== ENCOUNTER 2023-07-11 16:20 | Day surgery (SDC) | payer OTHER ==
[2023-07-11 16:39] VITALS: RESP 20
[2023-07-11] MEDS: PORTA CATH FLUSH 10 ML IVPUSH PRN (16:40)
[2023-07-11] MEDS: D5-NS + 20 MEQ KCL - 10 MEQ/500 ML INFUS.BAG IV ONE (16:41)
[2023-07-11] MEDS: PROCHLORPERAZINE INJECTION 10 MG in SODIUM CHLORIDE 50 ML IVPB ONE (16:52)
[2023-07-11 18:11] VITALS: BP 134/83; PULSE 89; TEMP 98
== END 2023-07-11 18:00 | disposition home or self-care (01) ==
LOC: J7W 16:20 → JONCCHEMO 16:20
PROVIDERS: ATTEND Internal Medicine Hematology & Oncology
PROC: 3E033GC Introduction of Other Therapeutic Substance into Peripheral Vein, Percutaneous Approach (ICD-10-PCS; principal; 2023-07-11)
DX: C18.2 Malignant neoplasm of ascending colon (principal); C78.7 Secondary malignant neoplasm of liver and intrahepatic bile duct
CPT/HCPCS: 96374

== ENCOUNTER 2023-07-23 12:35 | Day surgery (SDC) | payer OTHER ==
[2023-07-23 12:43] LABS: BASO % 0.7 % (0-2.0); EOS % 3.7 % (0-4.5); HEMATOCRIT 36.4 % (35.4-49); HEMOGLOBIN 11.6 GM/dL (11.7-16.9); LYMPH % 16.6 % (8-40); MCH 27.2 pg (25.7-33.7); MEAN PLT VOLUME 6.2 fl (7.5-11.1); MONO % 13.7 % (3.8-10.2); NEUT % 65.3 % (42.8-82.8); PLATELET COUNT 457 10^3/uL (134-434); RBC 4.28 M/mm3 (4.00-5.60); RDW 15.5 % (11.9-15.9); WHITE BLOOD COUNT 4.7 K/mm3 (4.0-10.0)
[2023-07-23] MEDS: SODIUM CHLORIDE 250 ML IV ONE (12:53)
[2023-07-23 13:06] LABS: CHLORIDE 102 mmol/L (98-107); POTASSIUM 3.8 mmol/L (3.5-5.1); SODIUM 137 mmol/L (136-145)
[2023-07-23 13:09] LABS: ANION GAP 4 mmol/L (4-13); BLOOD UREA NITROGEN 8.9 mg/dL (7-18); CO2 31 mmol/L (21-32); GLUCOSE,RANDOM 203 mg/dL (74-106); MAGNESIUM 2.2 mg/dL (1.8-2.4)
[2023-07-23 13:11] LABS: SGPT/ALT 18 U/L (13-61)
[2023-07-23 13:12] LABS: CREATININE 1.1 mg/dL (0.55-1.3); SGOT/AST 17 U/L (15-37)
[2023-07-23 13:13] LABS: BILIRUBIN,TOTAL 0.7 mg/dL (0.2-1); TOT PROT 6.6 g/dl (6.4-8.2)
[2023-07-23 13:14] LABS: ALK PHOS 98 U/L (45-117)
[2023-07-23] MEDS: PALONOSETRON HCL 0.25 MG/5 ML VIAL IVPUSH ONE (13:20)
[2023-07-23] MEDS: DEXAMETHASONE SODIUM PHOSPHATE 10 MG, DIPHENHYDRAMINE 25 MG in SODIUM CHLORIDE 100 ML IVPB ONE (13:20)
[2023-07-23] MEDS: DEXTROSE 5% IVPB ONE (14:20)
[2023-07-23] MEDS: LEUCOVORIN CALCIUM IVPB ONE (14:20)
[2023-07-23] MEDS: WATER IVPB ONE (14:20)
[2023-07-23 15:08] VITALS: RESP 20; TEMP 98.3
[2023-07-23] MEDS: INSULIN (NOVOLOG) ASPART 100 UNITS/ML 10ML VIAL SQ ONE (16:15)
[2023-07-23] MEDS: PORTA CATH FLUSH 10 ML IVPUSH PRN (16:30)
[2023-07-23] MEDS: FLUOROURACIL 1,000 MG/20 ML VIAL IVPUSH ONE (16:32)
[2023-07-23] MEDS: FLUOROURACIL CP ONE (16:34)
[2023-07-23] MEDS: SODIUM CHLORIDE CP ONE (16:34)
[2023-07-23 16:43] VITALS: BP 149/93; PULSE 85
== END 2023-07-23 16:45 | disposition home or self-care (01) ==
LOC: JONCCHEMO 12:35 → J7W 12:35 → JONCCHEMO 16:45
PROVIDERS: ATTEND Internal Medicine Hematology & Oncology
PROC: 3E04305 Introduction of Other Antineoplastic into Central Vein, Percutaneous Approach (ICD-10-PCS; principal; 2023-07-23)
PROC: 3E04305 Introduction of Other Antineoplastic into Central Vein, Percutaneous Approach (ICD-10-PCS; 2023-07-23)
PROC: 3E043GC Introduction of Other Therapeutic Substance into Central Vein, Percutaneous Approach (ICD-10-PCS; 2023-07-23)
PROC: 3E0437Z Introduction of Electrolytic and Water Balance Substance into Central Vein, Percutaneous Approach (ICD-10-PCS; 2023-07-23)
PROC: 3E04305 Introduction of Other Antineoplastic into Central Vein, Percutaneous Approach (ICD-10-PCS; 2023-07-23)
DX: Z51.11 Encounter for antineoplastic chemotherapy (principal); C18.2 Malignant neoplasm of ascending colon; C78.7 Secondary malignant neoplasm of liver and intrahepatic bile duct
CPT/HCPCS: 36415; 80053; 83735; 85025; G0498; J2469; J9263

== ENCOUNTER 2023-07-25 15:25 | Day surgery (SDC) | payer OTHER ==
[2023-07-25] MEDS: D5-NS + 20 MEQ KCL - 10 MEQ/500 ML INFUS.BAG IV ONE (15:33)
[2023-07-25] MEDS: PROCHLORPERAZINE INJECTION 10 MG in SODIUM CHLORIDE 50 ML IVPB ONE (15:34)
[2023-07-25 15:59] VITALS: RESP 20; TEMP 98.4
[2023-07-25] MEDS: PORTA CATH FLUSH 10 ML IVPUSH PRN (16:34)
[2023-07-25 17:08] VITALS: BP 128/79; PULSE 99
== END 2023-07-25 17:11 | disposition home or self-care (01) ==
LOC: JONCCHEMO 15:25 → J7W 15:25 → JONCCHEMO 17:11
PROVIDERS: ATTEND Internal Medicine Hematology & Oncology
PROC: 3E043GC Introduction of Other Therapeutic Substance into Central Vein, Percutaneous Approach (ICD-10-PCS; principal; 2023-07-25)
PROC: 3E0437Z Introduction of Electrolytic and Water Balance Substance into Central Vein, Percutaneous Approach (ICD-10-PCS; 2023-07-25)
DX: Z76.89 Persons encountering health services in other specified circumstances (principal); C18.2 Malignant neoplasm of ascending colon; C78.7 Secondary malignant neoplasm of liver and intrahepatic bile duct

== ENCOUNTER 2023-08-13 11:43 | Day surgery (SDC) | payer OTHER ==
[~2023-08-13 11:43] MED LIST changes: -ATROPINE SO4 0.4 MG/1 ML VIAL IVPUSH ONE; -BEVACIZUMAB AWWB IVPB ONE; -DEXAMETHASONE SODIUM PHOSPHATE 10 MG in SODIUM CHLORIDE 50 ML IVPB ONE; +DEXAMETHASONE SODIUM PHOSPHATE 10 MG, DIPHENHYDRAMINE 25 MG in SODIUM CHLORIDE 100 ML IVPB ONE; +FLUOROURACIL 4,575 MG in SODIUM CHLORIDE 0.5 ML CP ONE; -FLUOROURACIL CP ONE; -FOSAPREPITANT DIMEGLUMINE 150 MG in SODIUM CHLORIDE 145 ML IVPB ONE; -IRINOTECAN HCL 360 MG in DEXTROSE 5%-WATER - 500 ML IVPB ONE; -SODIUM CHLORIDE CP ONE; -SODIUM CHLORIDE IVPB ONE
[2023-08-13 12:27] LABS: EOS % 4.2 % (0-4.5); HEMATOCRIT 38.7 % (35.4-49); HEMOGLOBIN 12.6 GM/dL (11.7-16.9); LYMPH % 20.4 % (8-40); MCHC 32.6 g/dl (32.0-35.9); MEAN CELL VOLUME 85.7 fl (80-96); MEAN PLT VOLUME 6.5 fl (7.5-11.1); MONO % 15.8 % (3.8-10.2); NEUT % 58.6 % (42.8-82.8); PLATELET COUNT 479 10^3/uL (134-434); RBC 4.52 M/mm3 (4.00-5.60); RDW 16.6 % (11.9-15.9); WHITE BLOOD COUNT 4.7 K/mm3 (4.0-10.0)
[2023-08-13 12:41] LABS: CHLORIDE 102 mmol/L (98-107); POTASSIUM 3.9 mmol/L (3.5-5.1); SODIUM 137 mmol/L (136-145)
[2023-08-13 12:43] LABS: CALCIUM 9.2 mg/dL (8.5-10.1)
[2023-08-13 12:44] LABS: ALBUMIN 3.4 g/dl (3.4-5.0); ANION GAP 5 mmol/L (4-13); BLOOD UREA NITROGEN 10.4 mg/dL (7-18); CO2 30 mmol/L (21-32); GLUCOSE,RANDOM 103 mg/dL (74-106); MAGNESIUM 2.2 mg/dL (1.8-2.4)
[2023-08-13 12:47] LABS: SGOT/AST 29 U/L (15-37); SGPT/ALT 18 U/L (13-61)
[2023-08-13 12:49] LABS: BILIRUBIN,TOTAL 0.8 mg/dL (0.2-1); TOT PROT 7.2 g/dl (6.4-8.2)
[2023-08-13 12:50] LABS: ALK PHOS 108 U/L (45-117)
[2023-08-13] MEDS: SODIUM CHLORIDE 250 ML IV ONE (13:00)
[2023-08-13] MEDS: PALONOSETRON HCL 0.25 MG/5 ML VIAL IVPUSH ONE (13:51)
[2023-08-13] MEDS: DEXAMETHASONE SODIUM PHOSPHATE 10 MG, DIPHENHYDRAMINE 25 MG in SODIUM CHLORIDE 100 ML IVPB ONE (13:53)
[2023-08-13] MEDS: WATER IVPB ONE ×2 (14:42→14:44)
[2023-08-13] MEDS: LEUCOVORIN CALCIUM IVPB ONE ×2 (14:42→14:44)
[2023-08-13] MEDS: DEXTROSE 5% IVPB ONE ×2 (14:42→14:44)
[2023-08-13 16:50] VITALS: TEMP 98.4
[2023-08-13] MEDS: FLUOROURACIL 1,000 MG/20 ML VIAL IVPUSH ONE (16:54)
[2023-08-13] MEDS: PORTA CATH FLUSH 10 ML IVPUSH PRN (16:55)
[2023-08-13] MEDS: FLUOROURACIL 4,575 MG in SODIUM CHLORIDE 0.5 ML CP ONE (16:56)
[2023-08-13 17:15] VITALS: BP 151/91; PULSE 91; RESP 18
[2023-08-13] MEDS ORDERED: PORTA CATH FLUSH 10 ML IVPUSH PRN (17:15)
== END 2023-08-13 17:44 | disposition home or self-care (01) ==
LOC: JONCCHEMO 11:43 → J7W 11:43 → JONCCHEMO 17:44
PROVIDERS: ATTEND Internal Medicine Hematology & Oncology
DX: Z51.11 Encounter for antineoplastic chemotherapy (principal); C18.2 Malignant neoplasm of ascending colon; C78.7 Secondary malignant neoplasm of liver and intrahepatic bile duct
CPT/HCPCS: 36415; 80053; 83735; 85025; 96367; 96368; 96375; 96411; 96413; 96415; G0498; J2469; J9263

== ENCOUNTER 2023-08-15 17:47 | Emergency (ER) | payer OTHER ==
[2023-08-15 17:52] VITALS: BP 138/90; PULSE 90; RESP 18; TEMP 98.5; BMI 22.8
[2023-08-15] MEDS ORDERED: ACETAMINOPHEN 500 MG TABLET (FP) ONE (18:46)
[2023-08-15] MEDS ORDERED: LIDOCAINE 4% PATCH TP ONE (18:46)
[2023-08-15] MEDS: ACETAMINOPHEN 500 MG TABLET (FP) PO ONE (18:50)
[2023-08-15] MEDS: LIDOCAINE 4% PATCH TP ONE (18:50)
== END 2023-08-15 19:07 | disposition home or self-care (01) ==
LOC: JERFT 17:47 → MERGE 17:47 → JERFT 19:07
DX: M54.9 Dorsalgia, unspecified (principal); V49.40XA Driver injured in collision with unspecified motor vehicles in traffic accident, initial encounter
CPT/HCPCS: 99283-25

== ENCOUNTER 2023-08-27 11:55 | Day surgery (SDC) | payer OTHER ==
[2023-08-27 12:30] LABS: CHLORIDE 106 mmol/L (98-107); POTASSIUM 3.8 mmol/L (3.5-5.1); SODIUM 138 mmol/L (136-145)
[2023-08-27 12:31] LABS: CALCIUM 8.9 mg/dL (8.5-10.1)
[2023-08-27 12:32] LABS: ALBUMIN 3.3 g/dl (3.4-5.0); ANION GAP 5 mmol/L (4-13); BLOOD UREA NITROGEN 6.2 mg/dL (7-18); CO2 27 mmol/L (21-32); GLUCOSE,RANDOM 101 mg/dL (74-106)
[2023-08-27 12:35] LABS: SGOT/AST 29 U/L (15-37); SGPT/ALT 17 U/L (13-61)
[2023-08-27 12:37] LABS: BILIRUBIN,TOTAL 0.8 mg/dL (0.2-1); TOT PROT 6.9 g/dl (6.4-8.2)
[2023-08-27 12:38] LABS: ALK PHOS 111 U/L (45-117)
[2023-08-27 12:42] LABS: BASO % 0.7 % (0-2.0); HEMATOCRIT 37.3 % (35.4-49); HEMOGLOBIN 11.9 GM/dL (11.7-16.9); LYMPH % 19.9 % (8-40); MCH 27.7 pg (25.7-33.7); MCHC 31.8 g/dl (32.0-35.9); MEAN CELL VOLUME 87.2 fl (80-96); MEAN PLT VOLUME 6.8 fl (7.5-11.1); MONO % 13.3 % (3.8-10.2); NEUT % 61.1 % (42.8-82.8); PLATELET COUNT 336 10^3/uL (134-434); RBC 4.28 M/mm3 (4.00-5.60); RDW 17.1 % (11.9-15.9); WHITE BLOOD COUNT 4.2 K/mm3 (4.0-10.0)
[2023-08-27] MEDS: SODIUM CHLORIDE 250 ML IV ONE (13:15)
[2023-08-27] MEDS: DEXAMETHASONE SODIUM PHOSPHATE 10 MG, DIPHENHYDRAMINE 25 MG in SODIUM CHLORIDE 100 ML IVPB ONE (13:21)
[2023-08-27] MEDS: PALONOSETRON HCL 0.25 MG/5 ML VIAL IVPUSH ONE (13:22)
[2023-08-27] MEDS: WATER IVPB ONE (14:21)
[2023-08-27] MEDS: LEUCOVORIN CALCIUM IVPB ONE (14:21)
[2023-08-27] MEDS: DEXTROSE 5% IVPB ONE (14:21)
[2023-08-27 16:28] VITALS: RESP 20; TEMP 98.4
[2023-08-27] MEDS: PORTA CATH FLUSH 10 ML IVPUSH PRN (16:43)
[2023-08-27] MEDS: FLUOROURACIL 1,000 MG/20 ML VIAL IVPUSH ONE (16:43)
[2023-08-27] MEDS: FLUOROURACIL 4,575 MG in SODIUM CHLORIDE 0.5 ML CP ONE (16:44)
[2023-08-27 17:21] VITALS: BP 165/91; PULSE 82
== END 2023-08-27 17:23 | disposition home or self-care (01) ==
LOC: J7W 11:55 → JONCCHEMO 11:55
PROVIDERS: ATTEND Internal Medicine Hematology & Oncology
DX: Z51.11 Encounter for antineoplastic chemotherapy (principal); C18.2 Malignant neoplasm of ascending colon; C78.7 Secondary malignant neoplasm of liver and intrahepatic bile duct
CPT/HCPCS: 36415; 80053; 83735; 85025; 96367; 96368; 96375; 96413; 96415; G0498; J2469; J9263

== ENCOUNTER 2023-08-29 16:00 | Day surgery (SDC) | payer OTHER ==
[2023-08-29] MEDS: D5-NS + 20 MEQ KCL - 10 MEQ/500 ML INFUS.BAG IV ONE (16:02)
[2023-08-29] MEDS: PROCHLORPERAZINE INJECTION 10 MG in SODIUM CHLORIDE 50 ML IVPB ONE (16:03)
[2023-08-29 16:23] VITALS: RESP 20; TEMP 98.8
[2023-08-29] MEDS: PORTA CATH FLUSH 10 ML IVPUSH PRN (17:26)
[2023-08-29 17:28] VITALS: BP 133/82; PULSE 88
== END 2023-08-29 17:32 | disposition home or self-care (01) ==
LOC: J7W 16:00 → JONCCHEMO 16:00
PROVIDERS: ATTEND Internal Medicine Hematology & Oncology
PROC: 3E043GC Introduction of Other Therapeutic Substance into Central Vein, Percutaneous Approach (ICD-10-PCS; principal; 2023-08-29)
DX: C18.2 Malignant neoplasm of ascending colon (principal); C78.7 Secondary malignant neoplasm of liver and intrahepatic bile duct; Z76.89 Persons encountering health services in other specified circumstances
CPT/HCPCS: 96374

== ENCOUNTER 2023-09-17 13:20 | Day surgery (SDC) | payer OTHER ==
[2023-09-17 13:20] LABS: BASO % 0.6 % (0-2.0); EOS % 3.1 % (0-4.5); HEMATOCRIT 39.3 % (35.4-49); HEMOGLOBIN 12.8 GM/dL (11.7-16.9); LYMPH % 20.5 % (8-40); MCH 27.8 pg (25.7-33.7); MCHC 32.5 g/dl (32.0-35.9); MEAN CELL VOLUME 85.5 fl (80-96); MEAN PLT VOLUME 6.4 fl (7.5-11.1); MONO % 18.9 % (3.8-10.2); NEUT % 56.9 % (42.8-82.8); PLATELET COUNT 499 10^3/uL (134-434); RBC 4.59 M/mm3 (4.00-5.60); RDW 16.6 % (11.9-15.9); WHITE BLOOD COUNT 4.1 K/mm3 (4.0-10.0)
[2023-09-17 13:32] LABS: POTASSIUM 3.6 mmol/L (3.5-5.1)
[2023-09-17 13:34] LABS: CALCIUM 9.2 mg/dL (8.5-10.1)
[2023-09-17 13:35] LABS: ALBUMIN 3.4 g/dl (3.4-5.0); MAGNESIUM 2.1 mg/dL (1.8-2.4)
[2023-09-17] MEDS: SODIUM CHLORIDE 250 ML IV ONE (13:37)
[2023-09-17 13:39] LABS: BILIRUBIN,TOTAL 0.7 mg/dL (0.2-1); TOT PROT 7.3 g/dl (6.4-8.2)
[2023-09-17] MEDS: PALONOSETRON HCL 0.25 MG/5 ML VIAL IVPUSH ONE (14:13)
[2023-09-17] MEDS: DEXAMETHASONE SODIUM PHOSPHATE 10 MG, DIPHENHYDRAMINE 25 MG in SODIUM CHLORIDE 100 ML IVPB ONE (14:13)
[2023-09-17] MEDS: DEXTROSE 5% IVPB ONE (15:05)
[2023-09-17] MEDS: WATER IVPB ONE (15:05)
[2023-09-17] MEDS: LEUCOVORIN CALCIUM IVPB ONE (15:05)
[2023-09-17 16:03] VITALS: RESP 20; TEMP 98.7
[2023-09-17] MEDS: FLUOROURACIL 1,000 MG/20 ML VIAL IVPUSH ONE (17:25)
[2023-09-17] MEDS: FLUOROURACIL 4,500 MG in SODIUM CHLORIDE 2 ML CP ONE (17:27)
[2023-09-17] MEDS: PORTA CATH FLUSH 10 ML IVPUSH PRN (17:28)
[2023-09-17 17:55] VITALS: BP 158/90; PULSE 82
== END 2023-09-17 17:59 | disposition home or self-care (01) ==
LOC: JONCCHEMO 13:20 → J7W 13:20 → JONCCHEMO 17:59
PROVIDERS: ATTEND Internal Medicine Hematology & Oncology
DX: Z51.11 Encounter for antineoplastic chemotherapy (principal); C18.2 Malignant neoplasm of ascending colon; C78.7 Secondary malignant neoplasm of liver and intrahepatic bile duct
CPT/HCPCS: 36415; 80053; 82378; 83735; 85025; 96365; 96367; 96368; 96375; 96411; 96413; 96415; 96416; G0498; J2469; J9263

== ENCOUNTER 2023-09-19 14:31 | Day surgery (SDC) | payer OTHER ==
[2023-09-19] MEDS: PROCHLORPERAZINE INJECTION 10 MG in SODIUM CHLORIDE 50 ML IVPB ONE (14:34)
[2023-09-19] MEDS: D5-NS + 20 MEQ KCL - 10 MEQ/500 ML INFUS.BAG IV ONE (14:36)
[2023-09-19] MEDS: PORTA CATH FLUSH 10 ML IVPUSH PRN (15:40)
[2023-09-19 17:07] VITALS: RESP 20
[2023-09-19 17:33] VITALS: BP 142/88; PULSE 94; TEMP 98.5
== END 2023-09-19 15:45 | disposition home or self-care (01) ==
LOC: JONCCHEMO 14:31 → J7W 14:31 → JONCCHEMO 15:45
PROVIDERS: ATTEND Internal Medicine Hematology & Oncology
PROC: 3E043GC Introduction of Other Therapeutic Substance into Central Vein, Percutaneous Approach (ICD-10-PCS; principal; 2023-09-19)
DX: C18.2 Malignant neoplasm of ascending colon (principal); C78.7 Secondary malignant neoplasm of liver and intrahepatic bile duct; Z76.89 Persons encountering health services in other specified circumstances
CPT/HCPCS: 96374

== ENCOUNTER 2023-10-02 10:43 | Day surgery (SDC) | payer OTHER ==
[~2023-10-02 10:43] MED LIST changes: +FLUOROURACIL 4,500 MG in SODIUM CHLORIDE 2 ML CP ONE; -FLUOROURACIL 4,575 MG in SODIUM CHLORIDE 0.5 ML CP ONE
[2023-10-02] MEDS: SODIUM CHLORIDE 250 ML IV ONE (10:59)
[2023-10-02] MEDS: DEXAMETHASONE SODIUM PHOSPHATE 10 MG, DIPHENHYDRAMINE 25 MG in SODIUM CHLORIDE 100 ML IVPB ONE (11:44)
[2023-10-02] MEDS: PALONOSETRON HCL 0.25 MG/5 ML VIAL IVPUSH ONE (11:44)
[2023-10-02] MEDS: LEUCOVORIN CALCIUM IVPB ONE (12:22)
[2023-10-02] MEDS: DEXTROSE 5% IVPB ONE (12:22)
[2023-10-02] MEDS: WATER IVPB ONE (12:22)
[2023-10-02] MEDS: FLUOROURACIL 1,000 MG/20 ML VIAL IVPUSH ONE (15:03)
[2023-10-02] MEDS: FLUOROURACIL 4,500 MG in SODIUM CHLORIDE 2 ML CP ONE (15:04)
[2023-10-02 15:37] VITALS: RESP 20; TEMP 97.8
[2023-10-02] MEDS ORDERED: PORTA CATH FLUSH 10 ML IVPUSH PRN (15:46)
[2023-10-02 15:47] VITALS: BP 151/91; PULSE 89
== END 2023-10-02 15:30 | disposition home or self-care (01) ==
LOC: JONCCHEMO 10:43 → J7W 10:44 → JONCCHEMO 15:30
PROVIDERS: ATTEND Internal Medicine Hematology & Oncology
DX: Z51.11 Encounter for antineoplastic chemotherapy (principal); C18.2 Malignant neoplasm of ascending colon; C78.7 Secondary malignant neoplasm of liver and intrahepatic bile duct
CPT/HCPCS: 96367; 96368; 96375; 96411; 96413; 96415; G0498; J2469; J9263

== ENCOUNTER 2023-10-04 14:23 | Day surgery (SDC) | payer OTHER ==
[2023-10-04] MEDS: D5-NS + 20 MEQ KCL - 10 MEQ/500 ML INFUS.BAG IV ONE (14:15)
[2023-10-04] MEDS: PROCHLORPERAZINE INJECTION 10 MG in SODIUM CHLORIDE 50 ML IVPB ONE (14:34)
[2023-10-04] MEDS: PORTA CATH FLUSH 10 ML IVPUSH PRN (15:45)
[2023-10-04 18:27] VITALS: RESP 20; TEMP 98.5
[2023-10-04 18:32] VITALS: BP 135/84; PULSE 90
== END 2023-10-04 15:45 | disposition home or self-care (01) ==
LOC: JONCCHEMO 14:23 → J7W 14:24 → JONCCHEMO 15:45
PROVIDERS: ATTEND Internal Medicine Hematology & Oncology
PROC: 3E043GC Introduction of Other Therapeutic Substance into Central Vein, Percutaneous Approach (ICD-10-PCS; principal; 2023-10-04)
DX: C18.2 Malignant neoplasm of ascending colon (principal); C78.7 Secondary malignant neoplasm of liver and intrahepatic bile duct
CPT/HCPCS: 96374

== ENCOUNTER 2023-10-16 11:23 | Day surgery (SDC) | payer OTHER ==
[2023-10-16] MEDS: PORTA CATH FLUSH 10 ML IVPUSH PRN (11:10)
[2023-10-16] MEDS: SODIUM CHLORIDE 250 ML IV ONE (11:15)
[2023-10-16] MEDS: DEXAMETHASONE SODIUM PHOSPHATE 10 MG, DIPHENHYDRAMINE 25 MG in SODIUM CHLORIDE 100 ML IVPB ONE (11:56)
[2023-10-16] MEDS: PALONOSETRON HCL 0.25 MG/5 ML VIAL IVPUSH ONE (11:57)
[2023-10-16] MEDS: DEXTROSE 5% IVPB ONE (13:16)
[2023-10-16] MEDS: WATER IVPB ONE (13:16)
[2023-10-16] MEDS: LEUCOVORIN IVPB ONE (13:16)
[2023-10-16] MEDS: SODIUM CHLORIDE CP ONE (15:39)
[2023-10-16] MEDS: FLUOROURACIL 1,000 MG/20 ML VIAL IVPUSH ONE (15:39)
[2023-10-16] MEDS: FLUOROURACIL CP ONE (15:39)
[2023-10-16 17:15] VITALS: BP 148/90; PULSE 102; RESP 20; TEMP 98.6
== END 2023-10-16 15:50 | disposition home or self-care (01) ==
LOC: J7W 11:23 → JONCCHEMO 11:23
PROVIDERS: ATTEND Internal Medicine Hematology & Oncology
DX: Z51.11 Encounter for antineoplastic chemotherapy (principal); C18.2 Malignant neoplasm of ascending colon; C78.7 Secondary malignant neoplasm of liver and intrahepatic bile duct
CPT/HCPCS: 96367; 96368; 96375; 96411; 96413; 96415; G0498; J2469; J9263

== ENCOUNTER 2023-10-18 15:15 | Day surgery (SDC) | payer OTHER ==
[2023-10-18] MEDS: PROCHLORPERAZINE INJECTION 10 MG in SODIUM CHLORIDE 50 ML IVPB ONE (14:35)
[2023-10-18] MEDS: D5-NS + 20 MEQ KCL - 10 MEQ/500 ML INFUS.BAG IV ONE (15:23)
[2023-10-18 18:34] VITALS: BP 112/71; PULSE 97; RESP 18; TEMP 97.8
== END 2023-10-18 16:40 | disposition home or self-care (01) ==
LOC: J7W 15:15 → JONCCHEMO 15:15
PROVIDERS: ATTEND Internal Medicine Hematology & Oncology
PROC: 3E0437Z Introduction of Electrolytic and Water Balance Substance into Central Vein, Percutaneous Approach (ICD-10-PCS; principal; 2023-10-18)
DX: C18.2 Malignant neoplasm of ascending colon (principal); C78.7 Secondary malignant neoplasm of liver and intrahepatic bile duct
CPT/HCPCS: 96360; 96372

== ENCOUNTER 2023-12-02 13:04 | Emergency (ER) | payer OTHER ==
[2023-12-02 13:33] VITALS: BP 137/90; PULSE 71; RESP 17; TEMP 98.1; BMI 24.3
[2023-12-02] MEDS ORDERED: SODIUM CHLORIDE 1,000 ML IV STA (14:19)
[2023-12-02] MEDS ORDERED: morphine CARPU-JECT 2 MG/1 ML DISP.SYRIN IVPUSH ONE (14:19)
[2023-12-02] MEDS ORDERED: LIDOCAINE 5% TOPICAL PATCH TP ONE (14:19)
[2023-12-02] MEDS ORDERED: BACITRACIN ZINC 15 GM TUBE TOPICAL OINTMENT TP ONE (16:15)
[2023-12-02] MEDS ORDERED: BACITRACIN ZINC 15 GM TUBE TOPICAL OINTMENT ONE (16:29)
[2023-12-02] MEDS ORDERED: LIDOCAINE PATCH REMOVAL MC SCH (22:00)
== END 2023-12-02 16:15 | disposition home or self-care (01) ==
LOC: JER 13:04
DX: C18.9 Malignant neoplasm of colon, unspecified (principal); C77.2 Secondary and unspecified malignant neoplasm of intra-abdominal lymph nodes; R19.00 Intra-abdominal and pelvic swelling, mass and lump, unspecified site
CPT/HCPCS: 99283-25

== ENCOUNTER 2023-12-28 14:49 | Inpatient (IN) | payer OTHER ==
[2023-12-28] MEDS: SODIUM CHLORIDE 1,000 ML IV STA (16:30)
[2023-12-28] MEDS ORDERED: ACETAMINOPHEN INJECTION 100 ML ONE (16:38)
[2023-12-28 16:44] LABS: VENOUS BASE EXCESS 2.2 mmol/L (-2-2); VENOUS O2 SATURATION 43.4 % (70-80); VENOUS PCO2 42.1 mmHg (38-52); VENOUS PH 7.423 (7.310-7.410)
[2023-12-28 16:57] LABS: BASO % 0.8 % (0-2.0); EOS % 0.3 % (0-4.5); HEMATOCRIT 31.8 % (35.4-49); HEMOGLOBIN 10.1 GM/dL (11.7-16.9); MCH 27.3 pg (25.7-33.7); MCHC 31.6 g/dl (32.0-35.9); MEAN CELL VOLUME 86.4 fl (80-96); MONO % 5.9 % (3.8-10.2); PLATELET COUNT 670 10^3/uL (134-434); RBC 3.68 M/mm3 (4.00-5.60); RDW 18.8 % (11.9-15.9); WHITE BLOOD COUNT 10.2 K/mm3 (4.0-10.0)
[2023-12-28] MEDS: ACETAMINOPHEN 1000 MG/100 ML BAG IVPB ONE (16:59)
[2023-12-28 17:03] LABS: INR 1.47 (0.83-1.09); PROTHROMBIN TIME (PATIENT) 16.4 SEC (9.7-13.0)
[2023-12-28 17:06] LABS: ACTIVATED PTT 30.4 SECONDS (25.2-36.5)
[2023-12-28 17:08] LABS: POTASSIUM 4.5 mmol/L (3.5-5.1)
[2023-12-28 17:10] LABS: ALBUMIN 2.5 g/dl (3.4-5.0); CALCIUM 8.5 mg/dL (8.5-10.1)
[2023-12-28 17:13] LABS: CREATININE 0.8 mg/dL (0.55-1.3)
[2023-12-28 17:17] LABS: N-TERMINAL BNP 108.5 pg/ml (5-125)
[2023-12-28] MEDS ORDERED: LIDOCAINE 1%/EPI 1:100000 (20 ML MULTI DOSE VIAL) ONE (21:00)
[2023-12-28] MEDS: LIDOCAINE 1.5%-EPINEPHRINE 1:200,000/PF 30 ML VIAL PNB ONE (22:33)
[2023-12-28] MEDS ORDERED: ACETAMINOPHEN 1000 MG/100 ML BAG IVPB PRN (23:02)
[2023-12-28] MEDS ORDERED: MORPHINE SULFATE 2 MG/ML SYRINGE ONE (23:53)
[2023-12-28] MEDS: morphine CARPU-JECT 2 MG/1 ML DISP.SYRIN IVPUSH ONE (23:58)
[2023-12-29 01:18] LABS: BF WBC & OTHER NUCLEATED CELLS 469 /mm3
[2023-12-29 02:13] VITALS: BMI 21.9
[2023-12-29 03:31] LABS: COCAINE, UR NEGATIVE (NEGATIVE); METHADONE, UR NEGATIVE (NEGATIVE); PHENCYCLIDINE,URINE NEGATIVE (NEGATIVE); URINE BARBITURATES NEGATIVE (NEGATIVE)
[2023-12-29 03:35] LABS: OPIATES, URI NEGATIVE (NEGATIVE); URINE AMPHETAMINES NEGATIVE (NEGATIVE); URINE BENZODIAZEPINES NEGATIVE (NEGATIVE)
[2023-12-29 04:34] LABS: EPI CELLS 6 /uL (0-25.1); HYALINE CASTS 0 /uL (0-3.1); PH,URINE 5.5 (5.0-8.0); URINE APPEARANCE Clear; URINE BACTERIA 9 /uL (0-1359); URINE BILIRUBIN Negative (NEGATIVE); URINE COLOR DK YELLOW; URINE GLUCOSE (UA) Negative (NEGATIVE); URINE KETONE 15 mg/dl (NEGATIVE); URINE LEUK ESTERASE Negative (NEGATIVE); URINE NITRITE Negative (NEGATIVE); URINE PROTEIN 30 (NEGATIVE); URINE RBC 11 /uL (0-23.9); URINE WBC 15 /uL (0-25.8)
[2023-12-29 08:03] LABS: BODY FLUID MACROPHAGES 3 %; BODY FLUID MESOTHELIAL 3 %; BODY FLUID MONOCYTE 9 %
[2023-12-29 08:27] LABS: BASO % 0.3 % (0-2.0); EOS % 0.3 % (0-4.5); HEMATOCRIT 30.5 % (35.4-49); HEMOGLOBIN 9.6 GM/dL (11.7-16.9); LYMPH % 7.4 % (8-40); MCH 27.6 pg (25.7-33.7); MCHC 31.6 g/dl (32.0-35.9); MEAN CELL VOLUME 87.3 fl (80-96); MEAN PLT VOLUME 6.9 fl (7.5-11.1); MONO % 6.8 % (3.8-10.2); NEUT % 85.2 % (42.8-82.8); PLATELET COUNT 631 10^3/uL (134-434); RBC 3.49 M/mm3 (4.00-5.60); RDW 18.2 % (11.9-15.9)
[2023-12-29 08:48] LABS: POTASSIUM 4.7 mmol/L (3.5-5.1)
[2023-12-29 08:54] LABS: CALCIUM 8.7 mg/dL (8.5-10.1)
[2023-12-29 08:55] LABS: BLOOD UREA NITROGEN 15.4 mg/dL (7-18)
[2023-12-29 08:59] LABS: CREATININE 0.6 mg/dL (0.55-1.3)
[2023-12-29] MEDS: FERROUS SO4 325 MG TABLET (FP) PO SCH (08:59)
[2023-12-29 16:04] LABS: POTASSIUM 5.3 mmol/L (3.5-5.1)
[2023-12-29] MEDS: ACETAMINOPHEN 1000 MG/100 ML BAG IVPB PRN (18:47)
[2023-12-29] MEDS: traMADol HCL 50 MG TABLET PO ONE (20:15)
[2023-12-30] MEDS: MELATONIN 5 MG TABLETS PO PRN (02:39)
[2023-12-30 09:37] LABS: BASO % 0.3 % (0-2.0); EOS % 0.6 % (0-4.5); HEMATOCRIT 32.8 % (35.4-49); HEMOGLOBIN 10.5 GM/dL (11.7-16.9); LYMPH % 5.7 % (8-40); MCH 27.9 pg (25.7-33.7); MCHC 32.1 g/dl (32.0-35.9); MEAN CELL VOLUME 86.8 fl (80-96); MEAN PLT VOLUME 6.8 fl (7.5-11.1); MONO % 7.8 % (3.8-10.2); NEUT % 85.6 % (42.8-82.8); PLATELET COUNT 674 10^3/uL (134-434); RBC 3.78 M/mm3 (4.00-5.60); RDW 18.9 % (11.9-15.9); WHITE BLOOD COUNT 8.3 K/mm3 (4.0-10.0)
[2023-12-30 09:51] LABS: POTASSIUM 4.3 mmol/L (3.5-5.1)
[2023-12-30 09:58] LABS: ALBUMIN 2.4 g/dl (3.4-5.0); CALCIUM 8.5 mg/dL (8.5-10.1)
[2023-12-30 09:59] LABS: BLOOD UREA NITROGEN 13.4 mg/dL (7-18)
[2023-12-30 10:02] LABS: CREATININE 0.7 mg/dL (0.55-1.3)
[2023-12-30 10:03] LABS: BILIRUBIN,TOTAL 1.1 mg/dL (0.2-1); TOT PROT 6.4 g/dl (6.4-8.2)
[2023-12-30] MEDS: ENOXAPARIN NA (PORCINE) 40 MG/0.4 ML DISP.SYRIN SQ SCH (10:18)
[2023-12-30] MEDS: ACETAMINOPHEN 325 MG TABLET (FP) PO PRN (13:20)
[2023-12-31] MEDS: traMADol HCL 50 MG TABLET PO ONE ×2 (01:45→21:17)
[2023-12-31 14:09] LABS: BODY FLUID ALBUMIN 2.6 g/dL (Not Estab.)
[2023-12-31] MEDS: MELATONIN 5 MG TABLETS PO ONE (23:13)
[2024-01-01 08:06] LABS: BASO % 0.4 % (0-2.0); EOS % 1.7 % (0-4.5); HEMATOCRIT 30.7 % (35.4-49); HEMOGLOBIN 9.7 GM/dL (11.7-16.9); LYMPH % 7.3 % (8-40); MCH 27.7 pg (25.7-33.7); MCHC 31.7 g/dl (32.0-35.9); MEAN CELL VOLUME 87.4 fl (80-96); MONO % 9.3 % (3.8-10.2); NEUT % 81.3 % (42.8-82.8); PLATELET COUNT 689 10^3/uL (134-434); RBC 3.51 M/mm3 (4.00-5.60); RDW 18.8 % (11.9-15.9); WHITE BLOOD COUNT 8.8 K/mm3 (4.0-10.0)
[2024-01-01 08:35] LABS: CALCIUM 8.6 mg/dL (8.5-10.1)
[2024-01-01 08:36] LABS: ALBUMIN 2.4 g/dl (3.4-5.0); BLOOD UREA NITROGEN 15.6 mg/dL (7-18)
[2024-01-01 08:39] LABS: CREATININE 0.6 mg/dL (0.55-1.3)
[2024-01-01 08:41] LABS: BILIRUBIN,TOTAL 0.7 mg/dL (0.2-1); TOT PROT 6.3 g/dl (6.4-8.2)
[2024-01-01] MEDS: traMADol HCL 50 MG TABLET PO PRN (15:13)
[2024-01-03] MEDS ORDERED: DOCUSATE SODIUM 100 MG CAPSULE (FP) PO PRN (11:30)
[2024-01-03] MEDS: oxyCODONE HCL 5 MG TABLET PO PRN (19:32)
[2024-01-05 08:58] LABS: BASO % 0.4 % (0-2.0); EOS % 1.2 % (0-4.5); HEMATOCRIT 29.1 % (35.4-49); HEMOGLOBIN 9.2 GM/dL (11.7-16.9); LYMPH % 6.4 % (8-40); MCH 27.3 pg (25.7-33.7); MCHC 31.5 g/dl (32.0-35.9); MEAN CELL VOLUME 86.7 fl (80-96); MEAN PLT VOLUME 6.9 fl (7.5-11.1); MONO % 10.2 % (3.8-10.2); NEUT % 81.8 % (42.8-82.8); PLATELET COUNT 745 10^3/uL (134-434); RBC 3.36 M/mm3 (4.00-5.60); WHITE BLOOD COUNT 8.8 K/mm3 (4.0-10.0)
[2024-01-05 09:35] LABS: ALBUMIN 2.4 g/dl (3.4-5.0); BLOOD UREA NITROGEN 16.2 mg/dL (7-18)
[2024-01-05 09:38] LABS: CREATININE 0.7 mg/dL (0.55-1.3)
[2024-01-05 09:39] LABS: BILIRUBIN,TOTAL 0.8 mg/dL (0.2-1)
[2024-01-05 09:40] LABS: CALCIUM 8.7 mg/dL (8.5-10.1); TOT PROT 6.2 g/dl (6.4-8.2)
[2024-01-07] MEDS: MIRTAZAPINE 15 MG TABLET (FP) PO SCH (22:08)
[2024-01-08] MEDS ORDERED: DOCUSATE SODIUM 100 MG CAPSULE (FP) PO PRN (07:27)
[2024-01-08] MEDS ORDERED: MELATONIN 5 MG TABLETS PO PRN (07:27)
[2024-01-08] MEDS: FERROUS SO4 325 MG TABLET (FP) PO SCH (09:02)
[2024-01-08] MEDS: ACETAMINOPHEN 325 MG TABLET (FP) PO PRN (14:43)
[2024-01-09 14:02] VITALS: BP 122/71; PULSE 104; RESP 19; TEMP 97.9
== END 2024-01-10 12:48 | disposition home or self-care (01) | DRG 136 ==
LOC: JER 14:49 → JERBED 20:34 → J4S 12-29 00:29 → UNDODISIN 01-08 11:36
PROVIDERS: ADMIT Internal Medicine; ATTEND Internal Medicine
PROC: 0W9930Z Drainage of Right Pleural Cavity with Drainage Device, Percutaneous Approach (ICD-10-PCS; principal; 2024-01-06)
DX: C78.01 Secondary malignant neoplasm of right lung (principal); E43 Unspecified severe protein-calorie malnutrition; C18.9 Malignant neoplasm of colon, unspecified; C78.7 Secondary malignant neoplasm of liver and intrahepatic bile duct; J91.0 Malignant pleural effusion; Z68.21 Body mass index [BMI] 21.0-21.9, adult
CPT/HCPCS: 32550; 36415; 71045-TC-FY; 71046-TC-FY; 71260-TC; 74177-TC; 76604-TC; 80048; 80053; 80307; 81003; 82042; 82803; 82945; 83605; 83615; 83690; 83735; 83880; 83986; 84132; 84484; 85025; 85610; 85730; 87070; 87075; 87086; 87205; 93005; 93010; 93306-TC; 97116-GP; 97161-GP; 99291; J0131; Q9967

== ENCOUNTER 2024-01-21 13:08 | Inpatient (IN) | payer OTHER ==
[2024-01-21 14:59] LABS: BASO % 0.2 % (0-2.0); EOS % 0.3 % (0-4.5); HEMATOCRIT 34.2 % (35.4-49); HEMOGLOBIN 10.9 GM/dL (11.7-16.9); LYMPH % 6.3 % (8-40); MCH 26.7 pg (25.7-33.7); MCHC 31.9 g/dl (32.0-35.9); MEAN CELL VOLUME 83.6 fl (80-96); MEAN PLT VOLUME 6.8 fl (7.5-11.1); NEUT % 85.2 % (42.8-82.8); PLATELET COUNT 642 10^3/uL (134-434); RBC 4.09 M/mm3 (4.00-5.60); RDW 18.9 % (11.9-15.9); WHITE BLOOD COUNT 8.5 K/mm3 (4.0-10.0)
[2024-01-21 15:07] LABS: INR 1.38 (0.83-1.09); PROTHROMBIN TIME (PATIENT) 15.5 SEC (9.7-13.0)
[2024-01-21 15:30] LABS: ALBUMIN 2.5 g/dl (3.4-5.0); CALCIUM 9.2 mg/dL (8.5-10.1)
[2024-01-21 15:31] LABS: BLOOD UREA NITROGEN 17.8 mg/dL (7-18); MAGNESIUM 2.2 mg/dL (1.8-2.4)
[2024-01-21 15:34] LABS: CREATININE 0.8 mg/dL (0.55-1.3); PHOSPHOROUS 2.8 mg/dL (2.5-4.9)
[2024-01-21] MEDS: LACTATED RINGERS SOLUTION 1000 ML INFUS.BAG IV ONE (18:47)
[2024-01-21] MEDS ORDERED: CEFEPIME HCL/D5W 2 GM/50 ML BAG IVPB ONE (19:01)
[2024-01-21] MEDS: CEFEPIME HCL 2 GM VIAL (RESTRICTED TO ID) IVPB ONE (19:02)
[2024-01-21] MEDS ORDERED: VANCOMYCIN 1 GRAM (PRE-DOCKED) 1,000 MG/250 ML BAG IVPB ONE (19:37)
[2024-01-21] MEDS: VANCOMYCIN 1,000 MG in DEXTROSE 5%-WATER - 250 ML IVPB ONE (19:45)
[2024-01-21] MEDS: morphine CARPU-JECT 4 MG/1 ML DISP.SYRIN IVPUSH ONE (21:04)
[2024-01-21] MEDS ORDERED: morphine SULFATE 4 MG/ML VIAL ONE (21:06)
[2024-01-21] MEDS ORDERED: ACETAMINOPHEN 1000 MG/100 ML BAG IVPB PRN (21:24)
[2024-01-22] MEDS: morphine SULFATE 4 MG/ML VIAL IVPUSH PRN (05:21)
[2024-01-22 08:34] LABS: BASO % 0.4 % (0-2.0); EOS % 0.7 % (0-4.5); HEMATOCRIT 33.2 % (35.4-49); HEMOGLOBIN 10.3 GM/dL (11.7-16.9); LYMPH % 7.5 % (8-40); MCH 26.1 pg (25.7-33.7); MCHC 30.9 g/dl (32.0-35.9); MEAN CELL VOLUME 84.3 fl (80-96); MONO % 7.8 % (3.8-10.2); NEUT % 83.6 % (42.8-82.8); PLATELET COUNT 619 10^3/uL (134-434); RBC 3.94 M/mm3 (4.00-5.60); RDW 18.9 % (11.9-15.9); WHITE BLOOD COUNT 10.4 K/mm3 (4.0-10.0)
[2024-01-22 08:50] LABS: POTASSIUM 4.9 mmol/L (3.5-5.1)
[2024-01-22 09:06] LABS: CALCIUM 9.3 mg/dL (8.5-10.1)
[2024-01-22 09:08] LABS: ALBUMIN 2.4 g/dl (3.4-5.0); BLOOD UREA NITROGEN 17.5 mg/dL (7-18)
[2024-01-22 09:10] LABS: CREATININE 0.8 mg/dL (0.55-1.3)
[2024-01-22 09:11] LABS: BILIRUBIN,TOTAL 1.1 mg/dL (0.2-1)
[2024-01-22 09:12] LABS: TOT PROT 6.6 g/dl (6.4-8.2)
[2024-01-22] MEDS: CEFEPIME HCL/D5W 2 GM/50 ML BAG IVPB SCH (10:07)
[2024-01-22] MEDS: ENOXAPARIN NA (PORCINE) 40 MG/0.4 ML DISP.SYRIN SQ SCH (10:12)
[2024-01-22] MEDS: VANCOMYCIN/WATER 1250 MG 1,250 MG/250 ML BAG IVPB SCH (10:37)
[2024-01-22] MEDS ORDERED: VANCOMYCIN/WATER 1250 MG 1,250 MG/250 ML BAG IVPB SCH (21:00)
[2024-01-22] MEDS: FUROSEMIDE 40 MG/4 ML INJECTABLE VIAL IVPUSH SCH (21:54)
[2024-01-23] MEDS: AZTREONAM 1 GM in DEXTROSE 5%-WATER - 50 ML IVPB SCH (14:00)
[2024-01-23] MEDS: CEFEPIME HCL 2 GM VIAL (RESTRICTED TO ID) IVPB SCH (16:31)
[2024-01-25] MEDS: SODIUM CHLORIDE 1,000 ML IV SCH (14:45)
[2024-01-27 08:27] LABS: HEMOGLOBIN 10.6 GM/dL (11.7-16.9); MCH 26.2 pg (25.7-33.7); MCHC 31.1 g/dl (32.0-35.9); MEAN CELL VOLUME 84.5 fl (80-96); PLATELET COUNT 519 10^3/uL (134-434); RBC 4.03 M/mm3 (4.00-5.60); RDW 19.1 % (11.9-15.9); WHITE BLOOD COUNT 8.7 K/mm3 (4.0-10.0)
[2024-01-27 08:44] LABS: POTASSIUM 4.4 mmol/L (3.5-5.1)
[2024-01-27 08:46] LABS: ALBUMIN 2.2 g/dl (3.4-5.0); CALCIUM 9.2 mg/dL (8.5-10.1)
[2024-01-27 08:47] LABS: BLOOD UREA NITROGEN 32.9 mg/dL (7-18)
[2024-01-27 08:50] LABS: CREATININE 0.9 mg/dL (0.55-1.3)
[2024-01-27 08:51] LABS: TOT PROT 6.5 g/dl (6.4-8.2)
[2024-01-27 16:09] VITALS: BMI 23.9
[2024-01-28] MEDS: MELATONIN 5 MG TABLETS PO PRN (01:03)
[2024-01-28] MEDS ORDERED: DOCUSATE SODIUM 100 MG CAPSULE (FP) PO PRN (15:30)
[2024-01-28] MEDS ORDERED: FENTANYL PATCH WASTE TD PRN (16:00)
[2024-01-28] MEDS: fentaNYL 12mcg/hr PATCH.TD72 TD SCH (16:08)
[2024-01-28] MEDS: morphine SULFATE 4 MG/ML VIAL IVPUSH PRN (16:48)
[2024-01-29] MEDS: morphine SULFATE 4 MG/ML VIAL SQ PRN (06:05)
[2024-01-29 14:43] VITALS: BP 102/68; PULSE 102; RESP 16; TEMP 98
== END 2024-01-29 20:15 | DRG 136 ==
LOC: JER 13:08 → JERBED 19:18 → J5S 01-22 01:10 → J7W 01-22 13:01
PROVIDERS: ADMIT Internal Medicine; ATTEND Internal Medicine
DX: C78.01 Secondary malignant neoplasm of right lung (principal); C77.2 Secondary and unspecified malignant neoplasm of intra-abdominal lymph nodes; C78.7 Secondary malignant neoplasm of liver and intrahepatic bile duct; E43 Unspecified severe protein-calorie malnutrition; R64 Cachexia; J90 Pleural effusion, not elsewhere classified; R18.8 Other ascites; C18.9 Malignant neoplasm of colon, unspecified; D50.9 Iron deficiency anemia, unspecified; R62.7 Adult failure to thrive; Z68.24 Body mass index [BMI] 24.0-24.9, adult
CPT/HCPCS: 36415; 70450-TC; 71045-TC-FY; 71260-TC; 72050-TC-FY; 72070-TC-FY; 72100-TC-FY; 74177-TC; 80053; 82962; 83735; 84100; 85025; 85027; 85610; 85730; 86850; 86900; 86901; 87070; 87186; 87205; 93005; 93010; 97116-GP; 97161-GP; 99285-25; Q9967